=== PATIENT | female | born 2000 | race Caucasian/White ===

== ENCOUNTER 2018-08-10 11:23 | Emergency (ER) | payer BC, OTHER ==
--- OUTSIDE RECORDS SUMMARY | 2018-08-10 11:26 | XMS REPORT | Continuity of Care Document ---
:2000 Author Organization Interface Problems Problem Status Onset Classification Date Comments Source Date Reported ABDOMINAL Active [facility] CRAMPING 6 [facility] Discharge 04/03/2016 [facility] Diagnosis: 6 [facility] Abdominal pain in Discharge 03/21/2016 [facility] Diagnosis: 6 [facility] Normal IUP on ultrasound Discharge 03/21/2016 [facility] Diagnosis: 6 [facility] Dehydration VOMITING, 9 Active [facility] WEEKS 6 [place] Medications Medication Details Route Status Patient Ordering Order Source Instructions Provider Date Promethazine 25 mg, Route: Inactive [facility] IM, ONCE, 016 [place] Dosing Weight 60.318, kg, Priority: STAT, Start date: 03/31/16 20:52:00 CDT, Stop date: 03/31/16 20:52:00 CDT Ondansetron 4 mg, Route: Inactive [facility] IVP, ONCE, 016 [place] Dosing Weight 60.318, kg, Priority: STAT, Start date: 03/31/16 20:52:00 CDT, Stop date: 03/31/16 20:52:00 CDT Saline Flush 10 mL, Route: Inactive [facility] 0.9% IVP, Drug 016 [place] Form: INJ, Dosing Weight 60.318, kg, PRN, PRN Line Flush, Start date: 03/31/16 19:13:00 CDT, Duration: 30 day, Stop date: 04/30/16 19:12:00 CDTNotes: (Same as: BD Posiflush) Sodium Chloride 1,000 mL, Inactive [facility] 0.154 MEQ/ML 1,000 ml/hr, 016 [place] Injectable Infuse Over: Solution 1 hr, Route: IV, 1,000, Drug form: INJ, ONCE, Priority: STAT, Dosing Weight 60.318 kg, Start date: 03/31/16 19:13:00 CDT, Duration: 1 doses or times, Stop date: 03/31/16 19:13:00 CDT Phenergan 25 mg 25 mg=1 tab, Active [facility] oral tablet PO, Q6H, PRN 016 [place] Nausea, X 4 day, # 15 tab, 0 Refill(s) Promethazine 25 mg=1 supp, Active [facility] Hydrochloride 25 DC, Q6H, PRN 016 [place] MG Rectal Nausea & Suppository Vomiting, X 3 [Phenergan] day, # 12 supp, 0 Refill(s) Sodium Chloride 1,000 mL, Inactive [facility] 0.154 MEQ/ML Rate: 250 016 [place] Injectable ml/hr, Infuse Solution over: 4 hr, Route: IV, Dosing Weight 59.091 kg, Total Volume: 1,000, Start date: 03/18/16 16:48:00 CDT, Duration: 30 day, Stop date: 04/17/16 16:47:00 CDT Promethazine 12.5 mg, Inactive [facility] Route: IM, 016 [place] ONCE, Dosing Weight 59.091, kg, Priority: STAT, Start date: 03/18/16 15:34:00 CDT, Stop date: 03/18/16 15:34:00 CDT Sodium Chloride 2,000 mL, Inactive [facility] 0.154 MEQ/ML 4000 ml/hr, 016 [place] Injectable Infuse Over: Solution 30 minutes, Route: IV, 2,000, Drug form: INJ, ONCE, Priority: STAT, Dosing Weight 59.091 kg, Start date: 03/18/16 15:00:00 CDT, Duration: 1 doses or times, Stop date: 03/18/16 15:00:00 CDT Ondansetron 4 mg, 2 mL, Inactive [facility] Route: IVP, 016 [place] Drug form: INJ, ONCE, Dosing Weight 59.091, kg, Priority: STAT, Start date: 03/18/16 15:00:00 CDT, Stop date: 03/18/16 15:00:00 CDTNotes: (Same as: Zofran) MEDICATION WASTE Product Size: 4 mg Product Wasted: ___ mg Saline Flush 10 mL, Route: Inactive [facility] 0.9% IVP, Drug 016 [place] Form: INJ, Dosing Weight 59.091, kg, PRN, PRN Line Flush, Start date: 03/18/16 15:00:00 CDT, Duration: 30 day, Stop date: 04/17/16 14:59:00 CDTNotes: (Same as: BD Posiflush) Allergies, Adverse Reactions, Alerts Substance Category Reaction Severity Reaction Status Date Comments Source type Reported Immunizations Immunization Date Given Site Status Last Updated Comments Source Results Order Name Results Value Reference Date Interpretation Comments Source Range BLOOD BANK ABO/Rh O POS 04/01 [facility] [place] [id number] 04/01 [facility] mIU/mL [facility]AT[facility] Eosinophils # 0.1 K/CMM 0.0 - 0.5 04/01 [facility]EMAT[facility] Basophils # 0.0 K/CMM 0.0 - 0.2 04/01 [facility]EMAT[facility] Monocytes # 0.8 K/CMM 0.0 - 0.8 04/01 [facility] HEMAT[facility] Segs-Bands # 6.3 K/CMM 1.5 - 8.1 04/01 [facility]EMAT[facility] Lymphocytes # 2.8 K/CMM 1.0 - 5.5 04/01 [facility]EMAT[facility] Eosinophils 1.4 % 0.0 - 4.0 04/01 [facility] HEMAT[facility] Basophils 0.3 % 0.0 - 1.0 04/01 [facility]EMAT[facility] Lymphocytes 27.4 % 20.0 - 04/01 MH 40.0 [facility] HEMAT[facility] Monocytes 8.0 % 2.0 - 12.0 04/01 [facility] HEMAT[facility] Segs 62.9 % 45.0 - 08 [facility] 75.0 [facility] Hgb 11.7 g/dL 12.0 - 04/01 16.0 [facility] Hct 35.9 % 36.0 - 04/01 48.0 [facility] HEMAT[facility] WBC 10.1 K/CMM 3.7 - 10.4 04/01 [facility] HEMAT[facility] RBC 3.99 M/CMM 4.20 - 04/01 5.40 [facility] HEMAT[facility] MCV 90.0 fL 80.0 - 04/01 98.0 /2015 [facility] HEMAT[facility] MCH 29.3 pg 27.0 - 04/01 31.0 /2015 [facility] H[facility]AT[facility] MCHC 32.6 g/dL 32.0 - 04/01 36.0 /2015 [facility] HEMAT[facility] RDW 13.6 % 11.5 - 04/01 14.5 [facility]EMAT[facility] MPV 7.1 fL 7.4 - 10.4 04/01 [facility] HEMAT[facility] Platelet 322 K/CMM 133 - 450 04/01 [facility] URINE AND UA Bili Negative Negative 04/01 STOOL [facility] *NA* [facility] (03/31/16 7:46 PM) URINE AND UA 0.2 EU/dL 0.1 - 1.0 04/01 [facility] Urobilinogen [facility] URINE AND UA Nitrite Negative Negative 04/01 STOOL [facility] (03/31/16 7:46 PM) [facility] URINE AND UA Leuk Est Negative Negative 04/01 STOOL [facility] (03/31/16 7:46 PM) [facility] URINE AND UA Blood Trace Negative 04/01 STOOL [facility] *ABN* [facility] (03/31/16 7:46 PM) URINE AND UA Glucose Negative Negative 04/01 STOOL [facility] (03/31/16 7:46 PM) [place] URINE AND UA pH 6.0 5.0 - 8.0 04/01 STOOL [facility] URINE AND UA Protein Negative Negative 04/01 STOOL [facility] (03/31/16 7:46 PM) [place] URINE AND UA Ketones Negative Negative 04/01 STOOL [facility] *NA* [facility] (03/31/16 7:46 PM) URINE AND UA Spec Grav 1.025 <=1.030 04/01 STOOL [facility] URINE AND UA Turbidity Slight Cloudy Clear 04/01 STOOL [facility] (03/31/16 7:46 PM) [facility] URINE AND UA Color Yellow Yellow 04/01 STOOL [facility] *NA* [facility] (03/31/16 7:46 PM) URINE AND UA Mucus Few /LPF None Seen 04/01 STO[facility] /LPF [facility] URINE AND UA Bacteria Moderate None Seen 04/01 STO[facility] /HPF /HPF [facility] URINE AND UA RBC 0-2 /HPF 0 - 2 04/01 STOOL [facility] URINE AND UA WBC 0-2 /HPF None Seen 04/01 STOOL /HPF /2015 [facility] URINE AND Micro? Performed 04/01 [facility] (03/31/16 7:46 PM) [facility] URINE AND UA Sq Epi Few /LPF Few /LPF 04/01 STOOL [facility] Preg < Preg < 14wks EXAM: 03/31 - 14wks Single gest w /2015 - [facility] Single gest Transvag US Pelvic ultrasound. [facility] w Transvag US Read by: Lv Berrios MD Dictated Date/time: 03/31/16 20:34 INDICATION: Electronically Signed by: Lv Berrios MD 03/31/16 20:37 FINAL REPORT Pelvic pain. TECHNIQUE: Grayscale and Doppler sonogram of the pelvis. Transabdominal technique was used. Transvaginal technique was used for better evaluation of the pelvic viscera. Note: MSD=mean sac diameter. CRL=crown-rump length. LMP=last menstrual period. MA=mean gestational age. ZAIN=estimated date of delivery. COMPARISON: 03/18/16. FINDINGS: Uterus: Anteverted. Measures 11.8 x 6.1 x 7.6 cm. Endometrium: Intrauterine gestational sac. Gestational sac: MSD measures 3.97 cm. Shape is oval. Fetus: CRL measures 4.21 cm. Heart rate: 169 bpm. Other: Subchorionic hematoma: None. Amniotic fluid: Subjectively within normal limits. Maternal ovaries: Right: Measures 2.99 x 2.05 x 3.38 cm. Normal doppler flow. Left: Measures 3.22 x 1.54 x 2.84 cm. Normal doppler flow. Clinical: LMP: 01/15/16. MA: 10 weeks 6 days. ZAIN: 10/21/16. Ultrasound: MA: 10 weeks 3 days. ZAIN: 10/24/16. IMPRESSION: 1. Single live intrauterine . HEMATOLOGY D-Dimer 0.30 ug/mL 03/18 FEU /2015 [facility] [place] [id number] 03/18 GY mIU/mL /2015 [facility] CHEM PANEL eGFR 139 03/18 Result mL/min/1.73 /2016 Comment: The [facility] eGFR is [place] calculated using the modified Maya equation 0.413 x Height (cm) /Serum Creatinine (mg/dL). CHEM PANEL AST 12 unit/L 0 - 37 03/18 [facility] CHEM PANEL Total Protein 7.0 g/dL 6.4 - 8.4 03/18 [facility] CHEM PANEL Albumin Lvl 3.6 g/dL 3.5 - 5.0 03/18 [facility] CHEM PANEL Calcium Lvl 8.1 mg/dL 8.5 - 10.5 03/18 [facility] CHEM PANEL ALT 16 unit/L 0 - 65 03/18 [facility] CHEM PANEL Bili Total 0.2 mg/dL 0.2 - 1.3 03/18 [facility] CHEM PANEL Alk Phos 61 unit/L 39 - 136 03/18 [facility] CHEM PANEL CO2 27 meq/L 24 - 32 03/18 [facility] CHEM PANEL Chloride Lvl 105 meq/L 95 - 109 03/18 [facility] CHEM PANEL Glucose Lvl 75 mg/dL 70 - 99 03/18 [facility] CHEM PANEL BUN 7 mg/dL 7 - 22 03/18 [facility] CHEM PANEL Creatinine 0.48 mg/dL 0.50 - 03/18 MH Lvl 1.40 /2015 [facility] CHEM PANEL Potassium Lvl 3.8 meq/L 3.5 - 5.1 03/18 [facility] CHEM PANEL Sodium Lvl 140 meq/L 135 - 145 03/18 [facility] CHEM PANEL A/G Ratio 1.1 0.7 - 1.6 03/18 [facility] CHEM PANEL Globulin 3.4 g/dL 2.0 - 4.0 03/18 [facility] CHEM PANEL B/C Ratio 15 6 - 25 03/18 [facility] CHEM PANEL AGAP 11.8 meq/L 10.0 - 03/18 MH 20.0 [facility] CHEM PANEL Magnesium Lvl 2.0 mg/dL 1.8 - 2.4 03/18 [facility] CHEM PANEL Phosphorus 4.5 mg/dL 2.5 - 4.5 03/18 [facility] HEMATOLOGY Lymphocytes # 2.4 K/CMM 1.0 - 5.5 03/18 [facility] HEMATOLOGY Monocytes 7.7 % 2.0 - 12.0 03/18 [facility] HEMATOLOGY Segs 67.9 % 45.0 - 07/18 MH 75.0 /2015 [facility] HEMATOLOGY Lymphocytes 23.3 % 20.0 - 03/18 MH 40.0 /2015 [facility] HEMATOLOGY Eosinophils 0.9 % 0.0 - 4.0 03/18 MH [facility] HEMATOLOGY Basophils 0.2 % 0.0 - 1.0 03/18 MH [facility] HEMATOLOGY Segs-Bands # 6.9 K/CMM 1.5 - 8.1 03/18 [facility] HEMATOLOGY Monocytes # 0.8 K/CMM 0.0 - 0.8 03/18 MH [facility] HEMATOLOGY Eosinophils # 0.1 K/CMM 0.0 - 0.5 03/18 [facility] HEMATOLOGY Basophils # 0.0 K/CMM 0.0 - 0.2 03/18 [facility] HEMATOLOGY RDW 13.6 % 11.5 - 03/18 MH 14.5 [facility] HEMATOLOGY Platelet 316 K/CMM 133 - 450 03/18 [facility] HEMATOLOGY MPV 7.5 fL 7.4 - 10.4 03/18 [facility] HEMATOLOGY MCV 88.2 fL 80.0 - 03/18 MH 98.0 /2015 [facility] HEMATOLOGY MCH 29.8 pg 27.0 - 03/18 MH 31.0 [facility] HEMATOLOGY MCHC 33.8 g/dL 32.0 - 03/18 MH 36.0 /2015 [facility] HEMATOLOGY Hct 34.7 % 36.0 - 03/18 MH 48.0 /2015 [facility] HEMATOLOGY RBC 3.94 M/CMM 4.20 - 03/18 MH 5.40 /2015 [facility] HEMATOLOGY Hgb 11.7 g/dL 12.0 - 03/18 MH 16.0 [facility] HEMATOLOGY WBC 10.2 K/CMM 3.7 - 10.4 03/18 [facility] URINE AND UA Bacteria Few /HPF None Seen 03/18 MH STOOL /HPF /2015 [facility] URINE AND UA RBC 0-2 /HPF 0 - 2 03/18 MH STOOL /2016 [facility] URINE AND UA Amorph Few /HPF None Seen 03/18 STOOL [facility] /HPF /2015 [facility] URINE AND UA Spec Grav 1.020 <=1.030 03/18 STOOL /2015 [facility] URINE AND UA 0.2 EU/dL 0.1 - 1.0 03/18 STOOL Urobilinogen /2015 [facility] URINE AND UA Blood Trace Negative 03/18 STOOL [facility] *ABN* [facility] (03/18/16 1:37 PM) URINE AND UA Bili Negative Negative 03/18 [facility] *NA* [facility] (03/18/16 1:37 PM) URINE AND UA Glucose Negative Negative 03/18 STOOL [facility] (03/18/16 1:37 PM) [place] URINE AND UA Protein Negative Negative 03/18 STOOL [facility] (03/18/16 1:37 PM) [place] URINE AND UA pH 7.0 5.0 - 8.0 03/18 STOOL [facility] URINE AND UA Ketones Negative Negative 03/18 [facility] *NA* [facility] (03/18/16 1:37 PM) URINE AND UA Turbidity Slight Cloudy Clear 03/18 [facility] (03/18/16 1:37 PM) [place] URINE AND UA Color Yellow Yellow 03/18 [facility] *NA* [facility] (03/18/16 1:37 PM) URINE AND UA Leuk Est Negative Negative 03/18 [facility] (03/18/16 1:37 PM) [place] URINE AND UA Nitrite Negative Negative 03/18 STOOL [facility] (03/18/16 1:37 PM) [place] URINE AND UA WBC 0-2 /HPF None Seen 03/18 /HPF [facility] URINE AND UA Sq Epi Rare /LPF Few /LPF 03/18 [facility] URINE CHEM U Preg Positive Negative 03/18 [facility] *ABN* [facility] (03/18/16 1:37 PM) Preg < Preg < 14wks EXAM: 03/18 - 14wks sing sing gest w /2015 - [facility] gest w transvag/Dop Pelvic ultrasound. [facility] transvag/Do US p US Read by: Jose Alberto Rock MD Dictated Date/time: 03/18/16 16:32 INDICATION: Electronically Signed by: Jose Alberto Rock MD 03/18/16 16:35 FINAL REPORT Pelvic pain. Age: 15 years. Gender: Female. TECHNIQUE: Grayscale and Doppler sonogram of the pelvis. Transabdominal technique was used. Transvaginal technique was used for better evaluation of the pelvic viscera. Note: MSD=mean sac diameter. CRL=crown-rump length. LMP=last menstrual period. MA=mean gestational age. ZAIN=estimated date of delivery. COMPARISON: None. FINDINGS: Uterus: Visualization: Well seen. Anteverted. Measures 9.1 x 5.6 x 7 cm. Endometrium: Intrauterine gestational sac. Gestational sac: MSD measures 3.7 cm. Shape is oval. Fetus: CRL measures 2.5 cm. Heart rate: 170 bpm. Other: Subchorionic hematoma: None. Amniotic fluid: Subjectively within normal limits. Maternal ovaries: Right: Measures 2.8 x 1.7 x 2.2 cm. Doppler flow present. Left: Measures 2.6 x 1.9 x 2.1 cm. Doppler flow present. Clinical: LMP: 01/15/2016. MA: 9 weeks 0 days. ZAIN: 10/21/2016. Ultrasound: MA: 9 weeks 2 days. ZAIN: 10/19/2016. IMPRESSION: 1. Single live intrauterine . Vital Signs Vital Sign Value Date Comments Source Respitory Rate 17 04/01/2016 [facility] Heart Rate 88 04/01/2016 [facility] Height 162.56 cm 03/31/2016 [facility] BMI Calculated 22.83 03/31/2016 [facility] Weight 60.318 03/31/2016 [facility] Systolic (mm Hg) 131 03/31/2016 [facility] Diastolic (mm Hg) 69 03/31/2016 [facility] Heart Rate 87 03/31/2016 [facility] Respitory Rate 18 03/31/2016 [facility] Temperature Oral (F) 97.4 F 03/31/2016 [facility] Systolic (mm Hg) 112 03/18/2016 [facility] Diastolic (mm Hg) 62 03/18/2016 [facility] Heart Rate 88 03/18/2016 [facility] Respitory Rate 20 03/18/2016 [facility] Temperature Oral (F) 98.2 F 03/18/2016 [facility] Weight 59.091 03/18/2016 [facility] BMI Calculated 22.36 03/18/2016 [facility] Height 162.56 cm 03/18/2016 [facility] Temperature Oral (F) 98.2 F 03/18/2016 [facility] Respitory Rate 20 03/18/2016 [facility] Heart Rate 92 03/18/2016 [facility] Systolic (mm Hg) 105 03/18/2016 [facility] Diastolic (mm Hg) 66 03/18/2016 [facility] Encounters Location Location Encounter Encounter Reason Attending ADM DC Status Source Details Type Number For Provider Date Date Visit [facility] [id number] Radha 03/18 03/18 [facility] [place] [facility] /2015 [facility] [place] [id number] Crcharis Reynaga 03/31 04/01 [facility] [place] [facility] /2015 [facility] [id number] CAROLA-LILI 04/25 [facility] /2015 [facility] [id number] CAROLA-LILI 05/23 Active [facility] /2016 [facility] Procedures Procedure Code Date Perfomer Comments Source
--- OUTSIDE RECORDS SUMMARY | 2018-08-10 11:27 | XMS REPORT | Summary of Care ---
:2000 Author Organization [facility] Address [address], [place] [address]- Encounter [facility] Tylor(REBECCA) [id number] Date(s): 03/31/16 - 03/31/16 [facility] [address] [place] [address]- Discharge Diagnosis: Abdominal pain in Discharge Disposition: Home or Self Care Attending Physician: Cr Reynaga MD Vital Signs Most recent to oldest [Reference Range]: 1 2 Height 162.56 cm (03/31/16 6:44 PM) Temperature Oral [96.8-99.7 DegF] 97.4 DegF (03/31/16 6:44 PM) Blood Pressure [90-138/45-84 mmHg] 131/69 mmHg (03/31/16 6:44 PM) Respiratory Rate [14-20 BRMIN] 17 BRMIN 18 BRMIN (03/31/16 9:58 PM) (03/31/16 6:44 PM) Peripheral Pulse Rate [55-90 bpm] 88 bpm 87 bpm (03/31/16 9:58 PM) (03/31/16 6:44 PM) Weight 60.318 kg (03/31/16 6:44 PM) Body Mass Index 22.83 m2 (03/31/16 6:44 PM) Problem List No data available for this section Allergies, Adverse Reactions, Alerts Substance Reaction Severity Status NKDA Active Medications ondansetron 4 mg, Route: IVP, ONCE, Dosing Weight 60.318, kg, Priority: STAT, Start date: 20:52:00 CDT,Stop date: 03/31/16 20:52:00 CDT Start Date: 03/31/16 Stop Date: 03/31/16 Status: Discontinuedpromethazine 25 mg, Route: IM, ONCE, Dosing Weight 60.318, kg, Priority: STAT, Start date: 20:52:00 CDT,Stop date: 03/31/16 20:52:00 CDT Start Date: 03/31/16 Stop Date: 03/31/16 Status: CompletedSaline Flush 0.9% 10 mL, Route: IVP, Drug Form: INJ, Dosing Weight 60.318, kg, PRN, PRN Line Flush , Start date: 03/31/16 19:13:00 CDT, Duration: 30 day, Stop date: 04/30/16 19:12 :00 CDT Notes: (Same as: BD Posiflush) Start Date: 03/31/16 Stop Date: 03/31/16 Status: DiscontinuedSodium Chloride 0.9% (Bolus) IV 1,000 mL, 1,000 ml/hr, Infuse Over: 1 hr, Route: IV, 1,000, Drug form: INJ, ONCE , Priority: STAT, Dosing Weight 60.318 kg, Start date: 03/31/16 19:13:00 CDT, Duration: 1 doses or times, Stop date: 03/31/16 19:13:00 CDT Start Date: 03/31/16 Stop Date: 03/31/16 Status: Completed Results BLOOD BANK RESULTS Most recent to oldest [Reference Range]: 1 ABO/Rh O POS *Unknown* (03/31/16 7:46 PM) ENDOCRINOLOGY Most recent to oldest [Reference Range]: 1 h[place] Tot 44190 mIU/mL *NA* (03/31/16 7:46 PM) URINE AND STOOL Most recent to oldest [Reference Range]: 1 UA Turbidity [Clear] Slight Cloudy (03/31/16 7:46 PM) UA Color [Yellow] Yellow *NA* (03/31/16 7:46 PM) UA pH [5.0-8.0] 6.0 (03/31/16 7:46 PM) UA Spec Grav [<=1.030] 1.025 (03/31/16 7:46 PM) UA Glucose [Negative] Negative (03/31/16 7:46 PM) UA Blood [Negative] Trace *ABN* (03/31/16 7:46 PM) UA Ketones [Negative] Negative *NA* (03/31/16 7:46 PM) UA Protein [Negative] Negative (03/31/16 7:46 PM) UA Urobilinogen [0.1-1.0 EU/dL] 0.2 EU/dL (03/31/16 7:46 PM) UA Bili [Negative] Negative *NA* (03/31/16 7:46 PM) UA Leuk Est [Negative] Negative (03/31/16 7:46 PM) UA Nitrite [Negative] Negative (03/31/16 7:46 PM) UA WBC [None Seen /HPF] 0-2 /HPF (03/31/16 7:46 PM) UA RBC [0-2 /HPF] 0-2 /HPF (03/31/16 7:46 PM) UA Bacteria [None Seen /HPF] Moderate /HPF (03/31/16 7:46 PM) UA Sq Epi [Few /LPF] Few /LPF (03/31/16 7:46 PM) UA Mucus [None Seen /LPF] Few /LPF (03/31/16 7:46 PM) Micro? Performed (03/31/16 7:46 PM) HEMATOLOGY Most recent to oldest [Reference Range]: 1 WBC [3.7-10.4 K/CMM] 10.1 K/CMM (03/31/16 7:46 PM) RBC [4.20-5.40 M/CMM] 3.99 M/CMM *LOW* (03/31/16 7:46 PM) Hgb [12.0-16.0 g/dL] 11.7 g/dL *LOW* (03/31/16 7:46 PM) Hct [36.0-48.0 %] 35.9 % *LOW* (03/31/16 7:46 PM) MCV [80.0-98.0 fL] 90.0 fL (03/31/16 7:46 PM) MCH [27.0-31.0 pg] 29.3 pg (03/31/16 7:46 PM) MCHC [32.0-36.0 g/dL] 32.6 g/dL (03/31/16 7:46 PM) RDW [11.5-14.5 %] 13.6 % (03/31/16 7:46 PM) Platelet [133-450 K/CMM] 322 K/CMM (03/31/16 7:46 PM) MPV [7.4-10.4 fL] 7.1 fL *LOW* (03/31/16 7:46 PM) Segs [45.0-75.0 %] 62.9 % (03/31/16 7:46 PM) Lymphocytes [20.0-40.0 %] 27.4 % (03/31/16 7:46 PM) Monocytes [2.0-12.0 %] 8.0 % (03/31/16 7:46 PM) Eosinophils [0.0-4.0 %] 1.4 % (03/31/16 7:46 PM) Basophils [0.0-1.0 %] 0.3 % (03/31/16 7:46 PM) Segs-Bands # [1.5-8.1 K/CMM] 6.3 K/CMM (03/31/16 7:46 PM) Lymphocytes # [1.0-5.5 K/CMM] 2.8 K/CMM (03/31/16 7:46 PM) Monocytes # [0.0-0.8 K/CMM] 0.8 K/CMM (03/31/16 7:46 PM) Eosinophils # [0.0-0.5 K/CMM] 0.1 K/CMM (03/31/16 7:46 PM) Basophils # [0.0-0.2 K/CMM] 0.0 K/CMM (03/31/16 7:46 PM) Immunizations No data available for this section Procedures No data available for this section Social History Social History Type Response Smoking Status Never smoker; Previous treatment: None; Concerns about tobacco use in household: No; Exposure to Tobacco Smoke None; Cigarette Smoking Last 365 Days Yes; Reg Smoking Cessation Counseling No Assessment and Plan No data available for this section
--- OUTSIDE RECORDS SUMMARY | 2018-08-10 11:27 | XMS REPORT | Summary of Care ---
:2000 Author Organization [facility] Address [address], [place] [address]- Encounter [facility](FIN) [phone] Date(s): 03/18/16 - 03/18/16 [facility] [address] [place] [address]- Discharge Diagnosis: Normal IUP (intrauterine ) on ultrasound Discharge Diagnosis: Dehydration Discharge Disposition: Home or Self Care Attending Physician: Radha Penny MD Vital Signs Most recent to oldest [Reference Range]: 1 2 Height 162.56 cm (03/18/16 1:22 PM) Temperature Oral [96.8-99.7 DegF] 98.2 DegF 98.2 DegF (03/18/16 5:47 PM) (03/18/16 1:22 PM) Blood Pressure [90-138/45-84 mmHg] 112/62 mmHg 105/66 mmHg (03/18/16 5:47 PM) (03/18/16 1:22 PM) Respiratory Rate [14-20 BRMIN] 20 BRMIN 20 BRMIN (03/18/16 5:47 PM) (03/18/16 1:22 PM) Peripheral Pulse Rate [55-90 bpm] 88 bpm 92 bpm (03/18/16 5:47 PM) *HI* (03/18/16 1:22 PM) Weight 59.091 kg (03/18/16 1:22 PM) Body Mass Index 22.36 m2 (03/18/16 1:22 PM) Problem List No data available for this section Allergies, Adverse Reactions, Alerts Substance Reaction Severity Status NKDA Active Medications ondansetron 4 mg, 2 mL, Route: IVP, Drug form: INJ, ONCE, Dosing Weight 59.091, kg, Priority : STAT, Start date: 03/18/16 15:00:00 CDT, Stop date: 03/18/16 15:00:00 CDT Notes: (Same as: Zofran) MEDICATION WASTE Product Size: 4 mgProduct Wasted: ___ mg Start Date: 03/18/16 Stop Date: 03/18/16 Status: DiscontinuedPhenergan 25 mg oral tablet 25 mg=1 tab, PO, Q6H, PRN Nausea, X 4 day, # 15 tab, 0 Refill(s) Start Date: 03/18/16 Stop Date: 03/22/16 Status: OrderedPhenergan 25 mg rectal suppository 25 mg=1 supp, [place], Q6H, PRN Nausea & Vomiting, X 3 day, # 12 supp, 0 Refill(s ) Start Date: 03/18/16 Stop Date: 03/21/16 Status: Orderedpromethazine 12.5 mg, Route: IM, ONCE, Dosing Weight 59.091, kg, Priority: STAT, Start date: 03/18/16 15:34:00 CDT, Stop date: 03/18/16 15:34:00 CDT Start Date: 03/18/16 Stop Date: 03/18/16 Status: CompletedSaline Flush 0.9% 10 mL, Route: IVP, Drug Form: INJ, Dosing Weight 59.091, kg, PRN, PRN Line Flush , Start date: 03/18/16 15:00:00 CDT, Duration: 30 day, Stop date: 04/17/16 14:59 :00 CDT Notes: (Same as: BD Posiflush) Start Date: 03/18/16 Stop Date: 03/18/16 Status: Discontinuedsodium chloride 0.9% 1000 ml INJ 1,000 mL 1,000 mL, Rate: 250 ml/hr, Infuse over: 4 hr, Route: IV, Dosing Weight 59.091 kg , Total Volume: 1,000, Start date: 03/18/16 16:48:00 CDT, Duration: 30 day, Stop date: 04/17/16 16:47:00 CDT Start Date: 03/18/16 Stop Date: 03/18/16 Status: DiscontinuedSodium Chloride 0.9% IV (Sodium Chloride 0.9% (Bolus) IV) 2,000 mL, 4000 ml/hr, Infuse Over: 30 minutes, Route: IV, 2,000, Drug form: INJ , ONCE, Priority: STAT, Dosing Weight 59.091 kg, Start date: 03/18/16 15:00:00 CDT, Duration: 1 doses or times, Stop date:03/18/16 15:00:00 CDT Start Date: 03/18/16 Stop Date: 03/18/16 Status: Completed Results ELECTROLYTES Most recent to oldest [Reference Range]: 1 Sodium Lvl [135-145 mEq/L] 140 mEq/L (03/18/16 3:30 PM) Potassium Lvl [3.5-5.1 mEq/L] 3.8 mEq/L (03/18/16 3:30 PM) Chloride Lvl [95-109 mEq/L] 105 mEq/L (03/18/16 3:30 PM) CO2 [24-32 mEq/L] 27 mEq/L (03/18/16 3:30 PM) AGAP [10.0-20.0 mEq/L] 11.8 mEq/L (03/18/16 3:30 PM) CHEM PANEL Most recent to oldest [Reference Range]: 1 Creatinine Lvl [0.50-1.40 mg/dL] 0.48 mg/dL *LOW* (03/18/16 3:30 PM) eGFR 139 mL/min/1.73m2 1 *NA* (03/18/16 3:30 PM) BUN [7-22 mg/dL] 7 mg/dL (03/18/16 3:30 PM) B/C Ratio [6-25] 15 (03/18/16 3:30 PM) Glucose Lvl [70-99 mg/dL] 75 mg/dL (03/18/16 3:30 PM) Total Protein [6.4-8.4 g/dL] 7.0 g/dL (03/18/16 3:30 PM) Albumin Lvl [3.5-5.0 g/dL] 3.6 g/dL (03/18/16 3:30 PM) Globulin [2.0-4.0 g/dL] 3.4 g/dL (03/18/16 3:30 PM) A/G Ratio [0.7-1.6] 1.1 (03/18/16 3:30 PM) Calcium Lvl [8.5-10.5 mg/dL] 8.1 mg/dL *LOW* (03/18/16 3:30 PM) Phosphorus [2.5-4.5 mg/dL] 4.5 mg/dL (03/18/16 3:30 PM) Magnesium Lvl [1.8-2.4 mg/dL] 2.0 mg/dL (03/18/16 3:30 PM) ALT [0-65 unit/L] 16 unit/L (03/18/16 3:30 PM) AST [0-37 unit/L] 12 unit/L (03/18/16 3:30 PM) Alk Phos [39-136 unit/L] 61 unit/L (03/18/16 3:30 PM) Bili Total [0.2-1.3 mg/dL] 0.2 mg/dL (03/18/16 3:30 PM) 1Result Comment: The eGFR is calculated using the modified Maya equation 0.413 x Height (cm) /Serum Creatinine (mg/dL).ENDOCRINOLOGY Most recent to oldest [Reference Range]: 1 [place] Tot 36948 mIU/mL *NA* (03/18/16 3:40 PM) URINE CHEM Most recent to oldest [Reference Range]: 1 U Preg [Negative] Positive *ABN* (03/18/16 1:37 PM) URINE AND STOOL Most recent to oldest [Reference Range]: 1 UA Turbidity [Clear] Slight Cloudy (03/18/16 1:37 PM) UA Color [Yellow] Yellow *NA* (03/18/16 1:37 PM) UA pH [5.0-8.0] 7.0 (03/18/16 1:37 PM) UA Spec Grav [<=1.030] 1.020 (03/18/16 1:37 PM) UA Glucose [Negative] Negative (03/18/16 1:37 PM) UA Blood [Negative] Trace *ABN* (03/18/16 1:37 PM) UA Ketones [Negative] Negative *NA* (03/18/16 1:37 PM) UA Protein [Negative] Negative (03/18/16 1:37 PM) UA Urobilinogen [0.1-1.0 EU/dL] 0.2 EU/dL (03/18/16 1:37 PM) UA Bili [Negative] Negative *NA* (03/18/16 1:37 PM) UA Leuk Est [Negative] Negative (03/18/16 1:37 PM) UA Nitrite [Negative] Negative (03/18/16 1:37 PM) UA WBC [None Seen /HPF] 0-2 /HPF (03/18/16 1:37 PM) UA RBC [0-2 /HPF] 0-2 /HPF (03/18/16 1:37 PM) UA Bacteria [None Seen /HPF] Few /HPF (03/18/16 1:37 PM) UA Sq Epi [Few /LPF] Rare /LPF (03/18/16 1:37 PM) UA Amorph Leslie [None Seen /HPF] Few /HPF *ABN* (03/18/16 1:37 PM) HEMATOLOGY Most recent to oldest [Reference Range]: 1 WBC [3.7-10.4 K/CMM] 10.2 K/CMM (03/18/16 3:30 PM) RBC [4.20-5.40 M/CMM] 3.94 M/CMM *LOW* (03/18/16 3:30 PM) Hgb [12.0-16.0 g/dL] 11.7 g/dL *LOW* (03/18/16 3:30 PM) Hct [36.0-48.0 %] 34.7 % *LOW* (03/18/16 3:30 PM) MCV [80.0-98.0 fL] 88.2 fL (03/18/16 3:30 PM) MCH [27.0-31.0 pg] 29.8 pg (03/18/16 3:30 PM) MCHC [32.0-36.0 g/dL] 33.8 g/dL (03/18/16 3:30 PM) RDW [11.5-14.5 %] 13.6 % (03/18/16 3:30 PM) Platelet [133-450 K/CMM] 316 K/CMM (03/18/16 3:30 PM) MPV [7.4-10.4 fL] 7.5 fL (03/18/16 3:30 PM) Segs [45.0-75.0 %] 67.9 % (03/18/16 3:30 PM) Lymphocytes [20.0-40.0 %] 23.3 % (03/18/16 3:30 PM) Monocytes [2.0-12.0 %] 7.7 % (03/18/16 3:30 PM) Eosinophils [0.0-4.0 %] 0.9 % (03/18/16 3:30 PM) Basophils [0.0-1.0 %] 0.2 % (03/18/16 3:30 PM) Segs-Bands # [1.5-8.1 K/CMM] 6.9 K/CMM (03/18/16 3:30 PM) Lymphocytes # [1.0-5.5 K/CMM] 2.4 K/CMM (03/18/16 3:30 PM) Monocytes # [0.0-0.8 K/CMM] 0.8 K/CMM (03/18/16 3:30 PM) Eosinophils # [0.0-0.5 K/CMM] 0.1 K/CMM (03/18/16 3:30 PM) Basophils # [0.0-0.2 K/CMM] 0.0 K/CMM (03/18/16 3:30 PM) D-Dimer 0.30 ug/mL FEU *NA* (03/18/16 4:55 PM) Immunizations No data available for this [...]
[2018-08-10] MEDS ORDERED: NA CHLORIDE 0.9% 1,000 ML ONE (12:41)
[2018-08-10 12:48] LABS: Urine Bacteria LOADED /HPF (<20); Urine Culture Reflex Order NOT NEEDED; Urine White Blood Cell Casts 0-5 /LPF (NONE SEEN)
[2018-08-10 12:51] LABS: Absolute Lymphocytes (CBC) 2.5 K/uL (0.7-4.9); Absolute Monocytes 0.4 K/uL (0.1-1.3); Absolute Neutrophil 3.4 K/uL (1.8-8.0); Basophils % 0.3 % (0-1.3); Eosinophils % 1.9 % (0-4.4); Hematocrit 37.8 % (36.0-45.0); MCH 28.1 pg (27.0-35.0); MCV 83.4 fL (80-100); MPV 7.7 fL (7.6-11.3); RBC Red Blood Cell Count 4.54 M/uL (3.86-4.86)
[2018-08-10 13:02] LABS: BUN Blood Urea Nitrogen 7 mg/dL (7-18); Bicarbonate 27 mmol/L (21-32); Glucose Level 77 mg/dL (74-106); Potassium 3.5 mmol/L (3.5-5.1); Sodium Level 140 mmol/L (136-145)
--- NOTE | 2018-08-10 14:38 | RAD REPORT ---
EXAM DESCRIPTION: CT - Abdomen Pelvis W Contrast - 08/10/2018 2:20 pm CLINICAL HISTORY: UTI symptoms, dysuria, hematuria, fever and chills COMPARISON: None. TECHNIQUE: Biphasic, helical CT imaging of the abdomen and pelvis was performed following 100 ml non -ionic IV contrast. Oral contrast was given. All CT scans are performed using dose optimization technique as appropriate and may include automated exposure control or mA/KV adjustment according to patient size. FINDINGS: No suspicious findings in the lung bases. The liver, spleen, and pancreas show no suspicious findings. Gallbladder and biliary tree are also wi thout suspicious finding. Symmetric renal function is seen with no hydronephrosis or suspicious renal mass. No pyelonephritis f indings. There is minimal wall thickening of the ureters which could be a mild infectious/ inflammato ry process. This has not reached either renal pelvis. Urinary bladder morris are mildly prominent and may reflect a mild cystitis. No bladder calculus. No focal bladder wall thickening or mass. No gastric dilatation or wall thickening. No acute large or small bowel finding. No appendicitis find ings. Uterus and ovaries show no suspicious findings. No free air or pneumatosis. Physiologic quantity of free fluid is seen in the cul de sac. No hernia, mass or bulky lymphadenopathy. No adrenal abnormali ty. No suspicious bony findings. IMPRESSION: No pyelonephritis or acute renal parenchymal process seen. Mild prominence of the urinary bladder morris and ureter morris that may indicate cystitis/ ureteritis. 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
--- NOTE | 2018-08-10 14:56 | ER ---
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 Transition of care: patient was not received from another setting of care. Onset of symptoms was August 10, 2018. Risk Assessment: Do you want to hurt yourself or someone else? Patient reports no desire to harm self or others. Initial Sepsis Screen: Does the patient meet any 2 criteria? No. Patient's initial sepsis screen is negative. Does the patient have a suspected source of infection? No. Patient's initial sepsis screen is negative. Care prior to arrival: None. 11:48 Method Of Arrival: Ambulatory 11:48 Acuity: HALLEY 3 hj Triage Assessment: 11:51 General: Appears in no apparent distress. uncomfortable, Behavior is calm, cooperative, hj appropriate for age. Pain: Complains of pain in back Pain currently is 7 out of 10 on a pain scale. LINE PILOT: 11:52 LMP N/A - control method Historical: - Allergies: 11:51 No Known Allergies; hj - Home Meds: 11:51 control pill [Active]; hj - PMHx: 11:51 allergy; Anxiety; Depression; hj - PSHx: 11:51 None; hj - Immunization history:: Adult Immunizations up to date. - Social history:: Smoking status: Patient/guardian denies using tobacco, Patient/guardian denies using alcohol. - Ebola Screening: : Patient negative for fever greater than or equal to 101.5 degrees Fahrenheit, and additional compatible Ebola Virus Disease symptoms Patient denies exposure to infectious person Patient denies travel to an Ebola-affected area in the 21 days before illness onset. Screenin:52 Abuse screen: Denies threats or abuse. Denies injuries from another. Nutritional hj screening: No deficits noted. Tuberculosis screening: No symptoms or risk factors identified. Fall Risk None identified. Assessment: 12:14 General: Appears in no apparent distress. Behavior is calm, cooperative. Pain: iw Complains of pain in back. Neuro: Level of Consciousness is awake, alert, Oriented to person, place, time, situation, Moves all extremities. Full function. Cardiovascular: Capillary refill < 3 seconds Patient's skin is warm and dry. Respiratory: Respiratory effort is even, unlabored. 12:14 : Reports burning with urination, pain in suprapubic area. Derm: Skin is intact, is iw healthy with good turgor. 13:48 Reassessment: Patient appears in no apparent distress at this time. Patient and/or iw family updated on plan of care and expected duration. Pain level reassessed. Patient is alert, oriented x 3, equal unlabored respirations, skin warm/dry/pink. pt requesting pain and nausea medication, MADHURI Cruz notified. Vital Signs: 11:52 BP 127 / 92; Pulse 83; Resp 18; Temp 98.0(O); Pulse Ox 100% on R/A; Weight 65.77 kg; hj Height 5 ft. 4 in. (162.56 cm); Pain 7/10; 14:04 BP 120 / 82; Pulse 61; Resp 16; Temp 98.8(O); Pulse Ox 100% on R/A; Pain 7/10; iw 11:52 Body Mass Index 24.89 (65.77 kg, 162.56 cm) ED Course: 11:28 Patient arrived in ED. sb2 11:49 Triage completed. hj 11:52 [facility]ache[facility]C [facility]. kb 11:52 Bucky Packer MD is Attending Physician. kb 11:52 Arm band placed on right wrist. hj 11:53 Patient has correct armband on for positive identification. Bed in low position. Call light in reach. Side rails up X 1. 12:00 Urine collected: clean catch specimen, clear, aftab colored, Amount Voided: 120mL jp3 organish yellow in color with fish like smell. 12:06 Jada Merrill RN is Primary Nurse. ph 12:07 Primary Nurse role handed off by Jada Merrill RN iw 12:07 Remy, Rosette, RN is Primary Nurse. iw 12:20 Initial lab(s) drawn, by me, sent to lab. Inserted saline lock: 20 gauge in right jp3 antecubital area, using aseptic technique. Blood collected. 12:29 Urine Culture Sent. jp3 12:29 Urine Microscopic Only Sent. jp3 12:29 CBC with Diff Sent. jp3 12:29 Basic Metabolic Panel Sent. jp3 12:29 Urine --Ancillary (enter results) Sent. jp3 12:29 Urine Dipstick--Ancillary (enter results) Sent. jp3 14:20 CT Abd/Pelvis - W/Contrast In Process Unspecified. EDMS 15:17 No provider procedures requiring assistance completed. IV discontinued, bleeding rv controlled, No redness/swelling at site. Pressure dressing applied. Administered Medications: 12:39 Drug: NS 0.9% 1000 ml Route: IV; Rate: 1000 ml; Site: right antecubital; iw 15:17 Follow up: IV Status: Completed infusion rv 14:05 Drug: Phenergan 12.5 mg Route: IVP; Site: right antecubital; iw 15:17 Follow up: Response: No adverse reaction rv 15:16 Drug: TORadol 30 mg Route: IVP; Site: right antecubital; rv 15:16 Follow up: Response: Medication administered at discharge. rv Outcome: 14:56 Discharge ordered by . kb 15:18 Discharged to home ambulatory. rv 15:18 Condition: good 15:18 Discharge instructions given to patient, Instructed on discharge instructions, follow up and referral plans. medication usage, Demonstrated understanding of instructions, follow-up care, medications, Prescriptions given X 1. 15:19 Patient left the ED. rv Signatures: Dispatcher [employer] EDMS Nancy Pacheco, HAT CLEANER-C HAT CLEANER-Ckb Rosette Alberto, RN RN Jada Merrill RN RN Reed Camarillo RN RN Cathleen Porter sb2 Ramesh Kiran RN RN Se Wilkerson jp3 Corrections: (The following items were deleted from the chart) 11:54 11:52 Pulse 83bpm; Resp 18bpm; Pulse Ox 100% RA; Temp 98.0F Oral; 65.77 kg; Height 5 hj ft. 4 in.; BMI: 24.8; Pain 7/10; hj 14:59 12:14 Pain: Complains of pain in suprapubic area iw iw
--- NOTE | 2018-08-10 14:56 | EDPHYS ---
Physician Documentation [facility] Name: Jen Alberto Age: 18 yrs Sex: Female : 2000 Arrival Date: 08/10/2018 Time: 11:28 Bed 9 Private MD: ED Physician Bucky Packer HPI: 08/10 14:47 This 18 yrs old Female presents to ER via Ambulatory with complaints of kb Urinary Problem. 14:47 The patient presents with flank pain, bilaterally, urinary symptoms, dysuria, kb frequency, hematuria. Onset: The symptoms/episode began/occurred 1.5 week(s) ago. Modifying factors: The symptoms are alleviated by nothing, the symptoms are aggravated by urinating. Associated signs and symptoms: Pertinent positives: dysuria, hematuria, urinary frequency. Severity of symptoms: At their worst the symptoms were moderate, in the emergency department the symptoms are unchanged. The patient has experienced similar episodes in the past, and the symptoms today are exactly the same. The patient has been recently seen by a physician: the patient's primary care provider. Pt reports bilateral flank pain, dysuria, hematuria, and frequency for a week and a half. Reports recurrent UTIs since childhood. Was hospitalized a couple of months ago for pyelonephritis. Was seen by urologist while admitted and told to take 3 days of Macrobid if UTI symptoms returned. Took 3 days worth at the onset of these symptoms and called Urologist when symptoms did not improve, was told to give it a few more days. Called PCP today and was told to come to ER for evaluation. . 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 - Social history:: Smoking status: Patient/guardian denies using tobacco, Patient/guardian denies using alcohol. - Ebola Screening: : Patient negative for fever greater than or equal to 101.5 degrees Fahrenheit, and additional compatible Ebola Virus Disease symptoms Patient denies exposure to infectious person Patient denies travel to an Ebola-affected area in the 21 days before illness onset. ROS: 14:47 Constitutional: Negative for fever, chills, and weight loss, ENT: Negative for injury, kb pain, and discharge, Neck: Negative for injury, pain, and swelling, Cardiovascular: Negative for chest pain, palpitations, and edema, Respiratory: Negative for shortness of breath, cough, wheezing, and pleuritic chest pain, Abdomen/GI: Negative for abdominal pain, nausea, vomiting, diarrhea, and constipation, MS/Extremity: Negative for injury and deformity, Skin: Negative for injury, rash, and discoloration, Neuro: Negative for headache, weakness, numbness, tingling, and seizure. 14:47 : Positive for urinary symptoms, flank pain, urinary frequency, hematuria, burning with urination, foul smelling urine. Exam: 14:47 Constitutional: This is a well developed, well nourished patient who is awake, alert, kb and in no acute distress. Head/Face: Normocephalic, atraumatic. Chest/axilla: Normal chest wall appearance and motion. Nontender with no deformity. No lesions are appreciated. Cardiovascular: Regular rate and rhythm with a normal S1 and S2. No gallops, murmurs, or rubs. Normal PMI, no JVD. No pulse deficits. Respiratory: Lungs have equal breath sounds bilaterally, clear to auscultation and percussion. No rales, rhonchi or wheezes noted. No increased work of breathing, no retractions or nasal flaring. Abdomen/GI: Soft, non-tender, with normal bowel sounds. No distension or tympany. No guarding or rebound. No evidence of tenderness throughout. Skin: Warm, dry with normal turgor. Normal color with no rashes, no lesions, and no evidence of cellulitis. MS/ Extremity: Pulses equal, no cyanosis. Neurovascular intact. Full, normal range of motion. Neuro: Awake and alert, GCS 15, oriented to person, place, time, and situation. Cranial nerves II-XII grossly intact. Motor strength 5/5 in all extremities. Sensory grossly intact. Cerebellar exam normal. Normal gait. Vital Signs: 11:52 BP 127 / 92; Pulse 83; Resp 18; Temp 98.0(O); Pulse Ox 100% on R/A; Weight 65.77 kg; hj Height 5 ft. 4 in. (162.56 cm); Pain 7/10; 14:04 BP 120 / 82; Pulse 61; Resp 16; Temp 98.8(O); Pulse Ox 100% on R/A; Pain 03/10; iw 11:52 Body Mass Index 24.89 (65.77 kg, 162.56 cm) MDM: 12:05 Patient medically screened. kb 14:46 Data reviewed: vital signs, nurses notes. Data interpreted: Pulse oximetry: on room air kb is 100 %. Interpretation: normal. Counseling: I had a detailed discussion with the patient and/or guardian regarding: the historical points, exam findings, and any diagnostic results supporting the discharge/admit diagnosis, lab results, radiology results, the need for outpatient follow up, a family practitioner, a urologist, to return to the emergency department if symptoms worsen or persist or if there are any questions or concerns that arise at home. 08/10 11:54 Order name: Urine Microscopic Only; Complete Time: 13:56 hj 08/10 12:12 Order name: CBC with Diff; Complete Time: 13:56 kb 08/10 12:12 Order name: Basic Metabolic Panel; Complete Time: 13:56 kb 08/10 12:12 Order name: Urine Culture kb 08/10 12:14 Order name: Urine Dipstick--Ancillary (enter results) eb 08/10 12:14 Order name: Urine --Ancillary (enter results) eb 08/10 11:54 Order name: Urine Dipstick-Ancillary (obtain specimen); Complete Time: 12:11 hj 08/10 11:54 Order name: Urine Test (obtain specimen); Complete Time: 12:11 hj 08/10 12:12 Order name: IV Start; Complete Time: 12:29 kb 08/10 13:56 Order name: CT Abd/Pelvis - W/Contrast; Complete Time: 14:38 kb Administered Medications: 12:39 Drug: NS 0.9% 1000 ml Route: IV; Rate: 1000 ml; Site: right antecubital; iw 15:17 Follow up: IV Status: Completed infusion rv 14:05 Drug: Phenergan 12.5 mg Route: IVP; Site: right antecubital; iw 15:17 Follow up: Response: No adverse reaction rv 15:16 Drug: TORadol 30 mg Route: IVP; Site: right antecubital; rv 15:16 Follow up: Response: Medication administered at discharge. rv Disposition: 17:01 Co-signature as Attending Physician, Bucky Packer MD. rn Disposition: 08/10/18 14:56 Discharged to Home. Impression: Cystitis. - Condition is Stable. - Discharge Instructions: Urinary Tract Infection, Adult, [id number]. - Prescriptions for cefpodoxime 100 mg Oral Tablet - take 1 tablet by ORAL route every 12 hours for 7 days take with food; 14 tablet. - Medication Reconciliation Form, Thank You Letter, Antibiotic Education, Prescription Opioid Use form. - Follow up: Emergency Department; When: As needed; Reason: Worsening of condition. Follow up: Private Physician; When: 2 - 3 days; Reason: Recheck today's complaints, Continuance of care, Re-evaluation by your physician. Signatures: Dispatcher [employer] EDNancy Wayne, EDITOR & CO FOUNDER-C EDITOR & CO FOUNDER-Ckb Rosette Alberto, Bucky Jarquin RN, MD MD rn Joaquin, Henry, RN RN hj Vicente, Ronaldo, RN RN rv Corrections: (The following items were deleted from the chart) 15:19 14:56 08/10/2018 14:56 Discharged to Home. Impression: Cystitis. Condition is Stable. rv Forms are Medication Reconciliation Form, Thank You Letter, Antibiotic Education, Prescription Opioid Use. Follow up: Emergency Department; When: As needed; Reason: Worsening of condition. Follow up: Private Physician; When: 2 - 3 days; Reason: Recheck today's complaints, Continuance of care, Re-evaluation by your physician. kb
[2018-08-10] MEDS ORDERED: KETOROLAC 30 MG/ML INJ ONE (15:18)
[2018-08-10 17:14] LABS: Urine Blood 1+ (NEG); Urine Glucose TRACE (NEG); Urine Protein 1+ (NEG)
== END 2018-08-10 15:19 | disposition home or self-care (01) ==
LOC: ER 11:23
DX: N30.91 Cystitis, unspecified with hematuria (principal)
CPT/HCPCS: 36415; 74177; 80048; 81003; 81015; 81025; 85025; 87086; 87088; 96361; 96374; 96375; 99284; J7030; Q9967

== ENCOUNTER 2018-11-25 16:06 | Inpatient (IN) | payer OTHER ==
--- OUTSIDE RECORDS SUMMARY | 2018-11-25 16:21 | XMS REPORT | Continuity of Care Document ---
[...] 25 mg=1 supp, Active [facility] Hydrochloride 25 LA, Q6H, PRN 016 [place] MG Rectal Nausea [...] Range BLOOD BANK ABO/Rh O POS 04/01 [place] [id number] 04/01 GY mIU/mL [facility] HEMATOLOGY Eosinophils # 0.1 K/CMM 0.0 - 0.5 04/01 [facility] HEMATOLOGY Basophils # 0.0 K/CMM 0.0 - 0.2 04/01 [facility] HEMATOLOGY Monocytes # 0.8 K/CMM 0.0 - 0.8 04/01 [facility] HEMATOLOGY Segs-Bands # 6.3 K/CMM 1.5 - 8.1 04/01 [facility] HEMATOLOGY Lymphocytes # 2.8 K/CMM 1.0 - 5.5 04/01 [facility] HEMATOLOGY Eosinophils 1.4 % 0.0 - 4.0 04/01 [facility] HEMATOLOGY Basophils 0.3 % 0.0 - 1.0 04/01 [facility] HEMATOLOGY Lymphocytes 27.4 % 20.0 - 04/01 MH 40.0 [facility] HEMATOLOGY Monocytes 8.0 % 2.0 - 12.0 04/01 [facility] HEMATOLOGY Segs 62.9 % 45.0 - 08 MH 75.0 [facility] HEMATOLOGY Hgb 11.7 g/dL 12.0 - 04/01 16.0 [facility] HEMATOLOGY Hct 35.9 % 36.0 - 04/01 48.0 [facility] HEMATOLOGY WBC 10.1 K/CMM 3.7 - 10.4 04/01 [facility] HEMATOLOGY RBC 3.99 M/CMM 4.20 - 04/01 5.40 [facility] HEMATOLOGY MCV 90.0 fL 80.0 - 04/01 98.0 /2015 [facility] HEMATOLOGY MCH 29.3 pg 27.0 - 04/01 31.0 /2015 [facility] HEMATOLOGY MCHC 32.6 g/dL 32.0 - 04/01 36.0 /2015 [facility] HEMATOLOGY RDW 13.6 % 11.5 - 04/01 14.5 [facility] HEMATOLOGY MPV 7.1 fL 7.4 - 10.4 04/01 [facility] HEMATOLOGY Platelet 322 K/CMM 133 - 450 04/01 [facility] URINE AND UA Bili Negative Negative 04/01 STOOL [facility] *NA* [place] (03/31/16 7:46 PM) URINE AND UA 0.2 EU/dL 0.1 - 1.0 04/01 STOOL Urobilinogen Leon URINE AND UA Nitrite Negative Negative 04/01 [...] pH 6.0 5.0 - 8.0 04/01 STOOL [facility] URINE AND UA Protein Negative Negative 04/01 STOOL [facility] (03/31/16 7:46 PM) [place] URINE AND UA Ketones Negative Negative 04/01 STOOL [facility] *NA* [facility] (03/31/16 7:46 PM) URINE AND UA Spec Grav 1.025 <=1.030 04/01 STOOL [facility] URINE AND UA Turbidity Slight Cloudy Clear 04/01 STOOL [facility] (03/31/16 7:46 PM) [place] URINE AND UA Color Yellow Yellow 04/01 STOOL [facility] *NA* [place] (03/31/16 7:46 PM) URINE AND UA Mucus Few /LPF None Seen 04/01 STOOL /LPF [facility] URINE AND UA Bacteria Moderate None Seen 04/01 STOOL /HPF /HPF Leon URINE AND UA RBC 0-2 /HPF 0 - 2 04/01 STOOL [facility] URINE AND UA WBC 0-2 /HPF None Seen 04/01 STOOL /HPF /2015 [facility] URINE AND Micro? Performed 04/01 [facility] (03/31/16 7:46 PM) [place] URINE AND UA Sq Epi Few /LPF Few /LPF 04/01 STOOL Leon Preg < Preg < 14wks EXAM: 03/31 [...] HEMATOLOGY D-Dimer 0.30 ug/mL 03/18 FEU /2015 [place] [id number] 03/18 GY mIU/mL /2015 [facility] CHEM PANEL eGFR 139 03/18 Result mL/min/1.73 /2016 Comment: The Sugar eGFR is Land calculated using the modified Maya equation 0.413 x Height (cm) /Serum Creatinine (mg/dL). CHEM PANEL AST 12 unit/L 0 - 37 03/18 [facility] CHEM PANEL Total Protein 7.0 g/dL 6.4 - 8.4 03/18 [facility] CHEM PANEL Albumin Lvl 3.6 g/dL 3.5 - 5.0 03/18 [facility] CHEM PANEL Calcium Lvl 8.1 mg/dL 8.5 - 10.5 03/18 [facility] CHEM PANEL ALT 16 unit/L 0 - 65 03/18 [facility] CHEM PANEL Bili Total 0.2 mg/dL 0.2 - 1.3 03/18 [facility] CHEM PANEL Alk Phos 61 unit/L 39 - 136 03/18 [facility] CHEM PANEL CO2 27 meq/L 24 - 32 03/18 [facility] CHEM PANEL Chloride Lvl 105 meq/L 95 - 109 03/18 [facility] CHEM PANEL Glucose Lvl 75 mg/dL 70 - 99 03/18 [facility] CHEM PANEL BUN 7 mg/dL 7 - 22 03/18 [facility] CHEM PANEL Creatinine 0.48 mg/dL 0.50 - 03/18 MH Lvl 1.40 /2015 [facility] CHEM PANEL Potassium Lvl 3.8 meq/L 3.5 - 5.1 03/18 [facility] CHEM PANEL Sodium Lvl 140 meq/L 135 - 145 03/18 [facility] CHEM PANEL A/G Ratio 1.1 0.7 - 1.6 03/18 [facility] CHEM PANEL Globulin 3.4 g/dL 2.0 - 4.0 03/18 [facility] CHEM PANEL B/C Ratio 15 6 - 25 03/18 [facility] CHEM PANEL AGAP 11.8 meq/L 10.0 - 03/18 MH 20.0 [facility] CHEM PANEL Magnesium Lvl 2.0 mg/dL 1.8 - 2.4 03/18 [facility] CHEM PANEL Phosphorus 4.5 mg/dL 2.5 - 4.5 03/18 [facility] HEMATOLOGY Lymphocytes # 2.4 K/CMM 1.0 - 5.5 03/18 [facility] HEMATOLOGY Monocytes 7.7 % 2.0 - 12.0 03/18 [facility] HEMATOLOGY Segs 67.9 % 45.0 - 07/18 MH 75.0 /2015 [facility] HEMATOLOGY Lymphocytes 23.3 % 20.0 - 03/18 MH 40.0 /2015 [facility] HEMATOLOGY Eosinophils 0.9 % 0.0 - 4.0 03/18 MH [facility] HEMATOLOGY Basophils 0.2 % 0.0 - 1.0 03/18 MH [facility] HEMATOLOGY Segs-Bands # 6.9 K/CMM 1.5 - 8.1 03/18 [facility] HEMATOLOGY Monocytes # 0.8 K/CMM 0.0 - 0.8 03/18 MH [facility] HEMATOLOGY Eosinophils # 0.1 K/CMM 0.0 - 0.5 03/18 [facility] HEMATOLOGY Basophils # 0.0 K/CMM 0.0 - 0.2 03/18 [facility] HEMATOLOGY RDW 13.6 % 11.5 - 03/18 MH 14.5 [facility] HEMATOLOGY Platelet 316 K/CMM 133 - 450 03/18 [facility] HEMATOLOGY MPV 7.5 fL 7.4 - 10.4 03/18 [facility] HEMATOLOGY MCV 88.2 fL 80.0 - 03/18 MH 98.0 /2015 [facility] HEMATOLOGY MCH 29.8 pg 27.0 - 03/18 MH 31.0 [facility] HEMATOLOGY MCHC 33.8 g/dL 32.0 - 03/18 MH 36.0 /2015 [facility] HEMATOLOGY Hct 34.7 % 36.0 - 03/18 MH 48.0 /2015 [facility] HEMATOLOGY RBC 3.94 M/CMM 4.20 - 03/18 MH 5.40 /2015 [facility] HEMATOLOGY Hgb 11.7 g/dL 12.0 - 03/18 MH 16.0 [facility] HEMATOLOGY WBC 10.2 K/CMM 3.7 - 10.4 03/18 Leon URINE AND UA Bacteria Few /HPF None Seen 03/18 MH STOOL /HPF /2015 Leon URINE AND UA RBC 0-2 /HPF 0 - 2 03/18 MH STOOL /2016 Leon URINE AND UA Amorph Few /HPF None Seen 03/18 STOOL Leslie /HPF /2015 Leon URINE AND UA Spec Grav 1.020 <=1.030 03/18 STOOL /2015 Leon URINE AND UA 0.2 EU/dL 0.1 - 1.0 03/18 STOOL Urobilinogen /2015 Leon URINE AND UA Blood Trace Negative 03/18 STOOL [facility] *ABN* [place] (03/18/16 1:37 PM) URINE AND UA Bili Negative Negative 03/18 [facility] *NA* [place] (03/18/16 1:37 PM) URINE AND UA Glucose Negative Negative 03/18 STOOL [facility] (03/18/16 1:37 PM) [place] URINE AND UA Protein Negative Negative 03/18 STOOL [facility] (03/18/16 1:37 PM) [place] URINE AND UA pH 7.0 5.0 - 8.0 03/18 STOOL Leon URINE AND UA Ketones Negative Negative 03/18 [facility] *NA* [facility] (03/18/16 1:37 PM) URINE AND UA Turbidity Slight Cloudy Clear 03/18 [facility] (03/18/16 1:37 PM) [place] URINE AND UA Color Yellow Yellow 03/18 [facility] *NA* [facility] (03/18/16 1:37 PM) URINE AND UA Leuk Est Negative Negative 03/18 [facility] (03/18/16 1:37 PM) [place] URINE AND UA Nitrite Negative Negative 03/18 STOOL [facility] (03/18/16 1:37 PM) [place] URINE AND UA WBC 0-2 /HPF None Seen 03/18 /HPF Leon URINE AND UA Sq Epi Rare /LPF Few /LPF 03/18 Leon URINE CHEM U Preg Positive Negative 03/18 [facility] *ABN* [place] (03/18/16 1:37 PM) Preg < Preg < 14wks EXAM: 03/18 - 14wks sing sing gest w /2015 - [facility] gest w transvag/Dop Pelvic ultrasound. [facility] transvag/Do US p US Read by: Jose [...] Comments Source Respitory Rate 17 04/01/2016 MH [facility] Heart Rate 88 04/01/2016 MH [facility] Height 162.56 cm 03/31/2016 Leon BMI Calculated 22.83 03/31/2016 MH [facility] Weight 60.318 03/31/2016 MH [facility] Systolic (mm Hg) 131 03/31/2016 MH [facility] Diastolic (mm Hg) 69 03/31/2016 MH [facility] Heart Rate 87 03/31/2016 MH [facility] Respitory Rate 18 03/31/2016 Leon Temperature Oral (F) 97.4 F 03/31/2016 MH [facility] Systolic (mm Hg) 112 03/18/2016 MH [facility] Diastolic (mm Hg) 62 03/18/2016 MH [facility] Heart Rate 88 03/18/2016 MH [facility] Respitory Rate 20 03/18/2016 MH [facility] Temperature Oral (F) 98.2 F 03/18/2016 MH [facility] Weight 59.091 03/18/2016 Leon BMI Calculated 22.36 03/18/2016 MH [facility] Height 162.56 cm 03/18/2016 MH [facility] Temperature Oral (F) 98.2 F 03/18/2016 MH Leon Respitory Rate 20 03/18/2016 MH [facility] Heart Rate 92 03/18/2016 MH [facility] Systolic (mm Hg) 105 03/18/2016 Leon Diastolic (mm Hg) 66 03/18/2016 Leon Encounters Location Location Encounter Encounter Reason Attending ADM DC Status Source Details Type Number For Provider Date Date Visit [facility] [id number] Radha 03/18 03/18 [facility] /2015 [facility] [place] [id number] Crcharis Reynaga 03/31 04/01 [facility] /2015 [facility] Outpatient [id number] CAROLA-LILI 04/25 Active [facility] /2015 [facility] Outpatient [id number] CAROLA-LILI 05/23 Active [facility] /2016 [facility] Procedures Procedure Code Date Perfomer Comments Source
--- NOTE | 2018-11-25 17:11 | RAD REPORT ---
EXAM DESCRIPTION: CT - Head C Spine Mpr Wo Con - 11/25/2018 4:54 pm CLINICAL HISTORY: Head and neck injury status post fall. Head and neck pain . Seizure COMPARISON: None. TECHNIQUE: Computed axial tomography of the head and cervical spine was obtained. Sagittal and coronal reconstruction was performed. All CT scans are performed using dose optimization technique as appropriate and may include automated exposure control or mA/KV adjustment according to patient size. FINDINGS: An intracranial bleed is not seen. The ventricles are normal in caliber. An extra-axial fl uid collection is not noted.Fluid within the visualized sinuses and mastoids is not seen A cervical fracture is not visualized. No dislocation is noted. IMPRESSION: No acute intracranial abnormality is seen. A cervical fracture is not visualized. If the patient continues to have symptoms to suggest intracra nial /spinal cord pathology then MRI would be recommended
[2018-11-25 17:25] LABS: Barbiturates NEGATIVE (NEGATIVE); Benzodiazepines NEGATIVE (NEGATIVE); Cocaine NEGATIVE (NEGATIVE); METHAMPHETAM NEGATIVE (NEGATIVE); Methadone NEGATIVE (NEGATIVE); Opiates NEGATIVE (NEGATIVE); Phencyclidine NEGATIVE (NEGATIVE); THC Cannibis NEGATIVE (NEGATIVE)
[2018-11-25 17:29] LABS: Absolute Lymphocytes (CBC) 2.6 K/uL (0.7-4.9); Absolute Monocytes 0.5 K/uL (0.1-1.3); Absolute Neutrophil 3.7 K/uL (1.8-8.0); Basophils % 0.4 % (0-1.3); Eosinophils % 1.1 % (0-4.4); Hematocrit 36.8 % (36.0-45.0); Lymphocytes % 37.6 % (15.3-44.8); MPV 7.5 fL (7.6-11.3); Monocytes % 6.7 % (3.3-12.3); RBC Red Blood Cell Count 4.31 M/uL (3.86-4.86)
[2018-11-25 17:33] LABS: Protime INR 1.03
[2018-11-25 17:48] LABS: ALT/SGPT 16 U/L (12-78); AST/SGOT 10 U/L (15-37); Albumin 3.5 g/dL (3.4-5.0); Alkaline Phosphatase 67 U/L (45-117); BUN Blood Urea Nitrogen 7 mg/dL (7-18); Bicarbonate 28 mmol/L (21-32); Bilirubin Direct < 0.1 mg/dL (0-0.2); Bilirubin Total 0.4 mg/dL (0.2-1.0); Glucose Level 83 mg/dL (74-106); Potassium 3.8 mmol/L (3.5-5.1); Protein, Total 7.3 g/dL (6.4-8.2); Sodium Level 141 mmol/L (136-145)
[2018-11-25] MEDS ORDERED: LORazepam 2 MG/ML VIAL ONE ×3 (18:31→18:41)
[2018-11-25] MEDS ORDERED: NA CHLORIDE 0.9% 100 ML IV ONE (18:44)
[2018-11-25] MEDS ORDERED: NA CHLORIDE 0.9% 1,000 ML ONE (18:44)
[2018-11-25] MEDS ORDERED: LEVETIRACETAM 500 MG/5 ML VIAL IV ONE (18:44)
--- NOTE | 2018-11-25 20:04 | ER ---
Nurse's Notes [facility] Name: Jen Alberto Age: 18 yrs Sex: Female : 2000 Arrival Date: 11/25/2018 Time: 16:10 Bed 2 Private MD: Diagnosis: Epilepsy and recurrent seizures Presentation: 11/25 16:09 Presenting complaint: EMS states: Witnessed seizure at work, another seizure during hb transit to ED that lasted approx 1 minute. Distant hx of seizures. 16:10 Transition of care: patient was not received from another setting of care. Onset of pc1 symptoms was November 25, 2018. Risk Assessment: Do you want to hurt yourself or someone else? Patient reports no desire to harm self or others. Initial Sepsis Screen: Does the patient meet any 2 criteria? No. Patient's initial sepsis screen is negative. Does the patient have a suspected source of infection? No. Patient's initial sepsis screen is negative. Care prior to arrival: Medication(s) given: Ativan IV initiated. 18 GA, in the left antecubital area. Activity prior to arrival: seizure. 16:10 Method Of Arrival: EMS: [facility] pc1 16:11 Acuity: HALLEY 3 hb Triage Assessment: 16:13 General: Appears in no apparent distress. Behavior is calm, cooperative. Pain: Denies pc1 pain. EENT: No signs and/or symptoms were reported regarding the EENT system. Neuro: Level of Consciousness is awake, alert, obeys commands, Oriented to person, place, time, situation, Thrill Performer are equal bilaterally Moves all extremities. Full function Speech is normal, Seizure activity reported prior to arrival. Type of seizure: tonic-clonic seizure. Seizure lasted approximately 10 minutes. Cardiovascular: Capillary refill < 3 seconds Patient's skin is warm and dry. Pulses are 2+ in right radial artery and left radial artery. Respiratory: Airway is patent Respiratory effort is even, unlabored, Respiratory pattern is regular, symmetrical, Breath sounds are clear bilaterally. GI: No signs and/or symptoms were reported involving the gastrointestinal system. : No signs and/or symptoms were reported regarding the genitourinary system. Derm: Skin is intact, is healthy with good turgor, Skin is pink, warm \T\ dry. normal, Skin temperature is warm. Musculoskeletal: Circulation, motion, and sensation intact. Capillary refill < 3 seconds, Range of motion: intact in all extremities. 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 - Social history:: Smoking status: Patient/guardian denies using tobacco. - Ebola Screening: : Patient negative for fever greater than or equal to 101.5 degrees Fahrenheit, and additional compatible Ebola Virus Disease symptoms Patient denies exposure to infectious person Patient denies travel to an Ebola-affected area in the 21 days before illness onset No symptoms or risks identified at this time. Screenin:17 Abuse screen: Denies threats or abuse. Denies injuries from another. Nutritional hb screening: No deficits noted. Tuberculosis screening: No symptoms or risk factors identified. Fall Risk None identified. Assessment: 16:15 General: Appears in no apparent distress. Behavior is calm, cooperative. Pain: Denies hb pain. Neuro: Level of Consciousness is awake, alert, obeys commands, Oriented to person, place, time, situation. Cardiovascular: Capillary refill < 3 seconds Patient's skin is warm and dry. Respiratory: Airway is patent Respiratory effort is even, unlabored, Respiratory pattern is regular, symmetrical, Breath sounds are clear bilaterally. GI: No signs and/or symptoms were reported involving the gastrointestinal system. : No signs and/or symptoms were reported regarding the genitourinary system. EENT: No signs and/or symptoms were reported regarding the EENT system. Derm: Skin is intact, is healthy with good turgor, Skin is pink, warm \T\ dry. Musculoskeletal: No signs and/or symptoms reported regarding the musculoskeletal system. 17:00 Reassessment: Patient appears in no apparent distress at this time. No changes from hb previously documented assessment. Patient and/or family updated on plan of care and expected duration. Pain level reassessed. Patient is alert, oriented x 3, equal unlabored respirations, skin warm/dry/pink. 17:51 Reassessment: Patient appears in no apparent distress at this time. No changes from hb previously documented assessment. Patient and/or family updated on plan of care and expected duration. Pain level reassessed. Patient is alert, oriented x 3, equal unlabored respirations, skin warm/dry/pink. 18:22 Reassessment: Seizure activity noted, Dr. Daly at bedside Ativan administered as hb ordered. 19:34 Reassessment: Patient appears in no apparent distress at this time. Patient and/or jd3 family updated on plan of care and expected duration. Pain level reassessed. pt resting in bed, currently drowsy. awaiting further orders from provider. 20:01 Reassessment: provider at bedside. jd3 20:11 Reassessment: Patient appears in no apparent distress at this time. Patient and/or jd3 family updated on plan of care and expected duration. Pain level reassessed. pt resting in bed with eyes closed, even and unlabored respirations, no distress noted at this laura, awaiting admission orders. Vital Signs: 16:13 BP 113 / 73; Pulse 92; Resp 16; Temp 99.1(O); Pulse Ox 100% on R/A; Pain 0/10; hb 17:00 BP 117 / 77; Pulse 105; Resp 17; Pulse Ox 100% on R/A; hb 18:20 BP 147 / 95; Pulse 113; Resp 26; Pulse Ox 97% on Non-rebreather mask; hb 18:35 BP 105 / 78; Pulse 97; Resp 16; Pulse Ox 100% on Non-rebreather mask; hb 19:34 BP 92 / 53; Pulse 78; Resp 15 S; Pulse Ox 99% on R/A; jd3 20:10 BP 94 / 68; Pulse 83; Resp 16 S; Pulse Ox 100% on R/A; jd3 ED Course: 16:10 Patient arrived in ED. pc1 16:13 Ria Marrero, MARCELO is Primary Nurse. hb 16:13 Triage completed. hb 16:14 Justin Roche PA is PHCP. cp 16:14 James Daly MD is Attending Physician. cp 16:14 Arm band placed on. hb 16:18 Patient has correct armband on for positive identification. Bed in low position. Call hb light in reach. Side rails up X2. Seizure precautions initiated. 16:[address] via stretcher. vm2 16:50 Urine collected: bedpan, clear. dh3 16:52 CT completed. Patient tolerated procedure well. Patient moved back from CT. vm2 16:54 CT Head C Spine In Process Unspecified. EDMS 17:15 Initial lab(s) drawn, by me, sent to lab. 3 20:03 Jeremias Bennett MD is Hospitalizing Provider. cp Administered Medications: 18:22 Drug: Ativan 2 mg Route: IVP; Site: left antecubital; hb 18:32 Drug: Ativan 2 mg Route: IVP; Site: right antecubital; hb 18:37 Drug: Keppra 1000 mg Route: IV; Rate: calculated rate; Site: left antecubital; ph 19:42 Drug: NS 0.9% 1000 ml Route: IV; Rate: 1 bolus; Site: left antecubital; jd3 Outcome: 20:04 Decision to Hospitalize by Provider. cp 20:51 Patient left the ED. aa1 Signatures: Dispatcher [employer] EDMS Ksenia Garza RN RN aa1 Jada Merrill RN RN ph Justin Roche PA PA cp Ria Marrero RN RN [facility] Ines Simon [facility] Kamar Price RN RN jd3 Cantu, Patrick pc1 Corrections: (The following items were deleted from the chart) 16:17 16:10 Presenting complaint: Patient states: of seizures pc1 hb 20:01 19:34 Reassessment: Patient appears in no apparent distress at this time. Patient jd3 and/or family updated on plan of care and expected duration. Pain level reassessed. Patient is alert, oriented x 3, equal unlabored respirations, skin warm/dry/pink. pt resting in bed, currently drowsy. awaiting further orders from provider. jd3
--- NOTE | 2018-11-25 20:04 | EDPHYS ---
Physician Documentation [facility] Name: Jen Alberto Age: 18 yrs Sex: Female : 2000 Arrival Date: 11/25/2018 Time: 16:10 Bed 2 Private MD: ED Physician James Daly HPI: 11/25 16:40 This 18 yrs old Female presents to ER via EMS with complaints of Seizure. cp 16:40 The patient presents with a history of multiple seizures, a total of 2, that last 1 cp minute(s), the episode(s) was witnessed, by co-worker(s), by EMS personnel. Character of seizure(s): Loss of consciousness: the patient experienced loss of consciousness, brief, Motor activity: generalized, shaking all over, Incontinence: none. Seizure onset: today. Seizure Hx: Original onset: as adolescent, Last seizure: The patient's last seizure "not sure", years ago, Seizure medications: none. Associated injury: Neck: tenderness. EMS care: Ativan, 2 mg(s), with resolution of the seizure. Current symptoms: headache, general weakness. 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 - Social history:: Smoking status: Patient/guardian denies using tobacco. - Ebola Screening: : Patient negative for fever greater than or equal to 101.5 degrees Fahrenheit, and additional compatible Ebola Virus Disease symptoms Patient denies exposure to infectious person Patient denies travel to an Ebola-affected area in the 21 days before illness onset No symptoms or risks identified at this time. ROS: 16:45 Constitutional: Negative for body aches, chills, fever, poor PO intake. cp 16:45 Eyes: Negative for injury, pain, redness, and discharge. cp 16:45 ENT: Negative for drainage from ear(s), ear pain, sore throat, difficulty swallowing, difficulty handling secretions. 16:45 Cardiovascular: Negative for chest pain, edema, palpitations. 16:45 Respiratory: Negative for cough, shortness of breath, wheezing. 16:45 Abdomen/GI: Negative for abdominal pain, vomiting, diarrhea, constipation. 16:45 Skin: Negative for cellulitis, rash. 16:45 Neuro: Positive for headache, seizure activity, weakness, Negative for altered mental status. 16:45 All other systems are negative. Exam: 16:45 ECG was reviewed by the Attending Physician. cp 16:48 Constitutional: The patient appears in no acute distress, alert, awake, cp non-diaphoretic, non-toxic, well developed, well nourished. 16:48 Head/Face: Normocephalic, atraumatic. Eyes: Pupils equal round and reactive to light, cp extra-ocular motions intact. Lids and lashes normal. Conjunctiva and sclera are non-icteric and not injected. Cornea within normal limits. Periorbital areas with no swelling, redness, or edema. ENT: Nares patent. No nasal discharge, no septal abnormalities noted. Tympanic membranes are normal and external auditory canals are clear. Oropharynx with no redness, swelling, or masses, exudates, or evidence of obstruction, uvula midline. Mucous membranes moist. 16:48 Neck: External neck: tenderness, that is mild, of the occiput, left mid cervical area and right mid cervical area, C-spine: vertebral tenderness, is not appreciated, crepitus, that is mild. 16:48 Chest/axilla: Inspection: normal, Palpation: is normal, no crepitus, no tenderness. 16:48 Cardiovascular: Rate: normal, Rhythm: regular, Pulses: Pulses are 2+ in right radial artery and left radial artery. Heart sounds: murmur, not appreciated, Edema: is not appreciated, JVD: is not appreciated. 16:48 Respiratory: the patient does not display signs of respiratory distress, Respirations: normal, no use of accessory muscles, no retractions, no splinting, no tachypnea, labored breathing, is not present, Breath sounds: are clear throughout, no decreased breath sounds, no stridor, no wheezing. 16:48 Abdomen/GI: Inspection: abdomen appears normal, Bowel sounds: active, all quadrants, Palpation: abdomen is soft and non-tender, in all quadrants. 16:48 Musculoskeletal/extremity: Exam is negative for decreased range of motion, deformity, injury. 16:48 Skin: cellulitis, is not appreciated, no rash present. 16:48 Neuro: Orientation: to person, place \\T\\ time. Mentation: is normal, Cerebellar function: is grossly normal, Motor: moves all fours, general weakness w/o focal deficits, Sensation: is normal. Vital Signs: 16:13 BP 113 / 73; Pulse 92; Resp 16; Temp 99.1(O); Pulse Ox 100% on R/A; Pain 0/10; hb 17:00 BP 117 / 77; Pulse 105; Resp 17; Pulse Ox 100% on R/A; hb 18:20 BP 147 / 95; Pulse 113; Resp 26; Pulse Ox 97% on Non-rebreather mask; hb 18:35 BP 105 / 78; Pulse 97; Resp 16; Pulse Ox 100% on Non-rebreather mask; hb 19:34 BP 92 / 53; Pulse 78; Resp 15 S; Pulse Ox 99% on R/A; jd3 20:10 BP 94 / 68; Pulse 83; Resp 16 S; Pulse Ox 100% on R/A; jd3 MDM: 16:15 Patient medically screened. cp 19:40 Data reviewed: vital signs, nurses notes, lab test result(s), EKG, radiologic studies, cp CT scan, I have discussed the patient's presentation/case with the attending Emergency Department Physician; and as a result, I will admit patient. 19:40 Test interpretation: by ED physician or midlevel provider: ECG. Response to treatment: cp the patient's symptoms have markedly improved after treatment. 19:41 Physician consultation: Jacobo Kaba MD was called at 19:41, was contacted at 19:41, regarding consult, patient's condition, would like further tests performed, MRI of brain with epilepsy protocol and EEG, would like medications started, Keppra 500 mg bid. 20:05 Physician consultation: Jeremias Bennett MD was contacted at 20:05, regarding admission, cp to the telemetry unit. patient's condition. 11/25 16:36 Order name: Acetaminophen; Complete Time: 19:38 cp 11/25 16:36 Order name: Basic Metabolic Panel; Complete Time: 19:38 cp 11/25 19:38 Interpretation: Normal except: CL 108; CA 8.4. cp 11/25 16:36 Order name: CBC with Diff; Complete Time: 17:48 cp 11/25 17:48 Interpretation: Normal except: MPV 7.5. cp 11/25 16:36 Order name: ETOH Level; Complete Time: 17:48 11/25 17:48 Interpretation: Reviewed. 11/25 16:36 Order name: Hepatic Function; Complete Time: 19:38 11/25 16:36 Order name: PT-INR; Complete Time: 17:48 cp 11/25 17:48 Interpretation: Within normal limits. 11/25 16:36 Order name: Ptt, Activated; Complete Time: 17:48 11/25 17:48 Interpretation: Within normal limits: PTT 33.0. 11/25 16:36 Order name: Salicylate; Complete Time: 19:38 11/25 16:36 Order name: Urine Drug Screen; Complete Time: 17:29 11/25 17:29 Interpretation: Reviewed. 11/25 16:55 Order name: Urine Dipstick--Ancillary (enter results) kj1 11/25 16:58 Order name: Test, Serum; Complete Time: 19:38 dh3 11/25 20:27 Order name: CBC with Automated Diff [facility] 11/25 20:27 Order name: CBC with Automated Diff [facility] 11/25 20:27 Order name: Comprehensive Metabolic Panel [facility] 11/25 16:36 Order name: Urine Test (obtain specimen); Complete Time: 16:52 11/25 16:36 Order name: EKG; Complete Time: 16:37 11/25 16:36 Order name: EKG - Nurse/Tech; Complete Time: 17:20 11/25 16:36 Order name: CT Head C Spine; Complete Time: 17:29 11/25 17:30 Interpretation: Reviewed report. 11/25 20:27 Order name: CONS Pharmacy Consult [facility] 11/25 20:27 Order name: CONS Physician Consult [facility] 11/25 20:27 Order name: Regular [facility] 11/25 20:27 Order name: EEG Request [facility] 11/25 20:27 Order name: EEG Request [facility] 11/25 20:27 Order name: Comprehensive Metabolic Panel [facility] 11/25 20:27 Order name: Brain Wo Cont [facility] 11/25 20:27 Order name: Brain Wo Cont [facility] 11/25 16:36 Order name: IV Saline Lock; Complete Time: 17:20 11/25 16:36 Order name: Labs collected and sent; Complete Time: 17:20 11/25 16:36 Order name: Urine Dipstick-Ancillary (obtain specimen); Complete Time: 16:52 cp 11/25 16:36 Order name: C-Collar; Complete Time: 18:55 cp EC:45 Rate is 96 beats/min. Rhythm is regular. MO interval is normal. QRS interval is normal. cp QT interval is normal. Interpreted by me. Reviewed by me. Administered Medications: 18:22 Drug: Ativan 2 mg Route: IVP; Site: left antecubital; hb 18:32 Drug: Ativan 2 mg Route: IVP; Site: right antecubital; hb 18:37 Drug: Keppra 1000 mg Route: IV; Rate: calculated rate; Site: left antecubital; ph 19:42 Drug: NS 0.9% 1000 ml Route: IV; Rate: 1 bolus; Site: left antecubital; jd3 Disposition: 11/26 07:29 Co-signature as Attending Physician, James Daly MD I agree with the assessment and wa plan of care. Disposition: 11/25/18 20:04 Hospitalization ordered by Jeremias Bennett for Observation. Preliminary diagnosis is Epilepsy and recurrent seizures. - Bed requested for Telemetry/MedSurg (observation). - Status is Observation. aa1 - Condition is Stable. - Problem is new. - Symptoms have improved. UTI on Admission? No Signatures: Dispatcher [employer] EDKsenia Ley RN RN aa1 Farhana Donahue RN RN ss Hall, Patricia, RN RN ph Page, Corey, PA PA cp Ria Marrero RN RN James Daly MD MD wa Davies, Jonathon, RN RN jd3 Rosales Baker RN RN ja1 Gamaliel Heredia Corrections: (The following items were deleted from the chart) 11/25 19:38 19:38 Normal except: CL 108. cp cp 20:31 20:04 Hospitalization Ordered by Jeremias Bennett MD for Observation. Preliminary ja1 diagnosis is Epilepsy and recurrent seizures. Bed requested for Telemetry/MedSurg (observation). Status is Observation. Condition is Stable. Problem is new. Symptoms have improved. UTI on Admission? No. cp 20:51 20:31 11/25/2018 20:04 Hospitalization Ordered by Jeremias Bennett MD for Observation. aa1 Preliminary diagnosis is Epilepsy and recurrent seizures. Bed requested for Telemetry/MedSurg (observation). Status is Observation. Condition is Stable. Problem is new. Symptoms have improved. UTI on Admission? No. ja1
[2018-11-25] MEDS ORDERED: ACETAMINOPHEN 500 MG TAB PO PRN (20:18)
--- NOTE | 2018-11-25 20:18 | EKG ---
Test Date: 2018-11-25 Test Time: 16:37:41 911 Emergency Dispatcher: RAMOS MEASUREMENT RESULTS: Intervals: Rate: 96 MS: 132 QRSD: 86 QT: 350 QTc: 442 [place]: P: 50 MS: 132 QRS: 78 T: 49 INTERPRETIVE STATEMENTS: Normal sinus rhythm Normal ECG No previous ECG available for comparison Electronically Signed On 11-25-18 20:17:46 CDT by Fernando Gregory
[2018-11-25 20:22] LABS: Urine Blood TRACE (NEG); Urine Glucose NEGATIVE (NEG); Urine Protein NEGATIVE (NEG); Urine Specific Gravity <1.005 (1.005-1.030); Urine pH 5.5 (5.0-7.0)
[2018-11-25] MEDS: NA CHLORIDE 0.9% 1,000 ML IV SCH (21:44)
[2018-11-25 22:14] VITALS: BMI 23.1
[2018-11-26] MEDS: ONDANSETRON 4 MG/2 ML VIAL IV PRN ×2 (01:33→09:29)
[2018-11-26 04:22] LABS: Absolute Lymphocytes (CBC) 2.4 K/uL (0.7-4.9); Absolute Monocytes 0.6 K/uL (0.1-1.3); Absolute Neutrophil 4.6 K/uL (1.8-8.0); Basophils % 0.3 % (0-1.3); Eosinophils % 1.2 % (0-4.4); Lymphocytes % 30.8 % (15.3-44.8); MPV 7.6 fL (7.6-11.3); Monocytes % 7.9 % (3.3-12.3); RBC Red Blood Cell Count 3.87 M/uL (3.86-4.86)
[2018-11-26 04:33] LABS: ALT/SGPT 11 U/L (12-78); AST/SGOT 10 U/L (15-37); Albumin 2.9 g/dL (3.4-5.0); Alkaline Phosphatase 59 U/L (45-117); BUN Blood Urea Nitrogen 6 mg/dL (7-18); Bicarbonate 25 mmol/L (21-32); Bilirubin Total 0.4 mg/dL (0.2-1.0); Glucose Level 86 mg/dL (74-106); Potassium 3.9 mmol/L (3.5-5.1); Protein, Total 6.2 g/dL (6.4-8.2); Sodium Level 141 mmol/L (136-145)
[2018-11-26] MEDS: levETIRAcetam 500 MG in NA CHLORIDE 0.9% 100 ML IV SCH ×2 (06:00→17:28)
[2018-11-26] MEDS ORDERED: LEVETIRACETAM 500 MG/5 ML VIAL IV ONE (06:00)
[2018-11-26] MEDS ORDERED: NA CHLORIDE 0.9% 100 ML IV ONE (06:16)
[2018-11-26] MEDS: NA CHLORIDE 0.9% 1,000 ML IV SCH ×3 (09:30→20:15)
--- NOTE | 2018-11-26 09:34 | P.HP ---
Certification for Inpatient Patient admitted to: Observation With expected LOS: <2 Midnights Patient will require the following post-hospital care: None Practitioner: I am a practitioner with admitting privileges, knowledge of patient current condition, hospital course, and medical plan of care. Services: Services provided to patient in accordance with Admission requirements found in Title 42 Section 412.3 of the Code of Federal Regulations Patient History Date of Service: 11/25/18 Reason for admission: Seizures History of Present Illness: Patient is a 18-year-old female came to the hospital with seizures while at work. Patient passed out and was found on the ground by her colleagues. She said the next thing she remembers was being in the ambulance. She was brought here for further evaluation. She did have a couple of additional seizures while in the emergency room. She will be admitted for further evaluation. Allergies No Known Allergies Allergy (Unverified 11/24/11 20:46) Home Medications: Etonogestrel/Ethinyl Estradiol [Nuvaring Vaginal Ring] 1 donna VAG SEECOM - Past Medical/Surgical History Has patient received pneumonia vaccine in the past: No Diabetic: No -: h pylori -: PCOS -: Seizure disorder Past Surgical History: Patient denies surgical history - Family History Mother Medical History: Seizures, Kidney disease Notes: spina bifida, muscle atrophy Father History Unknown: Yes - Social History Smoking Status: Never smoker Alcohol use: No CD- Drugs: No Caffeine use: Yes Place of Residence: Home Review of Systems 10-point ROS is otherwise unremarkable Physical Examination - Vital Signs Temperature: 97.9 F Blood Pressure: 99/64 Pulse: 90 Respirations: 18 Pulse Ox (%): 99 - Physical Exam General: Alert, In no apparent distress, Oriented x3 HEENT: Atraumatic, PERRLA, Mucous membr. moist/pink, EOMI, Sclerae nonicteric Neck: Supple, 2+ carotid pulse no bruit, No LAD, Without JVD or thyroid abnormality Respiratory: Clear to auscultation bilaterally, Normal air movement Cardiovascular: Regular rate/rhythm, Normal S1 S2 Gastrointestinal: Normal bowel sounds, Soft and benign, Non-distended, No tenderness Musculoskeletal: No clubbing, No swelling, No tenderness Integumentary: No rashes Neurological: Normal gait, Normal speech, Normal strength at 5/5 x4 extr, Normal tone, Sensation intact, Cranial nerves 3-12 intact, Normal affect Lymphatics: No axilla or inguinal lymphadenopathy - Studies Laboratory Data (last 24 hrs) 11/25/18 17:15: PT 12.1, INR 1.03, APTT 33.0 11/25/18 17:15: WBC 6.8, Hgb 12.1, Hct 36.8, Plt Count 313 11/25/18 17:15: Sodium 141, Potassium 3.8, BUN 7, Creatinine 0.65, Glucose 83, Total Bilirubin 0.4, AST 10 L, ALT 16, Alkaline Phosphatase 67 Assessment & Plan - Problems (Diagnosis) (1) Seizure disorder Current Visit: Yes Status: Acute - Plan Plan: 1. Anti epileptics 2. IV hydration 3. EEG 4. MRI of the brain 5. Neurology consultation 6. GI and DVT prophylaxis - Advance Directives Does patient have a Living Will: No Does patient have a Durable POA for Healthcare: No - Code Status/Comfort Care Code Status Assessed: Yes Code Status: Full Code Critical Care: No Time Spent Managing PTS Care (In Minutes): 45
[2018-11-26 09:53] LABS: RPR Titer ND
--- NOTE | 2018-11-26 11:49 | P.PN ---
Subjective Date of Service: 11/26/18 Chief Complaint: Seizures Patient seen and examined at bedside with RN. Chart reviewed. Case discussed with neurology. Patient this morning had an episode of seizure-like activity. Patient stated that she felt like she used was feeling different called the nurse when the nurse arrived in the room patient was having that seemed to make tonic-clonic seizure. Patient did not have any postictal phase. Did not have any adverse reaction. Seizure did stopped itself without any intervention Review of Systems 10-point ROS is otherwise unremarkable Physical Examination - Vital Signs Temperature: 97.9 F Blood Pressure: 99/64 Pulse: 90 Respirations: 18 Pulse Ox (%): 99 - Physical Exam General: Alert, In no apparent distress HEENT: Atraumatic, PERRLA, EOMI Neck: Supple, JVD not distended Respiratory: Clear to auscultation bilaterally, Normal air movement Cardiovascular: Regular rate/rhythm, Normal S1 S2 Gastrointestinal: Normal bowel sounds, No tenderness Musculoskeletal: No tenderness Integumentary: No rashes Neurological: Normal speech, Normal tone, Normal affect Lymphatics: No axilla or inguinal lymphadenopathy - Studies Laboratory Data (last 24 hrs) 11/25/18 17:15: PT 12.1, INR 1.03, APTT 33.0 11/25/18 17:15: WBC 6.8, Hgb 12.1, Hct 36.8, Plt Count 313 11/25/18 17:15: Sodium 141, Potassium 3.8, BUN 7, Creatinine 0.65, Glucose 83, Total Bilirubin 0.4, AST 10 L, ALT 16, Alkaline Phosphatase 67 Medications List Reviewed: Yes Assessment And Plan - Current Problems (Diagnosis) (1) Seizure disorder Current Visit: Yes Status: Acute Plan: Patient with past history of seizure as a child. Patient has been seizure-free ever since she was 1 years old. Patient states that she had been diagnosed with pseudoseizures and they were not able to find any cause for the seizure when she was young -currently started on Keppra IV -lab work, EEG, MRI pending at this time -neurology consulted. Awaiting recommendations. -will follow up with results (2) UTI (urinary tract infection) Current Visit: Yes Status: Acute Plan: Acute cystitis with low-grade fever and chills -urine culture pending at this time -started on IV Rocephin Qualifiers: Urinary tract infection type: acute cystitis Discharge Plan: Home Plan to discharge in: 48 Hours - Code Status/Comfort Care Code Status Assessed: Yes Critical Care: No
--- NOTE | 2018-11-26 13:05 | RAD REPORT ---
EXAM DESCRIPTION: MRI - Brain Wo Cont - 11/26/2018 12:48 pm CLINICAL HISTORY: Seizure COMPARISON: November 25, [address] TECHNIQUE: Axial, sagittal, and coronal magnetic images of the brain were obtained. Contrast was not requested FINDINGS: No abnormal signal is present within the brain. Hippocampal gyri normal caliber and signal Diffusion-weighted/ADC mapping does not reveal evidence of acute infarction. The ventricles are normal caliber. An extra-axial fluid collection is not present Fluid within the sinuses/mastoids is not noted IMPRESSION: Unremarkable unenhanced brain MRI
[2018-11-26] MEDS: CEFTRIAXONE/SWI 1gm 1 GM/10 ML SYR IV SCH (13:51)
[2018-11-26] MEDS ORDERED: PROMETHAZINE 25 MG/ML VIAL IV ONE (14:05)
--- NOTE | 2018-11-26 14:27 | EEG ---
CHART: [id number] TEST ID#: [id number] DATE OF STUDY: 11/26/2018 THE EEG WAS RECORDED PORTABLE IN THE PATIENTS ROOM ON A 17 CHANNEL MACHINE. ELECTRODES WERE APPLIED IN THE USUAL MANNER USING THE INTERNATIONAL 10-20 SYSTEM. THE WAKING BACKGROUND RHYTHM IN THIS RECORD CONSISTS OF VERY WELL DEVELOPED AND WELL ORGANIZED WAVES OF 11 HZ., MAXIMAL IN THE POSTERIOR HEAD REGIONS WHICH ATTENUATE NORMALLY WITH EYE OPENING. LOW-VOLTAGE 18-22 HZ ACTIVITY IS EXPRESED IN THE FRONTAL REGIONS. THE PATIENT HAD MODERATE TO HIGH VOLTAGE 3-4 HZ SHARP WAVE ACTIVITY IN THE CENTRAL REGIONS, LASTING ONE HUNDRED SECONDS. SHE HAD EYE FLUTTERING AND GENERALIZED CONVULSIONS DURING THE ELECTROGRAPHIC EVENT. THERE ARE NO FOCAL OR LATERALIZING FEATURES. NO EPILEPTIFORM ACTIVITY APPEARS. SLEEP OCCURRED NATURALLY. IN ADDITION NORMAL SLEEP PATTERNS ARE PRESENT. HYPERVENTILATION WAS NOT PERFORMED. PHOTIC STIMULATION PRODUCED POOR DRIVING BILATERALLY. IMPRESSION: NORMAL ROUTINE ELECTROENCEPHALOGRAM. NO FOCAL OR LATERALIZINGOR ELILEPTIFORM ACTIVITY IS RECORDED.
[2018-11-26] MEDS ORDERED: levETIRAcetam 500 MG in NA CHLORIDE 0.9% 100 ML IV ONE (19:46)
[2018-11-26] MEDS ORDERED: LORazepam 2 MG/ML VIAL IV ONE (19:46)
[2018-11-26 21:02] LABS: RPR (Rapid Plasma Reagin) NON-REACT (NON-REACT)
--- NOTE | 2018-11-27 01:19 | CON ---
Reason For Consultation: Consultation called because of seizures. History Of Present Illness: Ms. Alberto is a 18-year-old, right-handed patient, who reportedly has a history of seizures when she was around 9 to age 12. Seizures did begin at the time of her menstrual cycle. She remained free of events until 2 days ago, when at work she was reported as generalized seizure. She said the whole day leading up to be above, she felt dizzy and lightheaded, was not herself and then the event was observed by coworkers. The emergency medical services were called and she did receive some Ativan as she had 2 other events and then in the emergency room reportedly another seizure. She was given Ativan a total of 5 mg and loaded with Keppra 1000 mg and put on 500 mg twice daily. No further events since the Keppra load. Head and cervical spine CT scans were unremarkable. Brain MRI without contrast was also unremarkable. She did have an EEG during an event. The EEG did show a normal background, 11 hertz occipital dominant rhythm and normal sinus activity, but during the clinical event, the patient did have rhythmic sharp wave activity noted bilaterally in the central parietal regions that appear to evolve into high-amplitude activity which did include some muscle artifact. However, there appeared to be some sharp wave discharges throughout the activity. It was lasted about 100 seconds. There was reported generalized shaking during this time. There was no tongue biting or loss of urine control. The patient came out of the event without much confusion. Past Medical History: Includes history of seizures as indicated. Otherwise, history of H. pylori and PCOS syndrome. Past Surgical History: None. Allergies: NONE. Medications: Estradiol and the NuvaRing vaginal ring. Family History: Positive for CVA and kidney disease in mother. She also reportedly had spina bifida and muscular atrophy and Chiari 1 malformation. Social History: She reportedly drinks 2-3 beers per week and denies cigarette or IV drug use. Review of Systems: No recent fevers, chills, nausea, vomiting, myalgias, arthralgias, rash, headache, psychiatric complaints, or other issues. Physical Examination: Vital Signs: Blood pressure 99/64, pulse 70, respiratory rate 16, temperature 99.3, oxygen saturation 98%. Weight 135 pounds. Height is 5 feet and 4 inches. General: Ms. Alberto is resting comfortably in bed. She is normocephalic, atraumatic. Her sclerae are anicteric. Oropharynx is moist and pink. Neck: Supple. Chest: Clear. Heart: Regular. Extremities: Show no clubbing, cyanosis, or edema. Neurologic: Alert, oriented to person, place, time, and situation. She follows all commands appropriately. She has no expressive or receptive aphasias. Cranial nerves 2 through 12 are intact. Motor examination, full strength in upper and lower extremities. Sensory exam intact to light touch and temperature in the arms and legs. Coordination intact. Gait, normal stance , right arm swing. Laboratory Studies: Complete blood count with differential is unremarkable. Sedimentation rate is 23. INR 1.03. Chemistries essentially unremarkable. Liver function studies show slightly low AST and ALT. Vitamin D level is pending. Urine showed a trace of blood, trace of esterase. Drug screen is negative. RPR is pending. Assessment: Ms. Alberto is a 18-year-old patient with reported history of seizures in the past and also apparent more recent seizures, urinalysis suggests possible urinary tract infection. Her EEG during a clinical event did not show spike and wave discharges. Therefore, this event was nonepileptic. Plan: She will receive 1 g of Rocephin from hospitalist and will be continued on Keppra 500 mg twice daily. She may require event characterization depending on how she does once discharged. After discharge, follow up with Dr. Kaba in clinic 1 month later. CANDELARIA Voice ID: [id number] Report ID: [id number] INOCENCIA
[2018-11-27] MEDS: NA CHLORIDE 0.9% 1,000 ML IV SCH (03:00)
[2018-11-27] MEDS: levETIRAcetam 500 MG in NA CHLORIDE 0.9% 100 ML IV SCH (06:00)
[2018-11-27] MEDS ORDERED: LEVETIRACETAM 500 MG/5 ML VIAL IV ONE (06:12)
[2018-11-27] MEDS ORDERED: NA CHLORIDE 0.9% 100 ML IV ONE (06:23)
[2018-11-27] MEDS ORDERED: clonazePAM 0.5 MG TAB PO PRN (07:41)
[2018-11-27] MEDS: CEFTRIAXONE/SWI 1gm 1 GM/10 ML SYR IV SCH (09:23)
[2018-11-27 10:30] VITALS: O2SAT 100
[2018-11-27 13:02] VITALS: BP 98/50; TEMP 98.4
--- NOTE | 2018-11-27 13:53 | P.DS ---
Admission Date: 11/26/18 Discharge Date: 11/27/18 Disposition: ROUTINE DISCHARGE Discharge Condition: GOOD Reason for Admission: Seizures Consultations: Neurology - Problems (1) Seizure disorder Status: Acute (2) UTI (urinary tract infection) Status: Acute Qualifiers: Urinary tract infection type: acute cystitis Brief History of Present Illness: Patient is a 18-year-old female came to the hospital with seizures while at work. Patient passed out and was found on the ground by her colleagues. She said the next thing she remembers was being in the ambulance. She was brought here for further evaluation. She did have a couple of additional seizures while in the emergency room. She will be admitted for further evaluation. Hospital Course: Overall during the hospital stay pt remained stable. Pt was admitted to the hospital for seizure like activity that she was found to have at home. 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 Recently had another episode. Was admitted and was started on Keppra. Neurology was consulted. reccs EEG, MRI, lab work. MRI negative for acute abnormality and EEG was false positive due to artifacts. neurology reccs pt can be discharged home on keppra and believes pt is having pseudoseizures. Pt remaines seizure free while here in the hospital on the day of the DC and thus was discharged home under stable condition. Was given ppx of Keppra and was asked f.u with neurology outpt. Vital Signs/Physical Exam: Temp Pulse Resp BP Pulse Ox 98.4 F 77 16 98/50 L 98 11/27/18 12:00 11/27/18 12:00 11/27/18 12:00 11/27/18 12:00 11/27/18 12:00 General: Alert, In no apparent distress HEENT: Atraumatic, PERRLA, EOMI Neck: Supple, JVD not distended Respiratory: Clear to auscultation bilaterally, Normal air movement Cardiovascular: Regular rate/rhythm, Normal S1 S2 Gastrointestinal: Normal bowel sounds, No tenderness Musculoskeletal: No tenderness Integumentary: No rashes Neurological: Normal speech, Normal tone, Normal affect Lymphatics: No axilla or inguinal lymphadenopathy Laboratory Data at Discharge: WBC 7.7 K/uL (4.3-10.9) 11/26/18 03:50 Hgb 11.2 g/dL (12.0-15.0) L 11/26/18 03:50 Hct 33.0 % (36.0-45.0) L 11/26/18 03:50 Plt Count 273 K/uL (152-406) 11/26/18 03:50 PT 12.1 SECONDS (9.5-12.5) 11/25/18 17:15 INR 1.03 11/25/18 17:15 APTT 33.0 SECONDS (24.3-36.9) 11/25/18 17:15 Sodium 141 mmol/L (136-145) 11/26/18 03:50 Potassium 3.9 mmol/L (3.5-5.1) 11/26/18 03:50 BUN 6 mg/dL (7-18) L 11/26/18 03:50 Creatinine 0.62 mg/dL (0.55-1.3) 11/26/18 03:50 Glucose 86 mg/dL (74-106) 11/26/18 03:50 Total Bilirubin 0.4 mg/dL (0.2-1.0) 11/26/18 03:50 AST 10 U/L (15-37) L 11/26/18 03:50 ALT 11 U/L (12-78) L 11/26/18 03:50 Alkaline Phosphatase 59 U/L (45-117) 11/26/18 03:50 Home Medications: Etonogestrel/Ethinyl Estradiol [Nuvaring Vaginal Ring] 1 donna VAG SEECOM Levocetirizine Dihydrochloride [24Hr Allergy Relief] 5 mg PO DAILY 11/26/18 Levetiracetam [Keppra] 500 mg PO BID #60 tablet 11/27/18 New Medications: Levetiracetam [Keppra] 500 mg PO BID #60 tablet Patient Discharge Instructions: Please f.u with PCP and Dr Kaba in 1 to 2 week post discharge. New medication. Keprra 500mg BID Diet: Regular Activity: Ad lucía Followup: Jacobo Kaba MD [ASSOCIATE-ACTIVE - CAN ADMIT] - 1 Week (call to schedule appointment)
[2018-11-30 08:41] LABS: Vitamin D 1,25-Dihydroxy Total 71 pg/mL (18-72); Vitamin D,1,25-OH2, D2 <8 pg/mL
== END 2018-11-27 13:13 | disposition home or self-care (01) | DRG 101 ==
LOC: ER 16:06 → 4TH 20:24 → OBSVTOIN 11-26 13:42
PROVIDERS: ADMIT Hospitalist; ATTEND Family Medicine
DX: G40.909 Epilepsy, unspecified, not intractable, without status epilepticus (principal); N30.00 Acute cystitis without hematuria
CPT/HCPCS: 36415; 70450; 70551; 72125; 80048; 80053; 80076; 80307; 80320; 80329; 81003; 82607; 82652; 84146; 84703; 85025; 85610; 85652; 85730; 86592; 87086; 87088; 93005; 95816; 99284; G0378; J0696; J1953; J2405; J2550; J7030

== ENCOUNTER 2019-07-06 09:53 | Emergency (ER) | payer BC, OTHER ==
--- NOTE | 2019-07-06 11:31 | RAD REPORT ---
EXAM DESCRIPTION: CT - Head Brain Wo Cont - 07/06/2019 11:10 am CLINICAL HISTORY: seizure COMPARISON: October 2018 TECHNIQUE: Computed axial tomography of the head was obtained. IV contrast was not requested. All CT scans are performed using dose optimization technique as appropriate and may include automated exposure control or mA/KV adjustment according to patient size. FINDINGS: An intracranial bleed is not seen . The ventricles are normal in caliber. No extra-axial fluid collection is noted. Fluid within the sinuses/ mastoids is not seen. IMPRESSION: No acute intracranial abnormality is seen. If patient's symptoms persist MRI of the bra in would be recommended.
[2019-07-06 11:45] LABS: Barbiturates NEGATIVE (NEGATIVE); Benzodiazepines NEGATIVE (NEGATIVE); Cocaine NEGATIVE (NEGATIVE); METHAMPHETAM NEGATIVE (NEGATIVE); Methadone NEGATIVE (NEGATIVE); Opiates NEGATIVE (NEGATIVE); Phencyclidine NEGATIVE (NEGATIVE); THC Cannibis NEGATIVE (NEGATIVE)
[2019-07-06 11:46] LABS: Urine Blood NEGATIVE (NEG); Urine Glucose NEGATIVE (NEG); Urine Protein NEGATIVE (NEG); Urine Specific Gravity 1.015 (1.005-1.030)
[2019-07-06] MEDS ORDERED: LORazepam 2 MG/ML VIAL ONE ×3 (12:08→16:08)
[2019-07-06 12:09] LABS: Urine Bacteria 20-50 /HPF (<20); Urine Culture Reflex Order REFLEXED; Urine Mucus 1+ /HPF (NONE SEEN); Urine RBC <5 /HPF (NONE SEEN)
[2019-07-06 12:13] LABS: Absolute Lymphocytes (CBC) 2.5 K/uL (0.7-4.9); Basophils % 0.4 % (0-1.3); Hematocrit 36.1 % (36.0-45.0); Lymphocytes % 38.8 % (15.3-44.8); MPV 7.5 fL (7.6-11.3); RBC Red Blood Cell Count 4.49 M/uL (3.86-4.86)
[2019-07-06 12:18] LABS: ALT/SGPT 18 U/L (12-78); AST/SGOT 15 U/L (15-37); Albumin 4.2 g/dL (3.4-5.0); Alkaline Phosphatase 83 U/L (45-117); BUN Blood Urea Nitrogen 7 mg/dL (7-18); Bicarbonate 28 mmol/L (21-32); Bilirubin Direct 0.2 mg/dL (0-0.2); Bilirubin Total 0.5 mg/dL (0.2-1.0); Glucose Level 78 mg/dL (74-106); Potassium 3.6 mmol/L (3.5-5.1); Sodium Level 141 mmol/L (136-145)
--- NOTE | 2019-07-06 12:19 | EKG ---
Test Date: 2019-07-06 Test Time: 10:30:38 Barrel Lathe Operator: PRO MEASUREMENT RESULTS: Intervals: Rate: 78 NE: 150 QRSD: 94 QT: 372 QTc: 424 Scott: P: 59 NE: 150 QRS: 82 T: 53 INTERPRETIVE STATEMENTS: Normal sinus rhythm Normal ECG Compared to ECG 09/12/2011 11:15:13 ST (T wave) deviation no longer present Electronically Signed On 07-06-19 12:19:10 [employer]IDES TEACHER by Wesley Nguyen
--- NOTE | 2019-07-06 17:58 | EEG ---
CHART: [id number] TEST ID#: [id number] DATE OF STUDY: 07/06/19 THE EEG WAS RECORDED PORTABLE IN THE EMERGENCY DEPARTMENT ON A 17 CHANNEL MACHINE. ELECTRODES WERE APPLIED IN THE USUAL MANNER USING THE INTERNATIONAL 10-20 SYSTEM. THE WAKING BACKGROUND RHYTHM IN THIS RECORD CONSISTS OF WELL DEVELOPED AND WELL ORGANIZED WAVES OF 10-11 HZ., MAXIMAL IN THE POSTERIOR HEAD REGIONS WHICH ATTENUATE NORMALLY WITH EYE OPENING. LOW-VOLTAGE 18-22 HZ ACTIVITY IS EXPRESSED IN THE FRONTAL REGION. THE PATIENT WAS ASLEEP DURING MAJORITY OF THE TEST. THERE ARE NO FOCAL OR LATERALIZING FEATURES. NO EPILEPTIFORM ACTIVITY APPEARS. SLEEP OCCURRED NATURALLY. IN ADDITION TO NORMAL SLEEP PATTERNS ARE PRESENT. HYPERVENTILATION WAS NOT PREFORMED. PHOTIC STIMULATION PRODUCED NO DRIVING BILATERALLY. IMPRESSION: NORMAL EEG FOR THE AGE OF THE PATIENT IN [place], DROWSINESS AND SLEEP.
--- NOTE | 2019-07-06 18:12 | ER ---
Nurse's Notes [facility] Name: Jen Tavarez Age: 18 yrs Sex: Female : 2000 Arrival Date: 07/06/2019 Time: 09:57 Bed 17 Private MD: Diagnosis: pseudoseizures Presentation: 07/06 09:58 Presenting complaint: EMS states: Pt was shaking 2x before we got to her, and 1 we ca1 witnessed. During the episode, when I touched her eyes, she blinked and her hand withdraw from pain. Also, during the episode, BP and HR did not increase and there was no post-ectal state. Episode lasts 20 seconds. Pt claims to have a history of seizures but is not taking meds for it. Transition of care: patient was not received from another setting of care. Onset of symptoms was July 06, 2019. Risk Assessment: Do you want to hurt yourself or someone else? Patient reports no desire to harm self or others. Initial Sepsis Screen: Does the patient meet any 2 criteria? No. Patient's initial sepsis screen is negative. Does the patient have a suspected source of infection? No. Patient's initial sepsis screen is negative. Care prior to arrival: IV initiated. 20 GA, in the right antecubital area, Glucose check: 85 Oxygen administered. via nasal cannula. 09:58 Method Of Arrival: EMS: [facility] ca1 09:58 Acuity: HALLEY 3 ca1 Triage Assessment: 10:03 General: Appears in no apparent distress. comfortable, Behavior is calm, cooperative, ca1 appropriate for age. Pain: Denies pain. EENT: No deficits noted. No signs and/or symptoms were reported regarding the EENT system. Neuro: Level of Consciousness is awake, alert, obeys commands, Oriented to person, place, time, situation, Appropriate for age Carpenter'S Helper are equal bilaterally Moves all extremities. Speech is normal, Facial symmetry appears normal, Pupils are PERRLA, Intact. Cardiovascular: Heart tones S1 S2 present Capillary refill < 3 seconds Patient's skin is warm and dry. Respiratory: Airway is patent Respiratory effort is even, unlabored, Respiratory pattern is regular, symmetrical, Breath sounds are clear bilaterally. GI: Abdomen is flat, non-distended, Bowel sounds present X 4 quads. Abd is soft and non tender X 4 quads. Reports nausea. : No deficits noted. No signs and/or symptoms were reported regarding the genitourinary system. Derm: Skin is intact, is healthy with good turgor, Skin is pink, warm \\T\\ dry. Musculoskeletal: Circulation, motion, and sensation intact. Capillary refill < 3 seconds, Range of motion: intact in all extremities. 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 - Social history:: Smoking status: Patient/guardian denies using tobacco. - Ebola Screening: : Patient negative for fever greater than or equal to 101.5 degrees Fahrenheit, and additional compatible Ebola Virus Disease symptoms Patient denies exposure to infectious person Patient denies travel to an Ebola-affected area in the 21 days before illness onset No symptoms or risks identified at this time. - Family history:: not pertinent. - Hospitalizations: : No recent hospitalization is reported. Screenin:06 Abuse screen: Denies threats or abuse. Denies injuries from another. Nutritional ca1 screening: No deficits noted. Tuberculosis screening: No symptoms or risk factors identified. Fall Risk Secondary diagnosis (15 points) seizures. Assessment: 10:06 Reassessment: SEE TRIAGE ASSESSMENT. ca1 10:24 Reassessment: Pt c/o chest pain 6/10 at the substernal area. Notified provider. EKG ca1 ordered. 11:20 Reassessment: Patient appears in no apparent distress at this time. Patient and/or ca1 family updated on plan of care and expected duration. Pain level reassessed. Patient is alert, oriented x 3, equal unlabored respirations, skin warm/dry/pink. 12:08 Neuro: Seizure activity noted at this time. Seizure lasted approximately 0.1 minutes. ca1 12:30 Reassessment: Patient appears in no apparent distress at this time. Patient is alert, ca1 oriented x 3, equal unlabored respirations, skin warm/dry/pink. 13:14 Reassessment: Patient appears in no apparent distress at this time. Patient and/or ca1 family updated on plan of care and expected duration. Pain level reassessed. Patient is alert, oriented x 3, equal unlabored respirations, skin warm/dry/pink. 13:30 Reassessment: EEG at bedside. ca1 14:02 Reassessment: patient seizing lasting approximately 10 seconds, 1 mg Ativan ordered and ss administered. 14:14 Reassessment: Patient appears in no apparent distress at this time. Patient is alert, ca1 oriented x 3, equal unlabored respirations, skin warm/dry/pink. EEG and family still at bedside. 15:08 Reassessment: Patient appears in no apparent distress at this time. Patient is alert, ca1 oriented x 3, equal unlabored respirations, skin warm/dry/pink. 15:30 Reassessment: Patient appears in no apparent distress at this time. pt mother at the nurses station at this time states " that small EEG they just did is not going to show anything. [facility] had ones like that done and they do not tell the information as in depth as the other EEG. Is there going to be an actual neurologist look at the EEG and come talk with us." pt mother informed that will come speak with you and attempt to answer questions, notified. 16:10 Reassessment:. Neuro: Seizure activity noted at this time. lasted 8 seconds. Ativan 1mg ca1 ordered and given. 16:44 Reassessment: Patient appears in no apparent distress at this time. Patient is alert, ca1 oriented x 3, equal unlabored respirations, skin warm/dry/pink. Dr. Kaba at bedside discussing EEG results to pt and family. 17:10 Reassessment: Patient appears in no apparent distress at this time. Patient is alert, ca1 oriented x 3, equal unlabored respirations, skin warm/dry/pink. Dr. Kaba says to provide list of Psychiatrist in the area. Printed and attached to chart, to give once discharged. 17:51 Reassessment: Patient appears in no apparent distress at this time. Patient is alert, ca1 oriented x 3, equal unlabored respirations, skin warm/dry/pink. 18:34 Reassessment: Patient appears in no apparent distress at this time. Patient is alert, ca1 oriented x 3, equal unlabored respirations, skin warm/dry/pink. Vital Signs: 10:03 BP 110 / 75; Pulse 77; Resp 17 S; Temp 98.5(O); Pulse Ox 100% on R/A; Weight 63.5 kg ca1 (R); Height 5 ft. 4 in. (162.56 cm) (R); Pain 0/10; 11:20 BP 117 / 76; Pulse 76; Resp 16 S; Pulse Ox 100% on R/A; ca1 12:24 BP 111 / 89; Pulse 79; Resp 17 S; Pulse Ox 100% on R/A; ca1 13:37 BP 114 / 75; Pulse 79; Resp 17 S; Pulse Ox 100% on R/A; ca1 14:51 BP 125 / 81; Pulse 81; Resp 16 S; Pulse Ox 100% on R/A; ca1 15:14 BP 103 / 72; Pulse 92; Resp 18; Pulse Ox 100% ; em1 16:16 BP 115 / 63; Pulse 93; Resp 17 S; Pulse Ox 100% on R/A; ca1 17:42 BP 115 / 83; Pulse 94; Resp 16 S; Pulse Ox 100% on R/A; ca1 18:34 BP 110 / 76; Pulse 89; Resp 17; Pulse Ox 100% on R/A; ca1 10:03 Body Mass Index 24.03 (63.50 kg, 162.56 cm) ca1 Aleisha Coma Score: 10:03 Eye Response: spontaneous(4). Verbal Response: oriented(5). Motor Response: obeys ca1 commands(6). Total: 15. ED Course: 09:57 Patient arrived in ED. ca1 10:02 Triage completed. ca1 10:03 Arm band placed on right wrist. ca1 10:06 Patient has correct armband on for positive identification. Bed in low position. Call ca1 light in reach. Side rails up X2. Seizure precautions initiated. Pulse ox on. NIBP on. Warm blanket given. 10:06 No provider procedures requiring assistance completed. Maintain EMS IV. Dressing ca1 intact. Good blood return noted. Site clean \\T\\ dry. Gauge \\T\\ site: G20 RAC. 10:18 James Daly MD is Attending Physician. wa 10:24 Dalia Owens, MARCELO is Primary Nurse. ca1 10:35 EKG done, by motorsports technician. reviewed by James Daly MD. at1 11:12 CT Head Brain wo Cont In Process Unspecified. EDMS 15:01 EEG was done. sm3 18:11 Anant Schmidt MD is Referral Physician. nd 18:11 Reno Jenkins MD is Referral Physician. wa 18:11 Keaton Lacey MD is Referral Physician. wa 18:35 IV discontinued, intact, bleeding controlled, No redness/swelling at site. Pressure ca1 dressing applied. Administered Medications: 12:10 Drug: Ativan 1 mg Route: IVP; Site: right antecubital; ca1 13:00 Follow up: Response: No adverse reaction ca1 14:02 Drug: Ativan 1 mg Route: IVP; Site: right antecubital; ss 14:42 Follow up: Response: No adverse reaction ca1 16:10 Drug: Ativan 1 mg Route: IVP; Site: right antecubital; ca1 16:45 Follow up: Response: No adverse reaction ca1 Outcome: 18:11 Discharge ordered by . wa 18:35 Discharged to home with significant other. ca1 18:35 Condition: stable 18:35 Discharge instructions given to patient, Instructed on discharge instructions, follow up and referral plans. Demonstrated understanding of instructions, follow-up care. 18:36 Patient left the ED. ca1 Signatures: Dispatcher [employer] EDMS Paul Boyd RN RN Rodo Cortez em1 Farhana Donahue RN RN ss Salome Woods, hi lift operator EKG Tat1 James Daly MD MD wa Montes, Shakira 3 Dalia Owens RN RN ca1 Corrections: (The following items were deleted from the chart) 14:03 10:03 Allergies: unknown seizure medication: starts with S; ca1 ss 14:18 14:14 Reassessment: Patient appears in no apparent distress at this time. Patient is ca1 alert, oriented x 3, equal unlabored respirations, skin warm/dry/pink. ca1
--- NOTE | 2019-07-06 18:13 | EDPHYS ---
Physician Documentation [facility] Name: Jen Tavarez Age: 18 yrs Sex: Female : 2000 Arrival Date: 07/06/2019 Time: 09:57 Bed 17 Private MD: ED Physician James Daly HPI: 07/06 11:01 This 18 yrs old Female presents to ER via EMS with complaints of Probable wa Seizure. 11:01 The patient presents after having a single isolated seizure, that lasted 1 minute(s). wa Character of seizure(s): Loss of consciousness: the patient experienced loss of consciousness, brief, Motor activity: generalized, shaking all over. Seizure onset: just prior to arrival. Context: the seizure(s) was witnessed, by co-worker(s), occurred at work, occurred while the patient was sitting, Contributing factors: unknown. Seizure Hx: h/o intermittent SZ since age 8. not on meds. 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 per pts significant other, she's been having brief episodes lately. Associated injury: The patient did not suffer any apparent associated injury. EMS care: none. Current symptoms: feels muscle aches all over. The patient has experienced similar episodes in the past, several times. The patient has not recently seen a physician. 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 - Social history:: Smoking status: Patient/guardian denies using tobacco. - Ebola Screening: : Patient negative for fever greater than or equal to 101.5 degrees Fahrenheit, and additional compatible Ebola Virus Disease symptoms Patient denies exposure to infectious person Patient denies travel to an Ebola-affected area in the 21 days before illness onset No symptoms or risks identified at this time. - Family history:: not pertinent. - Hospitalizations: : No recent hospitalization is reported. ROS: 11:06 Constitutional: Negative for fever, chills, and weight loss, Eyes: Negative for injury, wa pain, redness, and discharge, ENT: Negative for injury, pain, and discharge, Neck: Negative for injury, pain, and swelling, Cardiovascular: Negative for chest pain, palpitations, and edema, Respiratory: Negative for shortness of breath, cough, wheezing, and pleuritic chest pain, Abdomen/GI: Negative for abdominal pain, nausea, vomiting, diarrhea, and constipation, Back: Negative for injury and pain, : Negative for injury, bleeding, discharge, and swelling, Skin: Negative for injury, rash, and discoloration, Psych: Negative for depression, anxiety, suicide ideation, homicidal ideation, and hallucinations. 11:06 MS/extremity: Positive for generalized aches. 11:06 Neuro: Positive for seizure activity. Exam: 11:07 Constitutional: This is a well developed, well nourished patient who is awake, alert, wa and in no acute distress. Head/Face: Normocephalic, atraumatic. Eyes: Pupils equal round and reactive to light, extra-ocular motions intact. Lids and lashes normal. Conjunctiva and sclera are non-icteric and not injected. Cornea within normal limits. Periorbital areas with no swelling, redness, or edema. ENT: Nares patent. No nasal discharge, no septal abnormalities noted. Tympanic membranes are normal and external auditory canals are clear. Oropharynx with no redness, swelling, or masses, exudates, or evidence of obstruction, uvula midline. Mucous membranes moist. Neck: Trachea midline, no thyromegaly or masses palpated, and no cervical lymphadenopathy. Supple, full range of motion without nuchal rigidity, or vertebral point tenderness. No Meningismus. Cardiovascular: Regular rate and rhythm with a normal S1 and S2. No gallops, murmurs, or rubs. Normal PMI, no JVD. No pulse deficits. Respiratory: Lungs have equal breath sounds bilaterally, clear to auscultation and percussion. No rales, rhonchi or wheezes noted. No increased work of breathing, no retractions or nasal flaring. Abdomen/GI: Soft, non-tender, with normal bowel sounds. No distension or tympany. No guarding or rebound. No evidence of tenderness throughout. Back: No spinal tenderness. No costovertebral tenderness. Full range of motion. Skin: Warm, dry with normal turgor. Normal color with no rashes, no lesions, and no evidence of cellulitis. MS/ Extremity: Pulses equal, no cyanosis. Neurovascular intact. Full, normal range of motion. Psych: Awake, alert, with orientation to person, place and time. Behavior, mood, and affect are within normal limits. 11:07 Neuro: Orientation: is normal, Mentation: is normal, Cranial nerves: grossly normal, Cerebellar function: is grossly normal, Motor: is normal. 11:08 Neuro: seizure activity, is not displayed by the patient. wa Vital Signs: 10:03 BP 110 / 75; Pulse 77; Resp 17 S; Temp 98.5(O); Pulse Ox 100% on R/A; Weight 63.5 kg ca1 (R); Height 5 ft. 4 in. (162.56 cm) (R); Pain 0/10; 11:20 BP 117 / 76; Pulse 76; Resp 16 S; Pulse Ox 100% on R/A; ca1 12:24 BP 111 / 89; Pulse 79; Resp 17 S; Pulse Ox 100% on R/A; ca1 13:37 BP 114 / 75; Pulse 79; Resp 17 S; Pulse Ox 100% on R/A; ca1 14:51 BP 125 / 81; Pulse 81; Resp 16 S; Pulse Ox 100% on R/A; ca1 15:14 BP 103 / 72; Pulse 92; Resp 18; Pulse Ox 100% ; em1 16:16 BP 115 / 63; Pulse 93; Resp 17 S; Pulse Ox 100% on R/A; ca1 17:42 BP 115 / 83; Pulse 94; Resp 16 S; Pulse Ox 100% on R/A; ca1 18:34 BP 110 / 76; Pulse 89; Resp 17; Pulse Ox 100% on R/A; ca1 10:03 Body Mass Index 24.03 (63.50 kg, 162.56 cm) ca1 [place] Coma Score: 10:03 Eye Response: spontaneous(4). Verbal Response: oriented(5). Motor Response: obeys ca1 commands(6). Total: 15. MDM: 10:18 Patient medically screened. wa 11:08 Differential diagnosis: seizure, pseudoseizure? absence Sz? per family and co-workers. wa she's had brief episodes described as staring blankly into space. resolves after a few seconds. 12:50 Data reviewed: vital signs, nurses notes. Test interpretation: by ED physician or wy midlevel provider:. 13:20 ED course: labs and CT wnl. pt noted several episodes shaking. however no post-ictal wy state noted afterwards. spoke with neurologist Sendy. Will see pt in ED. has advised to obtain and EEG in the dept. 18:08 Special discussion: several episodes in ED. pt w/o post-ictal state after episodes. wy bedside EEG done. Dr. Kaba (neurology) saw pt in ED. red EEG as non-epileptic. advised d/c and f/u with psychiatry. pt and family understood and plan to f/u as advised. 07/06 10:44 Order name: Basic Metabolic Panel; Complete Time: 12:48 wy 07/06 10:44 Order name: CBC with Diff; Complete Time: 12:48 wy 07/06 10:44 Order name: ETOH Level; Complete Time: 12:48 wy 07/06 10:44 Order name: Hepatic Function; Complete Time: 12:48 wy 07/06 10:44 Order name: Urine Drug Screen; Complete Time: 11:49 wy 07/06 10:45 Order name: Urine Microscopic Only; Complete Time: 12:48 wy 07/06 10:45 Order name: CT Head Brain wo Cont; Complete Time: 11:45 wy 07/06 11:26 Order name: Urine Dipstick--Ancillary (enter results); Complete Time: 11:49 [facility] 07/06 11:26 Order name: Urine --Ancillary (enter results); Complete Time: 11:49 [facility] 07/06 12:13 Order name: Urine Culture [facility] 07/06 13:01 Order name: EEG Request [facility] 07/06 10:25 Order name: EKG; Complete Time: 10:25 ca1 07/06 10:25 Order name: EKG - Nurse/Tech; Complete Time: 10:34 ca1 07/06 10:44 Order name: Urine Test (obtain specimen); Complete Time: 11:20 wy 07/06 10:44 Order name: IV Saline Lock; Complete Time: 11:05 wy 07/06 10:44 Order name: Labs collected and sent; Complete Time: 11:05 wy 07/06 10:44 Order name: Urine Dipstick-Ancillary (obtain specimen); Complete Time: 11:20 wy Administered Medications: 12:10 Drug: Ativan 1 mg Route: IVP; Site: right antecubital; ca1 13:00 Follow up: Response: No adverse reaction ca1 14:02 Drug: Ativan 1 mg Route: IVP; Site: right antecubital; ss 14:42 Follow up: Response: No adverse reaction ca1 16:10 Drug: Ativan 1 mg Route: IVP; Site: right antecubital; ca1 16:45 Follow up: Response: No adverse reaction ca1 Disposition: 07/06/19 18:11 Discharged to Home. Impression: pseudoseizures. - Condition is Stable. - Discharge Instructions: Seizure, Adult, Gyrx-ic-Hmcs. - Medication Reconciliation Form, Thank You Letter, Antibiotic Education, Prescription Opioid Use, Work release form form. - Follow up: Anant Schmidt MD; When: 1 - 2 days. Follow up: Reno Jenkins MD; When: 1 - 2 days. Follow up: Keaton Lacey MD; When: 1 - 2 days. - Problem is an acute exacerbation. - Symptoms have improved. - Notes: please follow up with psychiatry per referrals given you. You need further evaluation of your illness for definitive diagnosis Signatures: Dispatcher [employer] EDFarhana Lebron RN RN James Daly MD MD wa Acob, Cheryl RN RN ca1 Corrections: (The following items were deleted from the chart) 14:03 10:03 Allergies: unknown seizure medication: starts with S; ca1 ss 18:36 18:11 07/06/2019 18:11 Discharged to Home. Impression: pseudoseizures. Condition is ca1 Stable. Forms are Medication Reconciliation Form, Thank You Letter, Antibiotic Education, Prescription Opioid Use. Follow up: Anant Schmidt; When: 1 - 2 days. Follow up: Reno Jenkins; When: 1 - 2 days. Follow up: Keaton Lacey; When: 1 - 2 days. Problem is an acute exacerbation. Symptoms have improved. amira
[2019-07-06 20:39] VITALS: TEMP 98.5; O2SAT 100
[2019-07-06 20:50] VITALS: BP 110/76
== END 2019-07-06 18:36 | disposition home or self-care (01) ==
LOC: ER 09:53
DX: G40.802 Other epilepsy, not intractable, without status epilepticus (principal); Z88.8 Allergy status to other drugs, medicaments and biological substances
CPT/HCPCS: 36415; 70450; 80048; 80076; 80307; 80320; 81003; 81015; 81025; 85025; 87077; 87086; 87088; 87186; 93005; 95819; 96374; 99284

== ENCOUNTER 2020-04-02 13:10 | Emergency (ER) | payer BC ==
--- OUTSIDE RECORDS SUMMARY | 2020-04-02 13:13 | XMS REPORT | Continuity of Care Document ---
:2000 Author Organization [facility] Care Team Providers Name Role Phone [facility] Unavailable Un available Problems Problem Status Onset Classification Date Comments Sourc e Date Reported ABDOMINAL Active [facility] CRAMPING 6 Land Discharge 04/03/2016 [facility] Diagnosis: 6 [place] Abdominal pain in Discharge 03/21/2016 [facility] Diagnosis: 6 [place] Normal IUP (intrauterine ) on ultrasound Discharge 03/21/2016 [facility] Diagnosis: 6 [place] Dehydration VOMITING, 9 Active [facility] WEEKS 6 [place] Medications Medication Details Route Status Patient Ordering Order Source Instructions Provider Date Promethazine 25 mg, Route: Inactive S ugar IM, ONCE, [facility] Dosing Weight 60.318, kg, Priority: STAT, Start date: 03/31/16 20:52:00 CDT, Stop date: 03/31/16 20:52:00 CDT Ondansetron 4 mg, Route: Inactive Sug ar IVP, ONCE, [facility] Dosing Weight 60.318, kg, Priority: STAT, Start date: 03/31/16 20:52:00 CDT, Stop date: 03/31/16 20:52:00 CDT Saline Flush Notes: (Same Inactive Branch gar 0.9% as: BD [facility] Posiflush) Sodium Chloride 1,000 mL, Inactive Branch gar 0.154 MEQ/ML 1,000 ml/hr, [facility] Injectable Infuse Over: Solution 1 hr, Route: IV, 1,000, Drug form: INJ, ONCE, Priority: STAT, Dosing Weight 60.318 kg, Start date: 03/31/16 19:13:00 CDT, Duration: 1 doses or times, Stop date: 03/31/16 19:13:00 CDT Phenergan 25 mg 25 mg = 1 Active Sug ar oral tablet tab, PO, Q6H, 016 [place] PRN Nausea, X 4 day, # 15 tab, 0 Refill(s) Promethazine 25 mg = 1 Active [facility] Hydrochloride 25 supp, CT, 016 [place] MG Rectal Q6H, PRN Suppository Nausea & [Phenergan] Vomiting, X 3 day, # 12 supp, 0 Refill(s) Sodium Chloride 1,000 mL, Inactive Branch gar 0.154 MEQ/ML Rate: 250 016 [place] Injectable [...] 15:34:00 CDT Sodium Chloride 2,000 mL, Inactive Branch gar 0.154 MEQ/ML 4000 ml/hr, 016 [place] Injectable Infuse Over: Solution 30 minutes, Route: IV, 2,000, Drug form: INJ, ONCE, Priority: STAT, Dosing Weight 59.091 kg, Start date: 03/18/16 15:00:00 CDT, Duration: 1 doses or times, Stop date: 03/18/16 15:00:00 CDT Ondansetron Notes: (Same Inactive Sug ar as: Zofran) 016 [place] MEDICATION WASTE Product Size: 4 mg Product Wasted: ___ mg Saline Flush Notes: (Same Inactive Branch gar 0.9% as: BD 016 [place] Posiflush) Allergies, Adverse Reactions, Alerts No Known Medication Allergies Immunizations No Data Provided for This Section Results Order Name Results Value Reference Date Interpretation Comments [facility]ashay rce Range BLOOD BANK ABO/Rh O POS 04/01 [facility] [place] [place] [id number] 04/01 [facility]AT[facility] Eosinophils # 0.1 0.0 - 0.5 04/01 [facility] Basophils # 0.0 0.0 - 0.2 08/ MH /2015 [facility]EMAT[facility] Monocytes # 0.8 0.0 - 0.8 08/ [facility] Segs-Bands # 6.3 1.5 - 8.1 / [facility] Lymphocytes # 2.8 1.0 - 5.5 08 [facility] Eosinophils 1.4 0.0 - 4.0 / [facility] Basophils 0.3 0.0 - 1.0 08/ [facility]AT[facility] Lymphocytes 27.4 20.0 - 08 MH 40.0 /2015 [facility] HEMAT[facility] Monocytes 8.0 2.0 - 12.0 04/01 [facility] HEMAT[facility] Segs 62.9 45.0 - 08 MH 75.0 /2015 [facility] Hgb 11.7 12.0 - 08 MH 16.0 /2015 [facility] Hct 35.9 36.0 - 04/01 MH 48.0 /2015 [facility] WBC 10.1 3.7 - 10.4 08 [facility] RBC 3.99 4.20 - 08 MH 5.40 /2015 [facility] MCV 90.0 80.0 - 04/01 MH 98.0 /2015 [facility]AT[facility] MCH 29.3 27.0 - 08 MH 31.0 /2015 [facility] MCHC 32.6 32.0 - 04/01 MH 36.0 /2015 [facility]EMAT[facility] RDW 13.6 11.5 - 04/01 MH 14.5 /2015 [facility] MPV 7.1 7.4 - 10.4 04/01 [facility] Platelet 322 133 - 450 04/01 [facility] URINE AND UA Bili Negative Negative 04/01 STO[facility] *NA* /2015 [facility] (03/31/16 7:46 PM) [place] URINE AND UA 0.2 0.1 - 1.0 04/01 [facility] Urobilinogen /2015 [place] URINE AND UA Nitrite Negative Negative 04/01 [facility] (03/31/16 7:46 PM) [facility] URINE AND UA Leuk Est Negative Negative 04/01 [facility] (03/31/16 7:46 PM) [facility] URINE AND UA Blood Trace Negative 04/01 [facility] *ABN* /2015 [place] (03/31/16 7:46 PM) [place] URINE AND UA Glucose Negative Negative 04/01 [facility] (03/31/16 7:46 PM) [place] URINE AND UA pH 6.0 5.0 - 8.0 04/01 STOOL [place] URINE AND UA Protein Negative Negative 04/01 [facility] (03/31/16 7:46 PM) [place] URINE AND UA Ketones Negative Negative 04/01 STO[facility] *NA* /2015 [place] (03/31/16 7:46 PM) [place] URINE AND UA Spec Grav 1.025 <=1.030 04/01 STOOL [place] URINE AND UA Turbidity Slight Cloudy Clear 04/01 [facility] (03/31/16 7:46 PM) [facility] URINE AND UA Color Yellow Yellow 04/01 [facility] *NA* /2015 [place] (03/31/16 7:46 PM) [place] URINE AND UA Mucus Few /LPF None Seen 04/01 [facility] /LPF /2015 [place] URINE AND UA Bacteria Moderate None Seen 04/01 [facility] /HPF /HPF [place] URINE AND UA RBC 0-2 /HPF 0 - 2 04/01 STOOL [place] URINE AND UA WBC 0-2 /HPF None Seen 04/01 [facility] /HPF /2015 [place] URINE AND Micro? Performed 04/01 [facility] (03/31/16 7:46 PM) [facility] URINE AND UA Sq Epi Few /LPF Few /LPF 04/01 STOOL [facility]EMAT[facility] D-Dimer 0.30 03/18 [facility] [place]OCRINOLOGY [place] [id number] 03/18 [facility] CHEM PANEL eGFR 139 03/18 Result Comment: [place] The eGFR is [place] calculated using the modified Maya equation 0.413 x Height (cm) /Serum Creatinine (mg/dL). CHEM PANEL AST 12 0 - 37 03/18 [facility] CHEM PANEL Total Protein 7.0 6.4 - 8.4 03/18 [facility] CHEM PANEL Albumin Lvl 3.6 3.5 - 5.0 03/18 [facility] CHEM PANEL Calcium Lvl 8.1 8.5 - 10.5 03/18 [facility] CHEM PANEL ALT 16 0 - 65 07/ [facility] CHEM PANEL Bili Total 0.2 0.2 - 1.3 03/18 [facility] CHEM PANEL Alk Phos 61 39 - 136 03/18 [facility] CHEM PANEL CO2 27 24 - 32 07 [facility] CHEM PANEL Chloride Lvl 105 95 - 109 03/18 [facility] CHEM PANEL Glucose Lvl 75 70 - 99 07 [facility] CHEM PANEL BUN 7 7 - 22 07 [facility] CHEM PANEL Creatinine 0.48 0.50 - 07/18 MH Lvl 1.40 /2015 [facility] CHEM PANEL Potassium Lvl 3.8 3.5 - 5.1 03/18 [facility] CHEM PANEL Sodium Lvl 140 135 - 145 03/18 [facility] CHEM PANEL A/G Ratio 1.1 0.7 - 1.6 03/18 [facility] CHEM PANEL Globulin 3.4 2.0 - 4.0 03/18 [facility] CHEM PANEL B/C Ratio 15 6 - 25 03/18 [facility] CHEM PANEL AGAP 11.8 10.0 - 07 MH 20.0 /2015 [facility] CHEM PANEL Magnesium Lvl 2.0 1.8 - 2.4 03/18 [facility] CHEM PANEL Phosphorus 4.5 2.5 - 4.5 03/18 [facility] HEMATOLOGY Lymphocytes # 2.4 1.0 - 5.5 03/18 [facility] HEMAT[facility] Monocytes 7.7 2.0 - 12.0 03/18 [facility] HEMATOLOGY Segs 67.9 45.0 - 07 MH 75.0 /2015 [facility] HEMATOLOG[facility] Lymphocytes 23.3 20.0 - 0718 MH 40.0 /2016 [facility] HEMAT[facility] Eosinophils 0.9 0.0 - 4.0 03/18 [facility] HEMAT[facility] Basophils 0.2 0.0 - 1.0 03/18 [facility] HEMATOLOG[facility] Segs-Bands # 6.9 1.5 - 8.1 03/18 [facility] HEMATOLOGY Monocytes # 0.8 0.0 - 0.8 03/18 [facility] HEMATOLOG[facility] Eosinophils # 0.1 0.0 - 0.5 03/18 [facility] HEMAT[facility] Basophils # 0.0 0.0 - 0.2 03/18 MH /2015 [facility] HEMAT[facility] RDW 13.6 11.5 - 03/18 MH 14.5 /2015 [facility]EMAT[facility] Platelet 316 133 - 450 03/18 [facility] HEMAT[facility] MPV 7.5 7.4 - 10.4 03/18 [facility] HEMAT[facility] MCV 88.2 80.0 - 03/18 MH 98.0 /2015 [facility] HEMAT[facility] MCH 29.8 27.0 - 03/18 MH 31.0 /2015 [facility]AT[facility] MCHC 33.8 32.0 - 03/18 MH 36.0 /2015 [facility] HEMAT[facility] Hct 34.7 36.0 - 03/18 MH 48.0 /2015 [facility] HEMAT[facility] RBC 3.94 4.20 - 03/18 MH 5.40 /2015 [facility] HEMAT[facility] Hgb 11.7 12.0 - 03/18 MH 16.0 /2015 [facility] HEMAT[facility] WBC 10.2 3.7 - 10.4 03/18 [place] URINE AND UA Bacteria Few /HPF None Seen 03/18 MH STOOL /HPF /2015 [place] URINE AND UA RBC 0-2 /HPF 0 - 2 03/18 STOOL /2015 [place] URINE AND UA Amorph Few /HPF None Seen 03/18 [facility] Leslie /HPF [place] URINE AND UA Spec Grav 1.020 <=1.030 03/18 STOOL [place] URINE AND UA 0.2 0.1 - 1.0 03/18 [facility] Urobilinogen /2015 [place] URINE AND UA Blood Trace Negative 03/18 [facility] *ABN* [place] (03/18/16 1:37 PM) [place] URINE AND UA Bili Negative Negative 03/18 [facility] *NA* /2015 [place] (03/18/16 1:37 PM) [place] URINE AND UA Glucose Negative Negative 03/18 [facility] (03/18/16 1:37 PM) [facility] URINE AND UA Protein Negative Negative 03/18 [facility] (03/18/16 1:37 PM) [place] URINE AND UA pH 7.0 5.0 - 8.0 03/18 STOOL /2015 [place] URINE AND UA Ketones Negative Negative 03/18 [facility] *NA* /2015 [place] (03/18/16 1:37 PM) [place] URINE AND UA Turbidity Slight Cloudy Clear 03/18 [facility] (03/18/16 1:37 PM) /2015 [place] URINE AND UA Color Yellow Yellow 03/18 [facility] *NA* /2015 [place] (03/18/16 1:37 PM) [place] URINE AND UA Leuk Est Negative Negative 03/18 [facility] (03/18/16 1:37 PM) [place] URINE AND UA Nitrite Negative Negative 03/18 [facility] (03/18/16 1:37 PM) [facility] URINE AND UA WBC 0-2 /HPF None Seen 03/18 [facility] /HPF /2015 [place] URINE AND UA Sq Epi Rare /LPF Few /LPF 03/18 STOOL /2015 [place] URINE CHEM U Preg Positive Negative 03/18 *ABN* /2015 [place] (03/18/16 1:37 PM) [facility] Pathology Reports No Data Provided for This Section Diagnostic Reports Report Value Date Source Preg < 14wks Single EXAM: 03/31/2016 [facility] Neri d gest w Transvag US Pelvic ultrasound. INDICATION: Pelvic pain. TECHNIQUE: Grayscale and Doppler sonogram of the pelvis. Transabdominal technique was used. Transvaginal technique was used for better evalu ation of the pelvic viscera. Note: MSD=mean sac diameter. CRL=crown-rump length. LMP=last menstrual period. MA=mean gestational age. ZAIN=estimated date of delivery. COMPARISON: 03/18/16. FINDINGS: Uterus: Anteverted. Measures 11.8 x 6.1 x 7.6 cm. Endometrium: Intrauterine gestational sac. Gestational sac: MSD measures 3.97 cm. Shape is oval. Fetus: CRL measures 4.21 cm. Heart rate: 169 bpm. Other: Subchorionic hematoma: None. Amniotic fluid: Subjectively within normal limi ts. Maternal ovaries: Right: Measures 2.99 x 2.05 x 3.38 cm. Normal do ppler flow. Left: Measures 3.22 x 1.54 x 2.84 cm. Normal dop pler flow. Clinical: LMP: 01/15/16. MA: 10 weeks 6 days. ZAIN: 10/21/16. Ultrasound: MA: 10 weeks 3 days. ZAIN: 10/24/16. IMPRESSION: 1. Single live intrauterine . Preg < 14wks sing gest EXAM: 03/18/2016 [facility] w transvag/Dop US Pelvic ultrasound. INDICATION: Pelvic pain. Age: 15 years. Gender: Female. TECHNIQUE: Grayscale and Doppler sonogram of the pelvis. Transabdominal technique was used. Transvaginal technique was used for better evalu ation of the pelvic viscera. Note: MSD=mean sac diameter. CRL=crown-rump length. LMP=last menstrual period. MA=mean gestational age. ZAIN=estimated date of delivery. COMPARISON: None. FINDINGS: Uterus: Visualization: Well seen. Anteverted. Measures 9.1 x 5.6 x 7 cm. Endometrium: Intrauterine gestational sac. Gestational sac: MSD measures 3.7 cm. Shape is o manda. Fetus: CRL measures 2.5 cm. Heart rate: 170 bpm. Other: Subchorionic hematoma: None. Amniotic fluid: Subjectively within normal limi ts. Maternal ovaries: Right: Measures 2.8 x 1.7 x 2.2 cm. Doppler flow present. Left: Measures 2.6 x 1.9 x 2.1 cm. Doppler flow present. Clinical: LMP: 01/15/2016. MA: 9 weeks 0 days. ZAIN: 10/21/2016. Ultrasound: MA: 9 weeks 2 days. ZAIN: 10/19/2016. IMPRESSION: 1. Single live intrauterine . Consultation Notes No Data Provided for This Section Discharge Summaries No Data Provided for This Section History and Physicals No Data Provided for This Section Vital Signs Vital Sign Value Date Comments Source Respitory Rate 17 04/01/2016 [facility] Heart Rate 88 04/01/2016 [facility] Height 162.56 cm 03/31/2016 [facility] BMI Calculated 22.83 03/31/2016 [facility] Weight 60.318 03/31/2016 [facility] Systolic (mm Hg) 131 03/31/2016 [facility] [place] Diastolic (mm Hg) 69 03/31/2016 MH [place] L and Heart Rate 87 03/31/2016 [facility] Respitory Rate 18 03/31/2016 [facility] Temperature Oral (F) 97.4 F 03/31/2016 [place] Systolic (mm Hg) 112 03/18/2016 MH [place] Diastolic (mm Hg) 62 03/18/2016 MH [place] L and Heart Rate 88 03/18/2016 [facility] Respitory Rate 20 03/18/2016 [facility] Temperature Oral (F) 98.2 F 03/18/2016 [place] Weight 59.091 03/18/2016 [facility] BMI Calculated 22.36 03/18/2016 [facility] Height 162.56 cm 03/18/2016 [facility] Temperature Oral (F) 98.2 F 03/18/2016 [place] Respitory Rate 20 03/18/2016 [facility] Heart Rate 92 03/18/2016 [facility] Systolic (mm Hg) 105 03/18/2016 [place] Diastolic (mm Hg) 66 03/18/2016 [facility] L and Encounters Location Location Encounter Encounter Reason Attending ADM DC Stat us Source Details Type Number For Provider Date Date Visit [facility] [id number] Radha 03/18 03/18 M [facility] /2015 [facility] EC [id number] [place] 03/31 04/01 [facility] /2015 [facility] Out[facility] [id number] CAROLA-LILI 04/25 [id number] [facility] [place] [facility] Procedures No Data Provided for This Section Assessment and Plan No Data Provided for This Section Plan of Care No Data Provided for This Section Social History Social History Date Source Social History TypeResponse 04/01/2016 [facility] Neri d Smoking Status Never smoker; Previous treatment: None; Concerns about tobacco use in household: No; Exposure to Tobacco Smoke None; Cigarette Smoking Last 365 Days Yes; Reg Smoking Cessation Counseling No Family History No Data Provided for This Section Advance Directives No Data Provided for This Section Functional Status No Data Provided for This Section
--- OUTSIDE RECORDS SUMMARY | 2020-04-02 13:13 | XMS REPORT | Summary of Care ---
:2000 [address] Organization [facility] Address [address] [place] [id number] Care Team Providers Name Role Phone Frank Banks MD Primary Care Provider Gloria Anaya MD Unavailable Unavailable Reason for Visit Reason Comments WEIGHT GAIN Allergies Encounter Details Date Type Department Care Team Description 01/25/2020 Telemedicine Visit [facility] Vicki Banks onal allergic rhinitis due to pollen (Primary Dx); Pediatric and Adult MD Frank Weight gain; Primary Care- [address] Overweight (BMI 25.0-29.9); [place], [place] Binge eating [address] [facility] [address] , [address] [place], [place] [phone] [address] (Fax) [phone] Allergies Active Allergy Reactions Severity Noted Date Comments Fosphenytoin Hives 12/04/2018 documented as of this encounter (statuses as of 01/25/2020) Medications Medication Sig Dispensed Refills Start Date End Date Status levonorgestrel by Intrauterine 0 Active (MIRENA INTRAUTERINE) route. ALPRAZolam 0.5 mg TK 1/2 T PO BID QD 0 07/12/2019 Active tablet PRN escitalopram oxalate Take by mouth. 0 Active (LEXAPRO ORAL) proMETHazine 12.5 mg Take 1 tablet by 12 tablet 0 08/22/2019 Active tabletIndications: mouth every 6 (six) Fever in adult hours as needed for Nausea and Vomiting (N/V). metroNIDAZOLE Take 1 tablet by 14 tablet 0 11/26/2019 Active (FLAGYL) 500 mg mouth 2 (two) times tabletIndications: BV daily with meals. (bacterial vaginosis) NUVARING 0.12-0.015 Insert 1 Each into 3 Each 4 12/31/2019 Active mg/24 hr vaginal vagina once every insertIndications: month. Insert Encounter for other vaginally and leave general counseling or in place for 3 advice on consecutive weeks, contraception then remove for 1 week. fluticasone Use 2 Sprays in 3 Bottle 3 01/25/2020 A ctive propionate 50 each nostril daily. mcg/actuation nasal sprayIndications: Seasonal allergic rhinitis due to pollen desloratadine 5 mg Take 1 tablet by 90 tablet 3 01/25/2020 Active disintegrating mouth daily. tabletIndications: Seasonal allergic rhinitis due to pollen documented as of this encounter (statuses as of 01/25/2020) Active Problems Problem Noted Date Seizures 12/04/2018 Overview: 07/08/19: Epilepsy vs pseudoseizures (wo rk-up is ongoing) H. pylori infection 11/25/2018 Weight loss 11/22/2018 Polyarthralgia 11/22/2018 Myalgia 11/22/2018 Uses vaginal contraceptive ring 06/12/2018 UTI (urinary tract infection) 05/05/2018 Chlamydia infection 03/16/2018 Suicidal thoughts 06/29/2017 History of depression 06/29/2017 Erosive esophagitis 06/20/2017 PCOS (polycystic ovarian syndrome) 06/19/2017 Endometriosis 06/19/2017 Chronic diarrhea 02/18/2017 Epigastric abdominal pain 02/18/2017 Iron deficiency anemia 12/12/2016 Vitamin D deficiency 12/12/2016 Major depressive disorder with current active episode 12/11/2016 History of bipolar disorder 12/11/2016 Anxiety disorder, unspecified type 12/11/2016 Chronic fatigue 12/11/2016 Allergic conjunctivitis Allergic rhinitis Vesicoureteral reflux History of pseudoseizure documented as of this encounter (statuses as of 01/25/2020) Resolved Problems Problem Noted Date Resolved Date Epilepsy 11/27/2018 07/18/2019 documented as of this encounter (statuses as of 01/25/2020) Immunizations Name Administration Dates Next Due DTAP 10/30/2010, 10/04/2002, 06/29/2001, 11/04/2000 DTP 10/04/2002, 06/29/2001, 11/04/2000, 04/04/1999 HIB 3 Dose Schedule 10/04/2002, 11/04/2000, 04/04/1999 HPV 06/17/2012, 09/12/2011, 01/21/2011 Hep B, Adol or Pedi Dosage 11/04/2000, 04/04/1999, 8 Hepatitis A Adult 06/17/2012, 01/21/2011 IPV 10/04/2002, 06/29/2001, 11/04/2000, 04/04/1999 Influenza Virus Vaccine Quad IM 3+ YRS 05/30/2015 MMR 10/04/2002, 06/29/2001 Meningococcal Polysaccharide (groups 05/30/2015 A, C, Y and W-135) conjugate vaccine (MCV4P) Td 03/21/2018 Tdap 10/30/2010 Varicella (varivax)(chicken pox) 06/29/2001 documented as of this encounter Social History Tobacco Use Types Packs/Day Years Used Date Never Smoker Smokeless Tobacco: Never Used Alcohol Use Drinks/Week oz/Week Comments Not Currently 2-3 Shots of liquor 2.0 - 3.0 Sex Assigned at Date Recorded Not on file Job Start Date Occupation Industry Not on file Not on file Not on file Travel History Travel Start Travel End No recent travel history available. documented as of this encounter Last Filed Vital Signs Vital Sign Reading Time Taken Comments Blood Pressure - - Pulse - - Temperature - - Respiratory Rate - - Oxygen Saturation - - Inhaled Oxygen Concentration - - Weight 72.6 kg (160 lb) 01/25/2020 4:23 PM CDT Height - - Body Mass Index 27.46 11/23/2019 1:04 PM CDT documented in this encounter Patient Instructions Patient InstructionsChela Bobby R - 01/25/2020 4:15 PM CDT Patient Education Coronavirus Disease 2019 (COVID-19): Prevention The best prevention is to not have contact with the SARS-CoV-2 virus. There is no vaccine yet. Canceling travel and other outings Stay informed about COVID-19 in your area. Follow local instructions about being in public. Be awareof events in your community that may be postponed or canceled, such as school and sporting events. You may be advised not to attend public gatherings. You will be advised to stay at least 6 feet from others as much as possible. This is called "social distancing." You may be advised to stay at home and isolate yourself as much as possible if COVID-19 is in your area. You may hear terms such as "self isolate, "quarantine," stay at home, skilled nursing in place, and lockdown. The CDC advises that people should not travel to areas where there are COVID-19 outbreaks right now for any reason that is not urgent. For the most current CDC travel advisories, visit the CDC website at www.cdc.gov/coronavirus/2019- ncov/travelers.Dont go on cruises or do non-essential travel right now. When you are at home Wash your hands often. Use soap and clean, running water for at least 20 seconds. If you don't have access to soap and water, use an alcohol-based hand lap layer often. Make sure it has at least 60% alcohol. Don't touch your eyes, nose, or mouth unless you have clean hands. Dont kiss someone who is sick. If you need to cough or sneeze, do it into a tissue. Then throw the tissue into the trash. If youdon't have tissues, cough or sneeze into the bend of your elbow. When possible, don't touch "high-touch" shared surfaces such as doorknobs and handles, cabinet handles, and light switches. Clean frequently-touched home surfaces often with disinfectant. This includes desk surfaces, printers, phones, kitchen counters, tables, fridge door handle, bathroom surfaces, and any soiled surface. Closely follow disinfectant label instructions. Go to the CDCs detailed cleaning website at www.c dc.gov/coronavirus/2019-ncov/prepare/cleaning-disinfection.html. Check your home supplies. Consider keeping a 2-week supply of medicines, food, and other needed household items. Make a plan for childcare, work, and ways to stay in touch with others. Know who will help you ifyou get sick. Don't be around people who are sick. There is no evidence right now that animals spread SARS-CoV-2. But it's always a good idea to wash your hands after touching any animals. Don't touch animals that may be sick. Dont share eating or drinking utensils with sick people. If you leave home Stay at least 6 feet away from all people. When possible, don't touch "high-touch" public surfaces such as doorknobs and handles, cabinet handles, and light switches. If you touch these surfaces, try to clean them first with a disinfecting wipe. Or touch them using a tissue or paper towel. Use an alcohol-based hand lap layer often. Make sure it has at least 60% alcohol. Don't touch your eyes, nose, or mouth unless you have clean hands. If you need to cough or sneeze, do it into a tissue. Then throw the tissue into the trash. If youdon't have tissues, cough or sneeze into the bend of your elbow. Avoid public gatherings. The CDC advises wearing a cloth face mask in public. During a public health emergency, medical face masks may be reserved for healthcare workers. You may need to make a cloth face mask of your own. You can do this using a bandana, T- shirt, or other cloth. The CDC has instructions on how to make a mask. If you are at a work site Stay at least 6 feet away from all people. Don't shake hands with anyone. Dont have in-person meetings. Meet over phone or video. Wash your hands often. Use soap and clean, running water for at least 20 seconds. If you don't have access to soap and water, use an alcohol-based hand lap layer often. Make sure it has at least 60% alcohol. Don't touch your eyes, nose, or mouth unless you have clean hands. The CDC advises wearing a cloth face mask in public. During a public health emergency, medical face masks may be reserved for healthcare workers. You may need to make a cloth face mask of your own. You can do this using a bandana, T- shirt, or other cloth. The CDC has instructions on how to make a mask. When possible, don't touch "high-touch" public surfaces such as doorknobs and handles, cabinet handles, and light switches. If you touch these surfaces, clean them first with a disinfecting wipe. Ortouch them using a tissue or paper towel. Use office doug one person at a time. Consider not having office coffee or tea, or group foods. Dont have meals in groups. Clean work surfaces often with disinfectant. This includes desk surfaces, photocopier, printer, phones, kitchen counters, fridge door handle, bathroom surfaces, and others. Dont touch other peoples personal work tools, such as phones, keyboards, pens, and other items. Dont touch other peoples eating or drinking utensils. If you need to cough or sneeze, do it into a tissue. Then throw the tissue into the trash. If youdon't have tissues, cough or sneeze into the bend of your elbow. If you feel sick in any way, go home and stay home. If you have been exposed to a person with COVID-19 If you've been exposed within that last 14 days to someone who is suspected of having COVID-19 or has tested positive for it: Call your healthcare provider and follow all instructions. Your activities and where you go likely will be restricted for up to 2 weeks. Check your community's instructions about activity restrictions. You may be directed to stay home, or "self-isolate." Take your temperature every morning and evening for at least 14 days. This is to check for fever.Keep a record of the readings. Watch for symptoms of the virus. Call your provider if you have symptoms. Call your provider first before going to any clinic or hospital. See the CDC's symptom tip length checker. Stay home if you are sick for any reason. When to call your healthcare provider Call your healthcare provider if think you have COVID-19 symptoms. These can include fever, cough, and trouble breathing. They may also include body aches, sore throat, or diarrhea. Dont go to a healthcare facility before speaking to a healthcare provider. Last modified date: 12/06/2019 [email or web address] last reviewed this educational content on 12/01/201919996225-4494 [employer]. [address] [place] [address], [place] [address]. All rights reserved. This information is not intended as a substitute for professional medical care. Always follow your healthcare professional's instructions. documented in this encounter Progress Notes Vicki Banks MD - 01/25/2020 4:15 PM CDT TELEHEALTH NOTE Verbal consent obtained from Patient: Jen Tavarez due to the COVID-19 pandemic for telehealth services provided below. Communication with patient was conducted via Video Call. Location of Patient: Driving in her car Location of Provider: Office Date of Service: 01/25/2020 CC: Chief Complaint Patient presents with WEIGHT GAIN Allergies HPI Jen Tavarez is a 19 year old female who participated in a Telehealth visit today for weight gain and allergies. She says she has gained 30 lbs over the past 6 months and that her current weight is 160 lbs. She is seeing a Psychiatrist regularly and says during their consultation this morning, he recommended that she try phentermine to help her control her appetite because he suspects she has an eating disorder. He says if she fails phentermine, he will prescribe Vyvanse. Per the patient he told her to get the phentermine Rx from her PCP. She admits to uncontrolled overeating and feels she needs help. She also c/o nasal allergy symptoms for the past couple of months that worsened about 2 weeks ago but have improved over the past 3 days. She c/o clear rhinorrhea, congestion, sneezing, sinus pressure(mild), and postnasal drainage. OTC medications have helped her symptoms somewhat but she requests something for her allergies by prescription for cost savings. She denies f/c/s, cough, SOB, loss of taste or smell, abdominal pain or diarrhea, conjunctivitis symptoms, sore throat, headaches, or myalgias. She was offered COVID-19 testing last week but refused. Allergies Allergen Reactions Cerebyx [Fosphenytoin] Hives Current Outpatient Medications on File Prior to Visit Medication Sig Dispense Refill NUVARING 0.12-0.015 mg/24 hr vaginal insert Insert 1 Each into vagina once every month. Insert vaginally and leave in place for 3 consecutive weeks, then remove for 1 week. 3 Each 4 metroNIDAZOLE (FLAGYL) 500 mg tablet Take 1 tablet by mouth 2 (two) times daily with meals. 14 tablet 0 proMETHazine 12.5 mg tablet Take 1 tablet by mouth every 6 (six) hours as needed for Nausea and Vomiting (N/V). 12 tablet 0 ALPRAZolam 0.5 mg tablet TK 1/2 T PO BID QD PRN 0 escitalopram oxalate (LEXAPRO ORAL) Take by mouth. levonorgestrel (MIRENA INTRAUTERINE) by Intrauterine route. No current facility-administered medications on file prior to visit. Past Medical History: Diagnosis Date Abnormal uterine bleeding Allergic conjunctivitis Allergic rhinitis Anemia Anxiety Chlamydia infection 03/16/2018 Depression Endometriosis Epilepsy 11/27/2018 Erosive esophagitis Esophageal reflux H. pylori infection 11/25/2018 History of iron deficiency History of non anemic vitamin B12 deficiency History of pseudoseizure IBS (irritable bowel syndrome) Kidney disease Menstrual disorder PCOS (polycystic ovarian syndrome) PID (pelvic inflammatory disease) Polycystic ovarian syndrome 2011 PTSD (post-traumatic stress disorder) Vesicoureteral reflux No past surgical history on file. Family History Problem Relation Age of Onset Other - see comments Mother spina bifida, multiple system atrophy, pituitary tumor Osteoporosis Mother Neurological Mother CVA, Seizures Heart Father No Significant Medical Problems Sister Other - see comments Brother pectus excavatum Other - see comments Brother spina bifida Heart Paternal Uncle Breast Cancer Maternal Grandmother Heart Maternal Grandfather Hypertension Maternal Grandfather High cholesterol Maternal Grandfather Ovarian Cancer Paternal Grandmother Colon Cancer NoFHx Other - see comments Mother osteoporosis, msa, mental, spina biphida Social History Socioeconomic History Marital status: Spouse name: Not on file Number of children: Not on file Years of education: Not on file Highest education level: Not on file Occupational History Not on file Social Needs Financial resource strain: Not on file Food insecurity: Worry: Not on file Inability: Not on file Transportation needs: Medical: Not on file Non-medical: Not on file Tobacco Use Smoking status: Never Smoker Smokeless tobacco: Never Used Substance and Sexual Activity Alcohol use: Not Currently Alcohol/week: 2.0 - 3.0 standard drinks Types: 2 - 3 Shots of liquor per week Drug use: No Sexual activity: Yes Partners: Male control/protection: IUD Comment: mirena Lifestyle Physical activity: Days per week: Not on file Minutes per session: Not on file Stress: Not on file Relationships Social connections: Talks on phone: Not on file Gets together: Not on file Attends christianity service: Not on file Active member of club or organization: Not on file Attends meetings of clubs or organizations: Not on file Relationship status: Not on file Intimate partner violence: Fear of current or ex partner: Not on file Emotionally abused: Not on file Physically abused: Not on file Forced sexual activity: Not on file Other Topics Concern Not on file Social History Narrative Merged History Encounter She recently left her due to alleged infidelity. She has her young son with her. She is not working currently. She denies domestic violence. Review of Systems Constitutional: Positive for unexpected weight change and weight gain. HENT: Positive for congestion, rhinorrhea, sinus pressure and sneezing. Eyes: Negative. Respiratory: Negative. Cardiovascular: Negative. Gastrointestinal: Negative. Genitourinary: Negative. Musculoskeletal: Negative. Skin: Negative. Neurological: Negative. Psychiatric/Behavioral: + binge-eating Endocrine: Endocrine negativePositive for weight gain. Vital signs Level of pain 0. Physical Exam Constitutional: She is oriented to person, place, and time. She appears well- developed and well-nourished. No distress. Pulmonary/Chest: Effort normal. No stridor. No respiratory distress. No audible adventitious breath sounds Neurological: She is alert and oriented to person, place, and time. Skin: No rash noted. No pallor. Psychiatric: She has a normal mood and affect. Her speech is normal and behavior is normal. Judgmentand thought content normal. Her mood appears not anxious. Thought content is not paranoid and not delusional. Cognition and memory are normal. She does not exhibit a depressed mood. She expresses no homicidal and no suicidal ideation. LABS: CBC CMP WBC-LC (x10E3/uL) Date Value 12/10/2016 7.1 WBC (10*3/L) Date Value 04/01/2019 6.24 NA (mmol/L) Date Value 04/01/2019 143 Sodium, Serum-LC (mmol/L) Date Value 12/10/2016 139 RBC-LC (x10E6/uL) Date Value 12/10/2016 4.19 RBC (10*6/L) Date Value 04/01/2019 4.32 K (mmol/L) Date Value 04/01/2019 3.8 Potassium, Serum-LC (mmol/L) Date Value 12/10/2016 4.9 Platelets-LC (x10E3/uL) Date Value 12/10/2016 438 (H) PLT (10*3/L) Date Value 04/01/2019 355 CALCIUM (mg/dL) Date Value 04/01/2019 8.9 Calcium, Serum-LC (mg/dL) Date Value 12/10/2016 8.8 HGB (g/dL) Date Value 04/01/2019 12.1 Hemoglobin-LC (g/dL) Date Value 12/10/2016 9.8 (L) CL (mmol/L) Date Value 04/01/2019 106 Chloride, Serum-LC (mmol/L) Date Value 12/10/2016 102 HCT (%) Date Value 04/01/2019 37.7 Hematocrit-LC (%) Date Value 12/10/2016 30.9 (L) BUN (mg/dL) Date Value 04/01/2019 9 BUN-LC (mg/dL) Date Value 12/10/2016 10 LIPID PANEL CREATININE (mg/dL) Date Value 04/01/2019 0.63 Creatinine, Serum-LC (mg/dL) Date Value 12/10/2016 0.54 (L) No results found for: CHOL GLUCOSE (mg/dL) Date Value 04/01/2019 78 Glucose, Serum-LC (mg/dL) Date Value 12/10/2016 84 No results found for: LDL CO2 TOTAL (mmol/L) Date Value 04/01/2019 27 Carbon Dioxide, Total-LC (mmol/L) Date Value 12/10/2016 23 No results found for: HDL ALBUMIN Date Value Ref Range Status 04/01/2019 4.4 3.5 - 5.0 g/dL Final Albumin, Serum-LC Date Value Ref Range Status 12/10/2016 4.2 3.5 - 5.5 g/dL Final No results found for: TRIG T PROTEIN Date Value Ref Range Status 04/01/2019 8.0 6.3 - 8.2 g/dL Final Protein, Total, Serum-LC Date Value Ref Range Status 12/10/2016 6.8 6.0 - 8.5 g/dL Final TSH TOTAL BILI Date Value Ref Range Status 04/01/2019 0.4 0.1 - 1.1 mg/dL Final TSH (mIU/L) Date Value 05/11/2019 1.14 TSH-LC (uIU/mL) Date Value 06/19/2017 1.370 No components found for: BILIUNCOM BILI CONJ Date Value Ref Range Status 04/01/2019 0.0 0.0 - 0.3 mg/dL Final ALT(SGPT) Date Value Ref Range Status 04/01/2019 9 9 - 51 U/L Final ALT (SGPT)-LC Date Value Ref Range Status 12/10/2016 10 0 - 32 IU/L Final AST(SGOT) Date Value Ref Range Status 04/01/2019 21 13 - 40 U/L Final AST (SGOT)-LC Date Value Ref Range Status 12/10/2016 13 0 - 40 IU/L Final ALK PHOS Date Value Ref Range Status 04/01/2019 68 34 - 122 U/L Final Alkaline Phosphatase, S-LC Date Value Ref Range Status 12/10/2016 76 43 - 101 IU/L Final ASSESSMENT/PLAN Diagnoses and all orders for this visit: Weight gain, Binge eating, Overweight (BMI 25.0-29.9) Management should be per Psychiatry and I don't feel an Rx for phentermine is appropriate in her case. I warned the patient about the potential side effects of this medication including its habit-forming potential. She should follow-up with Psychiatry for pharmacotherapy to address her binge-eating if appropriate. The patient voiced understanding. A healthy diet and regular exercise were encouraged. Seasonal allergic rhinitis due to pollen Start nasal steroid and oral antihistamine therapy as noted. Mucinex max strength 1200mg tabs [id number] congestion for mucolytic and expectorant action. The patient was advised to stay hydrated to aid in clearance of secretions. Recommended avoidance of allergic triggers whenever possible. We reviewed tips for controlling allergens in the patient's environment. She really doesn't qualify for COVID-19 testing through a Tier 1 site based on her current symptoms and furthermore she declines testing. - fluticasone propionate 50 mcg/actuation nasal spray; Use 2 Sprays in each nostril daily. - desloratadine 5 mg disintegrating tablet; Take 1 tablet by mouth daily. Plan of care, desired health behaviors, goals, Ddx, and any prescribed medications were discussed with the patient. Education resources and self- management tools were provided in the After Visit Summary (AVS) which is accessible through [employer]. A total of 15 minutes was spent on the Video Call, chart review, and coordination of care with specialists. Patient/guardian/family verbalized understanding and agrees to the plan of care. Barriers to care: None. Ability to manage care: Good. Advanced care planning (living will) information was not given/offered to the patient to review for discussion at a future visit. If applicable, the [facility] database was accessed to review any controlled substance prescription claims data. If the patient is taking prescribed medications, the [employer] prescription claims data in [facility] was reviewed to assess patient compliance with the medication treatment plan. COVID-19 precautions given including frequent handwashing, social distancing, cleaning and disinfecting, indications for testing, etc. Follow-up: Return if symptoms worsen or fail to improve. Return for routine care as scheduled or previously advised. Scribe Attestation Chela Peralta , am scribing for, and in the presence of, Vicki Banks MD who performed the services described here-in. Chela Bobby, January 25, 2020, 2:53 PM Physician Attestation Fabian, Vicki Banks MD, personally performed the services described in this documentation , as scribed by, Chela Bobby in my presence and it is both accurate and complete. Vicki Banks MD January 25, 2020, 2:53 PM documented in this encounter Plan of Treatment Date Type Specialty Care Team Description 03/03/2020 Telemedicine Visit Lisa Ruff MD Gynecology [address] [place] [id number] 08/18/2020 Office Visit Carlota Ruff MD Gynecology [address] [place] [phone] Health Maintenance Due Date Last Done Comments VARICELLA VACCINES (2 of 2 - 2002 06/29/2001 2-dose childhood series) MENINGOCOCCAL B VACCINES (1 2008 of 2 - Risk Bexsero 2-dose series) INFLUENZA VACCINE (Season 05/02/2020 05/30/2015 Ended) WELL CARE VISIT: 12-21 YEARS 08/18/2020 08/18/2019, 019, (yearly) 05/30/2015 CHLAMYDIA SCREENING 10/31/2020 11/01/2019, 10/15/2019, 08/18/2019, Additional history exists PAP SMEAR 08/18/2022 08/18/2019 DTaP,Tdap,and Td Vaccines (7 03/21/2028 03/21/2018, 011, - Tdap) 10/30/2010, Additional history exists HPV VACCINES Completed 06/17/2012, 09/12/2011, 01/21/2011 MENINGOCOCCAL VACCINE Completed 05/30/2015 PNEUMOCOCCAL 0-64 YEARS Aged Out No longe r eligible COMBINED SERIES based on patient 's age to complete this topic documented as of this encounter Results Not on filedocumented in this encounter Visit Diagnoses Diagnosis Seasonal allergic rhinitis due to pollen - Primary Weight gain Abnormal weight gain Overweight (BMI 25.0-29.9) Overweight Binge eating Anorexia nervosa documented in this encounter Insurance Payer Benefit Plan Subscriber ID Effective Dates Phone Address Type / Group [id number]-Magda [phone] [address] PPO/POS [place] t 7 [id number] [place] [address] documented as of this encounter
--- OUTSIDE RECORDS SUMMARY | 2020-04-02 13:13 | XMS REPORT | Summary of Care ---
:1998 Author Organization [facility] Address [address] [place] [address] Care Team Providers Name Role Phone Frank Banks MD Primary Care Provider Gloria Anaya MD Unavailable Unavailable Reason for Visit Reason Comments Notification Encounter Details Date Type Department Care Team Description 02/08/2020 Telephone [facility] Family Medicine Vicki Jung MD Notification - [address] [place] [address] [place] [address] [place] [address] [phone] Allergies Active Allergy Reactions Severity Noted Date Comments Fosphenytoin Hives 12/04/2018 documented as of this encounter (statuses as of 02/10/2020) Medications Medication Sig Dispensed Refills Start Date [...] as of this encounter (statuses as of 02/10/2020) Active Problems Problem Noted Date Seizures 12/04/2018 [...] as of this encounter (statuses as of 02/10/2020) Resolved Problems Problem Noted Date Resolved Date Epilepsy 11/27/2018 07/18/2019 documented as of this encounter (statuses as of 02/10/2020) Immunizations Name Administration Dates Next Due DTAP [...] Travel End No recent travel history available. COVID-19 Exposure Response Date Recorded In the last month, have you been in contact with No / Unsure 02/08/2020 6:59 PM CDT someone who was confirmed or suspected to have Coronavirus / COVID-19? documented as of this encounter Last Filed Vital Signs Not on filedocumented in this encounter Plan of Treatment Date Type Specialty Care Team Description 03/03/2020 Telemedicine Visit Obstetrics Lisa Roper MD Gynecology [address] [place] [phone] 08/18/2020 Office Visit Obstetrics Carlota Roper MD Gynecology [address] [place] [phone] [phone] Health Maintenance Due Date Last Done Comments VARICELLA VACCINES (2 of 2 - 2002 06/29/2001 2-dose childhood series) MENINGOCOCCAL B VACCINES (1 2008 of 2 - Risk Bexsero 2-dose series) INFLUENZA VACCINE (Season 05/02/2020 05/30/2015 Ended) WELL CARE VISIT: 12-21 YEARS 08/18/2020 08/18/2019, 019, (yearly) 05/30/2015 CHLAMYDIA SCREENING 10/31/2020 11/01/2019, 10/15/2019, 08/18/2019, Additional history exists Depression Screening 11/22/2020 11/23/2019 PAP SMEAR 08/18/2022 08/18/2019 DTaP,Tdap,and Td Vaccines (7 03/21/2028 03/21/2018, 011, - Tdap) 10/30/2010, Additional history exists HPV VACCINES Completed 06/17/2012, 09/12/2011, 01/21/2011 MENINGOCOCCAL VACCINE Completed 05/30/2015 PNEUMOCOCCAL 0-64 YEARS Aged Out No longe r eligible COMBINED SERIES based on patient 's age to complete this topic documented as of this encounter Results Not on filedocumented in this encounter Insurance Payer Benefit Plan Subscriber ID Effective Dates Phone Address Type / Group BCBS OF [employer] [facility] [place] [id number] 2018-Magda [phone] [address] PPO/POS [place] t 7 [id number] [place] [address] documented as of this encounter
--- OUTSIDE RECORDS SUMMARY | 2020-04-02 13:13 | XMS REPORT | Summary of Care ---
:1998 Author Organization [facility] Address [address] [place] [address] Care Team Providers Name Role Phone Frank Banks MD Primary Care Provider Gloria Anaya MD Unavailable Unavailable Encounter Details Date Type Department Care Team Description 01/20/2020 Patient Secure [facility] Family Cullen Banks [address] [address] [place], [place] [phone] Allergies Active Allergy Reactions Severity Noted Date [...] weeks, contraception then remove for 1 week. documented as of this encounter (statuses as [...] Treatment Date Type Specialty Care Team Description 01/25/2020 Office Visit Family Medicine Vicki Banks MD [address] [place] [phone] 03/03/2020 Telemedicine Visit Obstetrics & Lisa Powell MD Gynecology [address] [place] [phone] 08/18/2020 Office Visit Obstetrics & Carlota Powell MD Gynecology [address] [place] [phone] Health Maintenance Due Date Last Done Comments [...] Phone Address Type / Group [facility] [id number] 2018-Magda [phone] [address] PPO/POS [place] t 7 [id number] [place] [address] documented as of this encounter
--- OUTSIDE RECORDS SUMMARY | 2020-04-02 13:14 | XMS REPORT | Summary of Care ---
:[address] [facility] Address [address] [place] [address] Care Team Providers Name Role Phone Frank Banks MD Primary Care Provider Gloria Anaya MD Unavailable Unavailable Encounter Details Date Type Department Care Team Description 03/09/[address] [facility] Doctor Unassigned, No [address] [facility] [place] [address] [address] [place] [phone] Allergies Active Allergy Reactions Severity Noted Date Comments Fosphenytoin Hives 12/04/2018 documented as of this encounter (statuses as of 03/09/2020) Medications Medication Sig Dispensed Refills Start Date [...] as of this encounter (statuses as of 03/09/2020) Active Problems Problem Noted Date Seizures 12/04/2018 [...] as of this encounter (statuses as of 03/09/2020) Resolved Problems Problem Noted Date Resolved Date Epilepsy 11/27/2018 07/18/2019 documented as of this encounter (statuses as of 03/09/2020) Immunizations Name Administration Dates Next Due DTAP [...] C, Y and W-135) conjugate vaccine (MCV4P) TDAP 10/30/2010 Td 03/21/2018 Varicella (varivax)(chicken pox) 06/29/2001 documented as of [...] been in contact with No / Unsure 03/03/2020 4:01 PM CDT someone who was confirmed or suspected to have Coronavirus / COVID-19? documented as of this encounter Last Filed Vital Signs Not on filedocumented in this encounter Plan of Treatment Date Type Specialty Care Team Description 08/18/2020 Office Visit Obstetrics & Gynecology Adum, Mikala Gonzalez MD [address] [place] [address] Dr. Gambino [address] [place] [phone] Health Maintenance Due Date Last Done Comments VARICELLA VACCINES (2 of 2 - 2002 06/29/2001 2-dose childhood series) MENINGOCOCCAL B VACCINES (1 2008 of 2 - Risk Bexsero 2-dose series) INFLUENZA VACCINE (#1) 2020 05/30/2015 WELL CARE VISIT: 12-21 YEARS 08/18/2020 08/18/2019, [...] this topic documented as of this encounter Procedures Procedure Name Priority Date/Time Associated Diagnosis Comme nts CONSENT/REFUSAL FOR Routine 03/09/2020 11:26 AM CDT DIAGNOSIS AND TREATMENT documented in this encounter Results Not on filedocumented in this encounter Insurance Payer Benefit Plan Subscriber ID Effective Dates Phone Address Type / Group [place] [employer] [facility] [place] [id number] 2018-Magda [phone] [address] PPO/POS [place] t 7 [id number] [place] [address] documented as of this encounter
--- OUTSIDE RECORDS SUMMARY | 2020-04-02 13:14 | XMS REPORT | Summary of Care ---
:1998 Author Organization [facility] Address [address] [place] [address] Care Team Providers Name Role Phone Frank Banks MD Primary Care Provider Gloria Anaya MD Unavailable Unavailable Reason for Visit Reason Comments IRREGULAR CYCLE Encounter Details Date Type Department Care Team Description 03/03/2020 Office Visit [facility] Women's AdumReena MD Irregular periods/menstrual cycles (Prim bandar Dx); Healthcare- [address] Encounter for IUD removal [address] [place] [address], [address] [place] [phone] Allergies Active Allergy Reactions Severity Noted Date Comments Fosphenytoin Hives 12/04/2018 documented as of this encounter (statuses as of 03/04/2020) Medications Medication Sig Dispensed Refills Start Date [...] as of this encounter (statuses as of 03/04/2020) Active Problems Problem Noted Date Seizures 12/04/2018 [...] as of this encounter (statuses as of 03/04/2020) Resolved Problems Problem Noted Date Resolved Date Epilepsy 11/27/2018 07/18/2019 documented as of this encounter (statuses as of 03/04/2020) Immunizations Name Administration Dates Next Due DTAP [...] Sign Reading Time Taken Comments Blood Pressure 123/80 03/03/2020 4:20 PM CDT Pulse 87 03/03/2020 4:20 PM CDT Temperature 36.9 C (98.5 F) 03/03/2020 4:20 PM CDT Respiratory Rate 18 03/03/2020 4:20 PM CDT Oxygen Saturation - - Inhaled Oxygen Concentration - - Weight 68.9 kg (152 lb) 03/03/2020 4:20 PM CDT Height 162.6 cm (5' 4") 03/03/2020 4:20 PM CDT Body Mass Index 26.09 03/03/2020 4:20 PM CDT documented in this encounter Patient Instructions Patient InstructionsYomaira Carney MA - 03/03/2020 4:00 PM CDT Patient Education Dysfunctional Uterine Bleeding Dysfunctional uterine bleeding, also called abnormal uterine bleeding, is a condition in which bleeding is abnormaland occurs at unexpected times of the month. This happens because of changes in the hormones that help control a womans menstrual cycle each month. The bleeding may be heavier or tassel snipper than normal. If you have heavy bleeding often, this can lead to a problem called anemia.With anemia, your red blood cell count is too low. Red blood cells help carry oxygen throughout your body.Severe anemia may cause you to look pale and feel very weak or tired. You might also become short of breath easily. To treat dysfunctional uterine bleeding, medicines are often tried first. If these dont help, or if you have additional symptoms or have reached menopause, further testing and treatments may be needed. Discuss all of your options with your provider. Home care Medicines If youre prescribed medicines, be sure to take them as directed. Some of the more common medicines you may be prescribed include: Hormone therapy (Options include most methods of hormonal control such as pills, shots, or a hormone-releasing IUD) Nonsteroidal anti-inflammatory drugs (NSAIDs), such as ibuprofen Iron supplements, if you have anemia General care Get plenty of rest if you tire easily. Avoid heavy exertion. To help relieve pain or cramping that may occur with bleeding, try using a heating pad on the lower belly or back. A warm bath may also help. Follow-up care Follow up with your healthcare provider, or as directed. When to seek medical advice Call your healthcare provider right away if: Bleeding becomes heavy (soaking 1 pad or tampon every hour for 3 hours) Increased abdominal pain Irregular bleeding worsens or does not get better even with treatment Fever of 100.4F (38C) or higher, or as directed by your provider Signs of anemia, such as pale skin, extreme fatigue or weakness, or shortness of breath Dizziness or fainting [employer] last reviewed this educational content on 07/02/201719998440-6862 [employer]. [address] [place] [address], [place] [address]. All rights reserved. This information is not intended as a substitute for professional medical care. Always follow your healthcare professional's instructions. Patient Education Understanding Uterine Bleeding Your uterine bleeding may be heavy. Or you may have bleeding between periods. These problems may be caused by hormonal imbalance. Or they can be caused by uterine growths, an intrauterine device (IUD),bleeding disorder, or . Hormonal imbalance Your menstrual cycle is controlled by hormones. The hormones include estrogen and progesterone. Sometimes there is too much or too little ofone or both of these hormones, causing an imbalance. This can cause heavy periods. Or it can cause bleeding between periods. Causes of hormonal imbalance can include: Hormonal changes in teens and in women nearing menopause Diabetes, thyroid disease, or other medical problems Obesity Stress Strenuous exercise Anorexia, an eating disorder Uterine growths There are different kinds of uterine growths. These include: Fibroids. These are round knots of noncancer (benign) muscle tissue in the uterus. Polyps. These are soft tissue growths in the uterine lining. They often extend into the uterus. Adenomyosis. This is when the uterine lining grows into the muscle wall. Hyperplasia. This is when the uterine lining gets too thick or grows too much. Endometrial cancer. This is uncontrolled growth of part of the uterine lining. Other causes of uterine bleeding There are other causes of uterine bleeding. These include: IUD (intrauterine device). This is a method of control. Some IUDs contain hormones. Bleeding disorders. This is when the blood can't clot properly. Treatment Your healthcare provider can help diagnose the cause of your bleeding problem. He or she will work with you to plan treatment as needed. Marcandi last reviewed this educational content on 01/30/201719995041-7396 [employer]. [address] [place] [address]. All rights reserved. This information is not intended as a substitute for professional medical care. Always follow your healthcare professional's instructions. documented in this encounter Progress Notes Reena Argueta MD - 03/03/2020 4:00 PM CDT Chief complaint: Chief Complaint Patient presents with IRREGULAR CYCLE 19 year-old presents to discuss continual bothersome bleeding pattern since insertion of her Mirena IUD in Jun. She reports that post insertion she continued to bleed and was then started on continuous Nuvaring to control the bleeding in Aug, this strategy was initially effective for at least 4 months or so but unfortunately her abnormal bleeding pattern has returned worst than before. She gets periods twice a week and also spots inbetween.She has been screened on numerous occasion for infection with negative results and recent pelvic sonogram was normal showing that the IUD was located appropriately in the uterus. Blood work were also normal. She is frustrated with this bleeding and like to do something about it Histories OB History Para Term AB Living 2 1 1 0 1 1 SAB TAB Ectopic Multiple Live Births 1 0 0 1 # Outcome Date GA Lbr Mati/2nd Weight Sex Delivery Anes PTL Lv 2 SAB 2018 1 Term 2017 7 lb 1 oz (3.204 kg) M NORMAL SPONT CANELO Past Medical History: Diagnosis Date Abnormal uterine [...] 2011 PTSD (post-traumatic stress disorder) Vesicoureteral reflux Family History Problem Relation Age of Onset [...] comments Mother osteoporosis, msa, mental, spina biphida Family Status Relation Name Status Mo Alive Fa Alive Sis Alive Bro Alive Bro (Not Specified) PUnc (Not Specified) MGMo (Not Specified) MGFa (Not Specified) PGMo (Not Specified) NoFHx (Not Specified) Mo (Not Specified) History reviewed. No pertinent surgical history. Social History Socioeconomic History Marital status: Spouse [...] activity: Yes Partners: Male control/protection: IUD Comment: leo Lifestyle Physical activity: Days per week: Not on file Minutes per session: Not on file Stress: Not on file Relationships Social connections: Talks on phone: Not on file Gets together: Not on file Attends pentecostal service: Not on file Active member of [...] not working currently. She denies domestic violence. Social History Substance and Sexual Activity Sexual Activity Yes Partners: Male control/protection: IUD Comment: leo Labs No new labs. I reviewed her old lab results Radiology No new radiology. Reviewed previous pelvic sonogram Allergies Jen is allergic to cerebyx [fosphenytoin]. Medications Jen has a current medication list which includes the following prescription(s): desloratadine, nuvaring, fluticasone propionate, metronidazole, promethazine, alprazolam, escitalopram oxalate, and levonorgestrel. Review of Systems Constitutional: Negative. HENT: Negative. Eyes: Negative. Respiratory: Negative. Breasts: Negative. Cardiovascular: Negative. Gastrointestinal: Negative. Genitourinary: Positive for vaginal bleeding and menstrual problem. Negative for vaginal discharge and vaginal pain. Musculoskeletal: Negative. Skin: Negative. Neurological: Negative. Psychiatric/Behavioral: Negative. Endocrine: Endocrine negative BP 123/80 (BP Location: Left arm, Patient Position: Sitting, BP CUFF SIZE: Adult Medium) | Pulse 87 | Temp 36.9 C (98.5 F) (Oral) | Resp 18 | Ht 5' 4" (1.626 m) | Wt 152 lb (68.9 kg) | BMI 26.09 kg/m Pregravid BMI: Could not be calculated Physical Exam Vitals reviewed. Constitutional: She is oriented to person, place, and time. She appears well- developed and well-groomed. Abdominal: Abdomen is soft. No mass palpated. No tenderness present. There is no rigidity and no guarding. Neuro/Psychiatric: She has a normal mood and affect. She is oriented to person, place, and time. External genitalia: Normal external genitalia appropriate for age. Vagina:No lesion inspected. Normal estrogen effect. No abnormal vaginal discharge (scanty amout of blood) found. NuvaRing palpable Cervix: No lesion. No tenderness and no discharge present. IUD string visible Uterus: Uterus is normal size, normal contour, normal position and non-tender. Adnexa: Right adnexa without tenderness, ovary enlargement or mass. Left adnexa without tenderness, ovary enlargement or mass. IUD REMOVAL PROCEDURE NOTE Preoperative Diagnoses: Desires removal of IUD for irregular bleeding The risks, benefits and alternatives were discussed. The patient voiced her understanding. She wished to proceed and an informed consent was obtained. Patient has been identified by name and and will be undergoing IUD removal. Patient, procedure and site have been confirmed by the following clinicians: Reena Argueta MD Timeout performed by Reena Argueta MD at 1650hrs. Procedure: The patient is placed on the exam table in a lithotomy position. Vaginal speculum inserted. The cervix and IUD strings are visualized. IUD strings are grasped with the ring forceps and the IUD was removed without difficulty, showed to the patient and discarded. The patient tolerated the pro cedure well and there were no complications. Post-procedure instructions given. Patient verbalized understanding. Findings Intact IUD Assessment/Plan Irregular periods/menstrual cycles (primary encounter diagnosis) Comment: I explained that her bleeding pattern is due to her IUD- unfortunately some people have a more prolonged pattern of irregular cycles on the Mirena. 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 Another option would be to remove the IUD and continue to use just the NuvaRing for both BC and to control her PCOS symptoms since she reports that in the past NuvaRing has worked to control her recurrent ovarian cysts problems and she is compliant with it. She opted for removal- saying that she is fed up of the bleeding. The IUD removed- see above for details Follow up PRN. She has enough refills of Nuvaring Plan: POCT TEST Encounter for IUD removal See above This visit did not involve counseling and coordination that comprised more than 50% of the visit time. Reena Argueta MD documented in this encounter Plan of Treatment Date Type Specialty Care Team Description 08/18/2020 Office Visit Obstetrics & Gynecology Mikala Argueta MD [address] [place] [address] Dr. Delcid [place], [place] [phone] Health Maintenance Due Date Last Done [...] Name Priority Date/Time Associated Diagnosis Comme nts POCT TEST Routine 03/03/2020 4:51 PM Irregular R esults for this CDT periods/menstrual procedure are in cycles the results section. documented in this encounter Results POCT TEST (03/03/2020 4:51 PM CDT) Pathologist Sig nature POCT PREG Negative On board controls acceptable Yes with C Line POCT PREG LOT # POCT PREG TEST DATE Specimen Urine - URINE, CLEAN CATCH documented in this encounter Visit Diagnoses Diagnosis Irregular periods/menstrual cycles - Raquel draper Irregular menstrual cycle Encounter for IUD removal Encounter for removal of intrauterine co ntraceptive device documented in this encounter Insurance Payer Benefit Plan Subscriber ID Effective Dates Phone Address Type / Group BCBS OF [facility] [id number] 2018-Magda [phone] [address] PPO/POS [place] t 7 [id number] [place] [address] documented as of this encounter
--- OUTSIDE RECORDS SUMMARY | 2020-04-02 13:14 | XMS REPORT | Summary of Care ---
:1998 Author Organization [facility] Address [address] [place] [address] Care Team Providers Name Role Phone Frank Banks MD Primary Care Provider Gloria Anaya MD Unavailable Unavailable Reason for Visit Reason Comments Assessment Encounter Details Date Type Department Care Team Description 02/22/2020 Telephone [facility] Women's Carlota Powell MD Assessment Healthcare- [address] [address] [address] [place] [address] [phone] Allergies Active Allergy Reactions Severity Noted Date Comments Fosphenytoin Hives 12/04/2018 documented as of this encounter (statuses as of 02/22/2020) Medications Medication Sig Dispensed Refills Start Date [...] as of this encounter (statuses as of 02/22/2020) Active Problems Problem Noted Date Seizures 12/04/2018 [...] as of this encounter (statuses as of 02/22/2020) Resolved Problems Problem Noted Date Resolved Date Epilepsy 11/27/2018 07/18/2019 documented as of this encounter (statuses as of 02/22/2020) Immunizations Name Administration Dates Next Due DTAP [...] Telemedicine Visit Obstetrics Lisa Roper MD Gynecology [address] [place] [phone] 08/18/2020 Office Visit Obstetrics Carlota Roper MD Gynecology [address] [place] [phone] Health Maintenance Due Date Last Done Comments [...] Phone Address Type / Group BCBS OF [facility] [id number] 2018-Magda [phone] [address] PPO/POS [place] t 7 [id number] [place] [address] documented as of this encounter
--- OUTSIDE RECORDS SUMMARY | 2020-04-02 13:14 | XMS REPORT | Summary of Care ---
:1998 Author Organization [facility] Address [address] [place] [address] Care Team Providers Name Role Phone Frank Banks MD Primary Care Provider Gloria Anaya MD Unavailable Unavailable Reason for Visit Reason Comments IRREGULAR CYCLE Encounter Details Date Type Department Care Team Description 03/03/2020 Office Visit [facility] Women's AdumReena MD Irregular periods/menstrual cycles (Prim bandar Dx); Healthcare- [address] Encounter for IUD removal [address] [place] [address], [address] [place] [phone] Allergies Active Allergy Reactions Severity Noted [...] month. 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 If you have heavy bleeding [...] or shortness of breath Dizziness or fainting [employer] last reviewed this educational content on 07/02/201719994433-5655 [employer]. [address] [place] [address], [place] [address]. All rights reserved. This information is not [...] with you to plan treatment as needed. [employer] last reviewed this educational content on 01/30/201719991185-7373 [employer]. [address] [place] [address]. All rights reserved. 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 Another option [...] Visit Obstetrics & Gynecology Mikala Argueta MD [address] [place] [address] Dr. Delcid [place], [place] [phone] Health Maintenance Due Date Last [...] Phone Address Type / Group BCBS OF [facility] [id number] 2018-Magda [phone] [address] PPO/POS [place] t 7 [id number] [place] [address] documented as of this encounter
--- OUTSIDE RECORDS SUMMARY | 2020-04-02 13:15 | XMS REPORT | Summary of Care ---
:2000 Author Organization [facility] Address [address] [place] [address] Care Team Providers Name Role Phone Frank Banks MD Primary Care Provider Gloria Anaya MD Unavailable Unavailable Reason for Referral (EBONIE) Status Reason Specialty Diagnoses / Referred By Referred To Procedures Contact Contact New Request VALERIY-OTOLARYNGOLOG Diagnoses Tonsillitis Ibikunle, Y Procedures Discharge Follow-Up: Specialty Service VALERIY-OTOLARYNGOLOGY; 3-5 Days Folusho F, PATIENT ACCOUNTS MANAGER [address] [place] [phone] MRI/CAT Scan (STAT) Status Reason Specialty Diagnoses / Referred By Referred To Procedures Contact Contact New Request Diagnostic Diagnoses Sore throat Ibikunle, Radiology Procedures CT SOFT TISSUE NECK W CONTRAST Folusho F, PATIENT ACCOUNTS MANAGER [address] [facility] [address] [place] [phone] Reason for Visit Reason Comments Sore Throat Cough Auth/Cert Status Reason Specialty Diagnoses / Referred By Referred To Procedures Contact Contact Emergency Medicine Diagnoses SORE THROAT,SWOLLEN,FEVER [facility] Emergency Dept [address] [place] [address] Fax: Encounter Details Date Type Department Care Team Description 03/09/2020 Emergency ADC-Emergency Ibikunle, Folusho Sore thro at (Primary Dx); Department F, PATIENT ACCOUNTS MANAGER Tonsillitis 132 [facility] [address] [place], [place] [address] [place], [place] [phone] Allergies Active Allergy Reactions Severity Noted Date [...] been in contact with No / Unsure 03/09/2020 1:14 PM CDT someone who was confirmed or suspected to have Coronavirus / COVID-19? documented as of this encounter Last Filed Vital Signs Vital Sign [place] Time Taken Comments Blood Pressure 120/80 03/09/2020 2:25 PM CDT Pulse 83 03/09/2020 2:25 PM CDT Temperature 37.4 C (99.4 F) 03/09/2020 11:35 AM CDT Respiratory Rate 16 03/09/2020 2:25 PM CDT Oxygen Saturation 100% 03/09/2020 2:25 PM CDT Inhaled Oxygen Concentration - - Weight 68 kg (150 lb) 03/09/2020 11:35 AM CDT Height 162.6 cm (5' 4") 03/09/2020 11:35 AM CDT Body Mass Index 25.75 03/09/2020 11:35 AM CDT documented in this encounter Discharge Instructions Catia Trejo FNP - 03/09/2020 You were seen today for Chief Complaint Patient presents with Sore Throat Cough Your ER diagnosis was ICD-10-CM ICD-9-CM 1. Sore throat J02.9 462 2. Tonsillitis J03.90 463 NO LIFE-THREATENING FINDINGS ON TODAY'S EXAM. YOUR PRESCRIPTIONS : Medication List ASK your doctor about these medications ALPRAZolam 0.5 mg tablet Commonly known as: XANAX desloratadine 5 mg disintegrating tablet Commonly known as: CLARINEX REDITAB Take 1 tablet by mouth daily. fluticasone propionate 50 mcg/actuation nasal spray Use 2 Sprays in each nostril daily. LEXAPRO ORAL metroNIDAZOLE 500 mg tablet Commonly known as: FLAGYL Take 1 tablet by mouth 2 (two) times daily with meals. MIRENA INTRAUTERINE NUVARING 0.12-0.015 mg/24 hr vaginal insert Commonly known as: NUVARING Insert 1 Each into vagina once every month. Insert vaginally and leave in place for 3 consecutive weeks, then remove for 1 week. proMETHazine 12.5 mg tablet Commonly known as: PHENERGAN Take 1 tablet by mouth every 6 (six) hours as needed for Nausea and Vomiting (N/V). ER precautions and follow up : 1. Return to ER if your symptoms should worsen or fail to improve within 72 hours. 2. The care provided in the emergency room was for acute problems only. 3. You should follow up with ENT provider within 72 hours. 4. Fill and take all your medications as prescribed. 5. Make sure you are staying adequately hydrated. Busque attencion immediatamente si usted tiene los sitomas sigue, vuelve peor o si hay sitomas nuevas o para cualquiera preoccupacion incluyendo dolor del pecho, falta aire, se siente debile, mas fievre, mas dolor, nausea, vomitando, sangrando que no es normal, confusion, baja or pierdas conciencia. FOLLOW-UP RECOMMENDATIONS: RECOMMEND FOLLOW-UP WITH A PRIMARY CARE PROVIDER OR SPECIALIST IN 2-5 DAYS, ESPECIALLY IF NO IMPROVEMENT IN SYMPTOMS. MAY FOLLOW-UP WITH A PROVIDER OF YOUR CHOICE, SUCH : 1. A PHYSICIAN OF YOUR CHOICE 2. [facility], . LOCATIONS IN [facility] 3. [facility], [address] [place] [address]; [phone] OR, IF YOU WISH TO FOLLOW-UP WITHIN THE [facility], MAY TRY THESE OPTIONS (CLINIC APPOINTMENTS AVAILABLE ON [id number] BASIS): 1. SCHEDULE AN APPOINTMENT ONLINE AT [facility] 2. OR CALL THE [facility] AT OR 3. OR CALL YOUR [facility] PHYSICIAN'S OFFICE DIRECTLY IF YOU ARE ALREADY AN ESTABLISHED [facility] PATIENT. documented in this encounter Plan of Treatment Date Type Specialty Care Team Description 08/18/2020 Office Visit Obstetrics & Gynecology Mikala Argueta MD [address] [place] [address] Dr. Gambino [address] [place] [address] 15-1500 Name Type Priority Associated Diagnoses Date/Ti me CORONAVIRUS COVID-19 LAB STAT Sore throat 020 12:09 PM CDT TESTING THROAT CULTURE LAB STAT Sore throat 03/09/2020 12 :09 PM CDT Name Type Priority Associated Diagnoses Order S chedule CORONAVIRUS COVID-19 LAB Routine Sore throat ONCE fo r 1 Occurrences TESTING starting 2019 until 03/09/2020 CREATININE LAB Routine Sore throat ONCE for 1 Occu rrences starting 2019 until 03/09/2020 THROAT CULTURE LAB Routine Sore throat ONCE for 1 Oc currences starting 2019 until 03/09/2020 Health Maintenance Due Date Last Done Comments [...] encounter Procedures Procedure Name Priority Date/Time Associated Comments Diagnosis CT SOFT TISSUE NECK STAT 03/09/2020 1:45 PM Sore throat R esults for this W CONTRAST CDT procedure are i n the results section. HB CREATININE BLOOD Routine 03/09/2020 1:31 PM R esults for this CDT procedure are i n the results section. RAPID STREP SCREEN STAT 03/09/2020 12:09 PM Sore throat Re sults for this FOR GROUP A CDT procedure are i n the results section. documented in this encounter Results CT SOFT TISSUE NECK W CONTRAST (03/09/2020 1:45 PM CDT) Specimen Impressions Performed At PACS/VR/DOSE Enlargement of the palatine tonsils and nasopharyngeal soft tissues is consistent with reactive lymphoid hyperp lasia/tonsillitis. No abscess is seen. Apposition of the epiglottis with the hypopharyngeal m ucosa. Evaluation is suboptimal in this region. However, no e vidence of epiglottitis or mass. Correlation with direct visual inspection can be consi dered as clinically directed. Mild reactive, region lymphadenopathy. Narrative Performed At HISTORY: Chronic laryngitis PACS/VR/DOSE TECHNIQUE: CT of the neck was performed with IV contrast. COMPARISON: None. FINDINGS: Enhancing enlarged lymphoid tissue is seen in the naso pharynx and palatine tonsils, consistent with acute tonsillit is or reactive lymphoid hyperplasia. The epiglottis is a posteriorly mucosal surfaces in the hypopharynx. No obvious mass or abnormality seen in this region. The r emaining hypopharynx and larynx are within normal limits. No acute findings in the oral cavity. Th e thyroid, parotid and submandibular glands are within normal l imits. A few enlarged lymph nodes are seen in the upper neck, predominantly in the level 2 bilaterally. These are favored t o be reactive. Procedure Note [facility], Radiant Results Inft User - 2019 1:53 PM CDT HISTORY: Chronic laryngitis TECHNIQUE: CT of the neck was performed with IV contrast. COMPARISON: None. FINDINGS: Enhancing enlarged lymphoid tissue is se en in the nasopharynx and palatine tonsils, consistent with acute tonsillit is or reactive lymphoid hyperplasia. The epiglottis is a posteriorly mucosal surfaces in the hypopharynx. No obvious mass or abnormality seen in this region. The remaining hypopharynx and larynx are within normal limits. No acute findings in the oral cavity. Th e thyroid, parotid and submandibular glands are within normal l imits. A few enlarged lymph nodes are seen in t he upper neck, predominantly in the level 2 bilaterally. These are favored t o be reactive. IMPRESSION Enlargement of the palatine tonsils and nasopharyngeal soft tissues is consistent with reactive lymphoid hyperp lasia/tonsillitis. No abscess is seen. Apposition of the epiglottis with the hy popharyngeal mucosa. Evaluation is suboptimal in this region. However, no e vidence of epiglottitis or mass. Correlation with direct visual inspectio n can be considered as clinically directed. Mild reactive, region lymphadenopathy. Performing Organization Address City/State/Zipcode Phone Number PACS/VR/DOSE POCT CREATININE (03/09/2020 1:31 PM CDT) Pathologist Sig nature POCT Creatinine 0.6 0.5 - 1.1 mg/dL [facility] Specimen Blood - VENOUS Performing Organization Address City/[facility]/Zipcode Phone Number [facility] CLIA: [id number], [address] [place], [place] [address] RAPID STREP SCREEN FOR GROUP A (03/09/2020 12:09 PM CDT) Pathologist Sig nature Streptococcus pyogenes Negative Negative [facility] (group A) [facility] LABORATORY Specimen Swab - THROAT Performing Organization Address [facility] Phone Number [facility] CLIA: [id number], [address] [place], [place] [address] documented in this encounter Visit Diagnoses Diagnosis Sore throat - Primary Acute pharyngitis Tonsillitis Acute tonsillitis documented in this encounter Administered Medications Medication Order MAR Action Action Date Dose Rate Site dexamethasone (DECADRON PHOSPHATE) Given 03/09/2020 1:08 PM CDT 10 mg injection 10 mg 10 mg, IV Push, ONCE, 1 dose, Citlali 03/09/20 at 1400, STAT iohexol (OMNIPAQUE 350 BULK-100 mL) Given 03/09/2020 1:38 PM CD T 100 mL injection 100 mL 100 mL, Intravenous, ONCE, 1 dose, Citlali 03/09/20 at 1400, Routine ketorolac (TORADOL) injection 30 mg Given 03/09/2020 1:07 PM CDT 30 mg 30 mg, Slow IV Push, ONCE, 1 dose, Citlali 03/09/20 at 1400, Routine, restaurant hourly team member approving Restricted medication: CATIA GOLDSTEIN maalox:diphenhydrAMINE:lidocaine 2 % viscous Given 05/2020 2:23 PM CDT 15 mL 1:1:1 (FIRST-MOUTHWASH BLM) oral suspension 15 mL 15 mL, Oral, ONCE, 1 dose, Citlali 03/09/20 at 1515, Routine documented in this encounter Additional Health Concerns Infection Onset Date Last Indicated Resolved Time COVID-19 Rule Out 03/09/2020 03/09/2020 documented as of this encounter Insurance Payer Benefit Plan Subscriber ID Effective Dates Phone Address Type / Group [facility] [id number] 2018-Magda [phone] [address] PPO/POS [place] t 7 [id number] [place] [address] documented as of this encounter
--- OUTSIDE RECORDS SUMMARY | 2020-04-02 13:16 | XMS REPORT | Summary of Care ---
:1998 Author Organization [facility] Address [address] [place] [address] Care Team Providers Name Role Phone Frank Banks MD Primary Care Provider Gloria Anaya MD Unavailable Unavailable Reason for Visit Reason Comments New Patient discuss T&A (EBONIE) Status Reason Specialty Diagnoses / Referred By Referred To Procedures Contact Contact Closed VALERIY-OTOLARYNGOLOGY / Diagnoses Tonsillitis Mike Otolaryngology Procedures Discharge Follow-Up: Specialty Service VALERIY-OTOLARYNGOLOGY; 3-5 Days Folusho F, HOOK LOADER [address] [facility] [address] [place] [address] Encounter Details Date Type Department Care Team Description 03/14/2020 Office Visit [facility] [place] Robert, MD Recurrent tonsillitis (Primary Dx); Nose and Throat- [address] [place] [address]. Burning sensation of throat; [place] [address] Non-seasonal allergic rhinitis, unspecif ied trigger [id number] Sushant Lantigua [phone] [facility] [place] [address] Allergies Active Allergy Reactions Severity Noted Date Comments Fosphenytoin Hives 12/04/2018 documented as of this encounter (statuses as of 03/17/2020) Medications Medication Sig Dispensed Refills Start Date [...] as of this encounter (statuses as of 03/17/2020) Active Problems Problem Noted Date Seizures 12/04/2018 [...] as of this encounter (statuses as of 03/17/2020) Resolved Problems Problem Noted Date Resolved Date Epilepsy 11/27/2018 07/18/2019 documented as of this encounter (statuses as of 03/17/2020) Immunizations Name Administration Dates Next Due DTAP [...] been in contact with No / Unsure 03/14/2020 3:35 PM CDT someone who was confirmed or suspected to have Coronavirus / COVID-19? documented as of this encounter Last Filed Vital Signs Vital Sign [place] Time Taken Comments Blood Pressure - - Pulse - - Temperature 37 C (98.6 F) 03/14/2020 3:40 PM CDT Respiratory Rate - - Oxygen Saturation - - Inhaled Oxygen Concentration - - Weight 68.9 kg (152 lb) 03/14/2020 3:40 PM CDT Height 162.6 cm (5' 4") 03/14/2020 3:40 PM CDT Body Mass Index 26.09 03/14/2020 3:40 PM CDT documented in this encounter Progress Notes Aguilar Vasquez MD - 03/14/2020 3:45 PM CDT Otolaryngology Clinic Visit Name: Jen Tavarez Chief Complaint Recurrent tonsillitis Referring Physician: LIT Bo History of Present Illness Jen Tavarez is a 19 year old female with a hx of AR presenting for an evaluation of the above complaint. Reports for the past 2 years she has had sinusitis, tonsillitis, ear infections every other month. Today she endorses throat soreness, burning. She was referred here to discuss a tonsillectomy. She had strep throat treated with a 10 day of amoxicillin followed by 2 Zpaks but her tonsils were still enlarged causing dysphagia despite drinking hot tea. She reports in 2018 she had 7 episodes of Strep throat and since then she gets tonsillitis every 3-4 months. She reports having a hxof ear infections. She has tried Flonase in the past but did not like it. Denies fever, dysphagia, o dynophagia. Past Medical History Past Medical History: Diagnosis Date Abnormal uterine [...] 2011 PTSD (post-traumatic stress disorder) Vesicoureteral reflux Past Surgical History No H&N surgeries History reviewed. No pertinent surgical history. Past Social History Social History Socioeconomic History Marital status: Spouse [...] file Gets together: Not on file Attends alevism service: Not on file Active member of [...] not working currently. She denies domestic violence. Family History Reviewed/noncontributory Review of Systems Constitutional: Negative; Eyes: Negative; ENT: Recurrent tonsillitis, throat burning, AR; CV: negative; Resp:negative; GI: Negative; : negative; MSK: negative; Integumentary: negative; Neuro: negative; Psych: negative; Endoc: negative; Heme: negative; Allergy/Immunology: negative Physical Exam Temp 37 C (98.6 F) (Tympanic) | Ht 5' 4" (1.626 m) | Wt 152 lb (68.9 kg) | BMI 26.09 kg/m General: NAD, affect appropriate Eyes: EOMI Ears: Canals clear. TMs flat/intact Nose: No septal deviation, no inferior turbinate hypertrophy, no mass/lesions Oral cavity: no trismus, no mass/lesions, tonsils 2+, PND, posterior pharyngeal cobblestoning Neck: no masses palpated, trachea is midline; no thyroid nodules, Salivary glands symmetrical, no masses/abnormality on palpation, PND Lymph: no cervical lymphadenopathy Skin: no obvious facial lesions Neuro: face symmetrical, no obvious masses or cranial nerve palsy Lungs: Normal work of breathing, symmetrical chest expansion Procedure None Medical Data Comprehensive chart review performed Laboratory No new labs Radiology IMPRESSION CT SOFT TISSUE 03/09/2020 Enlargement of the palatine tonsils and nasopharyngeal soft tissues is consistent with reactive lymphoid hyperplasia/tonsillitis. No abscess is seen. Apposition of the epiglottis with the hypopharyngeal mucosa. Evaluation is suboptimal in this region. However, no evidence of epiglottitis or mass. Correlation with direct visual inspection can be considered as clinically directed. Mild reactive, region lymphadenopathy. Assessment/Plan Jen Tavarez is a 19 year old female with: recurrent episodes of tonsillitis for the past 2 years, she will begin Flonase daily and f/u as needed. J03.91 Recurrent tonsillitis (primary encounter diagnosis) R07.0 Burning sensation of throat J30.89 Non-seasonal allergic rhinitis, unspecified trigger Begin Flonase daily consistently for 6 weeks Drink plenty of fluids RTC: PRN Attestation Diana Peralta , am scribing for, and in the presence of, Aguilar Vasquez MD who performed and or ordered the services described here-in. Diana Anderson Scribe Robyn: [facility] Otolaryngology Clinics March 14, 2020, 3:43 PM Aguilar Peralta MD, personally performed the services described in this documentation , as scribed by, Diana Anderson in my presence and it is both accurate and complete. Aguilar Vasquez MD March 17, 2020, 12:36 PM documented in this encounter Plan of Treatment Date Type Specialty Care Team Description 08/18/2020 Office Visit Obstetrics & Gynecology Adum, Mikala Gonzalez MD [address] [place] [address] Dr. Delcid [place] [address] 15-1500 Health Maintenance Due Date Last Done [...] filedocumented in this encounter Visit Diagnoses Diagnosis Recurrent tonsillitis - Primary Acute tonsillitis Burning sensation of throat Throat pain Non-seasonal allergic rhinitis, unspecif ied trigger documented in this encounter Insurance Payer Benefit Plan Subscriber ID Effective Dates Phone Address Type / Group [id number] 2018-Magda [phone] [address] PPO/POS [place] t 7 [id number] [place] [address] documented as of this encounter
--- OUTSIDE RECORDS SUMMARY | 2020-04-02 13:16 | XMS REPORT | Summary of Care ---
:1998 Author Organization [facility] Address [address] [place] [address] Care Team Providers Name Role Phone Frank Banks MD Primary Care Provider Gloria Anaya MD Unavailable Unavailable Reason for Visit Reason Comments New Patient discuss T&A (EBONIE) Status Reason Specialty Diagnoses / Referred By Referred To Procedures Contact Contact Closed VALERIY-OTOLARYNGOLOGY / Diagnoses Tonsillitis Mike Otolaryngology Procedures Discharge Follow-Up: Specialty Service VALERIY-OTOLARYNGOLOGY; 3-5 Days Folusho F, JORDAN MAN [address] [facility] [address] [place] [address] Encounter Details Date Type Department Care Team Description 03/14/2020 Office Visit [facility] [place] Robert, MD Recurrent tonsillitis (Primary Dx); Nose and Throat- [address] [place] [address]. Burning sensation of throat; [place] [address] Non-seasonal allergic rhinitis, unspecif ied trigger [address] Sushant Lantigua [phone] [facility] [place] [address] Allergies Active Allergy Reactions Severity [...] file Gets together: Not on file Attends episcopal service: Not on file Active member of [...] services described here-in. Diana Anderson Scribe Robyn: [facility] Otolaryngology Clinics March 14, 2020, 3:43 PM [...] Obstetrics & Gynecology Adum, Mikala Gonzalez MD [address] [place] [address] Dr. Delcid [place] [address] 15-1500 Health Maintenance Due Date Last Done [...] Effective Dates Phone Address Type / Group [facility] [id number] 2018-Magda [phone] [address] PPO/POS [place] t 7 [id number] [place] [address] documented as of this encounter
--- OUTSIDE RECORDS SUMMARY | 2020-04-02 13:16 | XMS REPORT | Summary of Care ---
:1998 Author Organization [facility] Address [address] [place] [address] Care Team Providers Name Role Phone Frank Banks MD Primary Care Provider Gloria Anaya MD Unavailable Unavailable Encounter Details Date Type Department Care Team Description 03/03/2020 Orders Only [facility] Doctor Unassigned, No [address] [facility] [place] [address] [address] [place] [id number] Allergies Active Allergy Reactions Severity Noted Date Comments Fosphenytoin Hives 12/04/2018 documented as of this encounter (statuses as of 03/27/2020) Medications Medication Sig Dispensed Refills Start Date [...] as of this encounter (statuses as of 03/27/2020) Active Problems Problem Noted Date Seizures 12/04/2018 [...] as of this encounter (statuses as of 03/27/2020) Resolved Problems Problem Noted Date Resolved Date Epilepsy 11/27/2018 07/18/2019 documented as of this encounter (statuses as of 03/27/2020) Immunizations Name Administration Dates Next Due DTAP [...] Obstetrics & Gynecology Adum, Mikala Gonzalez MD [address] [place] [address] Dr. Gambino [address] [place] [address] 15-1500 Health Maintenance Due Date Last Done [...] Name Priority Date/Time Associated Diagnosis Comme nts DISCLOSURE AND CONSENT, Routine 03/03/2020 12:01 AM MEDICAL AND SURGICAL CDT PROCEDURES documented in this encounter Results Not on filedocumented in this encounter Additional Health Concerns Infection Onset Date Last Indicated Resolved Time COVID-19 Rule Out 03/09/2020 03/09/2020 03/10/2020 12: 46 PM CDT documented as of this encounter Insurance Payer Benefit Plan Subscriber ID Effective Dates Phone Address Type / Group [facility] [id number] 2018-Magda [phone] [address] PPO/POS [place] t 7 [id number] [place] [address] documented as of this encounter
[2020-04-02] MEDS ORDERED: LIDOCAINE 1% MPF 5 ML VIAL ONE (13:49)
--- NOTE | 2020-04-02 14:03 | EDPHYS ---
Physician Documentation [facility] Name: Jen Tavarez Age: 19 yrs Sex: Female : 2000 Arrival Date: 04/02/2020 Time: 13:12 Bed 23 Private MD: ED Physician Jeremias Castillo HPI: 04/02 13:59 This 19 yrs old Female presents to ER via Ambulatory with complaints of HOOK pm1 IN LEG. 13:59 The patient presents with a puncture wound, fish hook. The complaints affect the pm1 posterior aspect of left knee. Context: The problem was sustained outdoors, resulted from accidental , the patient can fully bear weight, the patient is able to ambulate, Problem is a result from a previous injury: No. Onset: The symptoms/episode began/occurred just prior to arrival. Modifying factors: The symptoms are alleviated by remaining still, the symptoms are aggravated by bending knee. Associated signs and symptoms: The patient has no apparent associated signs or symptoms, Pertinent negatives numbness, swelling, tingling. Treatment prior to arrival includes: no previous treatment. Severity of symptoms: in the emergency department the symptoms are unchanged. Patient's family member was pulling hard his fishing because it was stuck on a rock. When it got loose it got stuck on the back of the patient's left knee. Historical: - Allergies: 13:34 Fosphenytoin; ss - Home Meds: 13:34 Vyvanse 10 mg oral cap daily [Active]; Xanax Oral [Active]; ss - PMHx: 13:34 Seizures; Anxiety; ss - Immunization history:: Adult Immunizations up to date, Last tetanus immunization: up to date. - Social history:: Smoking status: Patient denies any tobacco usage or history of. ROS: 13:59 Constitutional: Negative for fever, chills, and weight loss. pm1 13:59 MS/extremity: Positive for pain, of the posterior aspect of left knee, Negative for decreased range of motion, deformity, laceration. 13:59 Skin: Positive for puncture, of the posterior aspect of left knee. 13:59 All other systems are negative. Exam: 13:59 Constitutional: This is a well developed, well nourished patient who is awake, alert, pm1 and in no acute distress. Head/Face: Normocephalic, atraumatic. 13:59 Cardiovascular: Exam negative for acute changes, Rate: normal, Rhythm: regular, Pulses: no pulse deficits are appreciated, Edema: is not appreciated. 13:59 Respiratory: Exam negative for acute changes, respiratory distress, shortness of breath. 13:59 Musculoskeletal/extremity: Extremities: grossly normal except: noted in the posterior aspect of left knee: puncture, There is no evidence of decreased ROM, deformity. 13:59 Skin: Appearance: normal except for affected area, injury, puncture(s), that are superficial, of the posterior aspect of left knee. 13:59 Neuro: Exam negative for acute changes, Orientation: is normal, Mentation: is normal, Motor: is normal, moves all fours. Vital Signs: 13:31 BP 123 / 91; Pulse 94; Resp 15; Temp 98.2(TE); Pulse Ox 99% on R/A; Weight 68.04 kg; ss Height 5 ft. 4 in. (162.56 cm); Pain 2/10; 13:31 Body Mass Index 25.75 (68.04 kg, 162.56 cm) ss Procedures: 13:59 Foreign Body Removal: a fishhook, from the posterior aspect of left knee, by tip of pm1 fish hook and casimiro superficial. Pushed casimiro through and cut it. Irrigated inside of the wound with betadine and NS. The patient tolerated the removal well, lidocaine 2 ml infused to area. MDM: 13:35 Patient medically screened. pm1 14:01 Data reviewed: vital signs. Data interpreted: Pulse oximetry: on room air is 99 %. pm1 Interpretation: normal. Counseling: I had a detailed discussion with the patient and/or guardian regarding: the historical points, exam findings, and any diagnostic results supporting the discharge/admit diagnosis, the need for outpatient follow up, to return to the emergency department if symptoms worsen or persist or if there are any questions or concerns that arise at home. Administered Medications: 13:47 Drug: Lidocaine (1 %) 5 ml {Note: administered to affected area by MADHURI Alston.} ss Volume: 5 ml; Route: Infiltration; 14:22 Drug: Doxycycline 100 mg Route: PO; ss Disposition: 17:52 Co-signature as Attending Physician, Jeremias Castillo MD. ma2 Disposition: 04/02/20 14:03 Discharged to Home. Impression: Puncture wound with foreign body, left lower leg - fish hook removed. - Condition is Stable. - Discharge Instructions: Puncture Wound, Foreign Body. - Prescriptions for Doxycycline Hyclate 100 mg Oral Tablet - take 1 tablet by ORAL route every 12 hours; 20 tablet. - Medication Reconciliation Form, Thank You Letter, Antibiotic Education, Prescription Opioid Use form. - Follow up: Emergency Department; When: As needed; Reason: Worsening of condition. Follow up: Private Physician; When: 2 - 3 days; Reason: Recheck today's complaints, Continuance of care, Re-evaluation by your physician. - Problem is new. - Symptoms have improved. Signatures: Farhana Donahue RN RN ss Gamaliel Guerrero NP MARKETING OPERATIONS INTERN pm1 Jeremias Castillo MD MD ma2 Corrections: (The following items were deleted from the chart) 14:25 14:03 04/02/2020 14:03 Discharged to Home. Impression: Puncture wound with foreign ss body, left lower leg - fish hook removed. Condition is Stable. Forms are Medication Reconciliation Form, Thank You Letter, Antibiotic Education, Prescription Opioid Use. Follow up: Emergency Department; When: As needed; Reason: Worsening of condition. Follow up: Private Physician; When: 2 - 3 days; Reason: Recheck today's complaints, Continuance of care, Re-evaluation by your physician. Problem is new. Symptoms have improved. pm1
--- NOTE | 2020-04-02 14:03 | ER ---
Nurse's Notes [facility] Name: Jen Tavarez Age: 19 yrs Sex: Female : 2000 Arrival Date: 04/02/2020 Time: 13:12 Bed 23 Private MD: Diagnosis: Puncture wound with foreign body, left lower leg-fish hook removed Presentation: 04/02 13:31 Chief complaint: Patient states: single hook fishing lure to behind L knee. Injury ss occurred 1 hour ago. Coronavirus screen: Client denies travel out of the [place] in the last 14 days. At this time, the client does not indicate any symptoms associated with coronavirus-19. Ebola Screen: Patient denies exposure to infectious person. Patient denies travel to an Ebola-affected area in the 21 days before illness onset. Initial Sepsis Screen: Does the patient meet any 2 criteria? No. Patient's initial sepsis screen is negative. Does the patient have a suspected source of infection? No. Patient's initial sepsis screen is negative. Risk Assessment: Do you want to hurt yourself or someone else? Patient reports no desire to harm self or others. Onset of symptoms was April 02, 2020. 13:31 Method Of Arrival: Ambulatory ss 13:31 Acuity: HALLEY 4 ss Historical: - Allergies: 13:34 Fosphenytoin; ss - Home Meds: 13:34 Vyvanse 10 mg oral cap daily [Active]; Xanax Oral [Active]; ss - PMHx: 13:34 Seizures; Anxiety; ss - Immunization history:: Adult Immunizations up to date, Last tetanus immunization: up to date. - Social history:: Smoking status: Patient denies any tobacco usage or history of. Screenin:31 Abuse screen: Denies threats or abuse. Denies injuries from another. Nutritional ss screening: No deficits noted. Tuberculosis screening: Never had TB. Fall Risk None identified. Assessment: 13:31 General: Appears in no apparent distress. comfortable, Behavior is calm, cooperative. ss Pain: Complains of pain in posterior aspect of left knee Pain currently is 3 out of 10 on a pain scale. Quality of pain is described as tender, Pain began 1 hour ago. Is continuous. Neuro: Level of Consciousness is awake, alert, obeys commands, Oriented to person, place, time, situation. Cardiovascular: Capillary refill < 3 seconds is brisk in bilateral fingers Patient's skin is warm and dry. Respiratory: Airway is patent Respiratory effort is even, unlabored, Respiratory pattern is regular, symmetrical. GI: No signs and/or symptoms were reported involving the gastrointestinal system. Derm: Skin is intact, is healthy with good turgor, Skin is dry. Vital Signs: 13:31 BP 123 / 91; Pulse 94; Resp 15; Temp 98.2(TE); Pulse Ox 99% on R/A; Weight 68.04 kg; ss Height 5 ft. 4 in. (162.56 cm); Pain 2/10; 13:31 Body Mass Index 25.75 (68.04 kg, 162.56 cm) ED Course: 13:12 Patient arrived in ED. bp1 13:31 Patient has correct armband on for positive identification. Bed in low position. Call ss light in reach. 13:33 Triage completed. 13:34 Arm band placed on right wrist. 13:35 Gamaliel Guerrero NP is [facility]. pm1 13:35 Jeremias Castillo MD is Attending Physician. pm1 14:23 Assist provider with foreign body removal of a fish hook from left back of knee using wire cutters and pliers Set up for procedure. Performed by Gamaliel Guerrero MRI SUPERVISOR Dressed with triple antibiotic ointment and band aid Patient tolerated well. Patient did not have IV access during this emergency room visit. Administered Medications: 13:47 Drug: Lidocaine (1 %) 5 ml {Note: administered to affected area by MADHURI Alston.} Volume: 5 ml; Route: Infiltration; 14:22 Drug: Doxycycline 100 mg Route: PO; Outcome: 14:03 Discharge ordered by . pm1 14:23 Discharged to home ambulatory. 14:23 Condition: good 14:23 Discharge instructions given to patient, Instructed on discharge instructions, follow up and referral plans. medication usage, wound care, Demonstrated understanding of instructions, follow-up care, medications, wound care. 14:25 Patient left the ED. Signatures: Farhana Donahue RN RN Gamaliel Guerrero, MADHURI MRI SUPERVISOR pm1 Yumiko Galindo bp1
[2020-04-02] MEDS ORDERED: DOXYCYCLINE 100 MG CAP PO ONE (14:28)
[2020-04-02 14:30] VITALS: BP 123/91; TEMP 98.2; O2SAT 99
== END 2020-04-02 14:25 | disposition home or self-care (01) ==
LOC: ER 13:10
DX: S81.842A Puncture wound with foreign body, left lower leg, initial encounter (principal); F41.9 Anxiety disorder, unspecified; G40.909 Epilepsy, unspecified, not intractable, without status epilepticus; Z88.8 Allergy status to other drugs, medicaments and biological substances
CPT/HCPCS: 99283

== ENCOUNTER 2021-07-02 15:29 | Emergency (ER) | payer OTHER, BC ==
[2021-07-02 16:50] LABS: Urine Blood 1+ (Negative); Urine Glucose Negative (Negative); Urine Protein Trace (Negative); Urine Specific Gravity >=1.030 (1.005-1.030); Urine pH 5.5 (5.0-7.0)
[2021-07-02 16:59] LABS: Absolute Lymphocytes (CBC) 2.6 K/uL (0.7-4.9); Basophils % 0.5 % (0-1.3); Hematocrit 38.1 % (36.0-45.0); MPV 6.7 fL (7.6-11.3)
[2021-07-02 17:02] LABS: Protime INR 0.97
[2021-07-02 17:09] LABS: Barbiturates NEGATIVE (NEGATIVE); Benzodiazepines NEGATIVE (NEGATIVE); Cocaine NEGATIVE (NEGATIVE); METHAMPHETAM NEGATIVE (NEGATIVE); Methadone NEGATIVE (NEGATIVE); Opiates NEGATIVE (NEGATIVE); Phencyclidine NEGATIVE (NEGATIVE); THC Cannibis NEGATIVE (NEGATIVE)
[2021-07-02 17:21] LABS: ALT/SGPT 16 U/L (12-78); AST/SGOT 9 U/L (15-37); Albumin 3.1 g/dL (3.4-5.0); Alkaline Phosphatase 81 U/L (45-117); BUN Blood Urea Nitrogen 8 mg/dL (7-18); Bicarbonate 27 mmol/L (21-32); Bilirubin Direct < 0.1 mg/dL (0-0.2); Bilirubin Total 0.1 mg/dL (0.2-1.0); Glucose Level 99 mg/dL (74-106); Potassium 3.9 mmol/L (3.5-5.1); Protein, Total 7.8 g/dL (6.4-8.2); Sodium Level 141 mmol/L (136-145)
[2021-07-02 20:14] LABS: Urine Specific Gravity/Preg >1.030 (1.005-1.030)
--- NOTE | 2021-07-02 21:21 | ER ---
Nurse's Notes [facility] Name: Jen Tavarez Age: 20 yrs Sex: Female : 2000 Arrival Date: 07/02/2021 Time: 15:33 Bed 26 Private MD: Diagnosis: Suicidal ideations Presentation: 07/02 15:51 Chief complaint: Patient states: Pt took 20 mg Ambien and 600 mg of trazodone yesterday vg1 around 1800. Pt states 'feels like a zombie right now' Denies NVD. Pt states is SI, denies HI. Pt states OD is part of SI plan. States 'took the pills bc just wanted to sleep'. Pt states headache, denies ABD pain. Coronavirus screen: Vaccine status: Patient reports receiving the 1st dose of the Covid vaccine. Client denies travel out of the [place] in the last 14 days. Pt states only took first dose of Moderna due to brain swelling. Ebola Screen: Patient negative for fever greater than or equal to 101.5 degrees Fahrenheit, and additional compatible Ebola Virus Disease symptoms. Initial Sepsis Screen: Does the patient meet any 2 criteria? No. Patient's initial sepsis screen is negative. Does the patient have a suspected source of infection? No. Patient's initial sepsis screen is negative. Risk Assessment: Do you want to hurt yourself or someone else? Patient reports desire/thoughts of hurting themselves or someone else. Provider notified. Onset of symptoms was July 01, 2021. 15:51 Method Of Arrival: Ambulatory vg1 15:51 Acuity: HALLEY 2 vg1 Triage Assessment: 15:56 General: Appears in no apparent distress. uncomfortable, Behavior is cooperative, vg1 quiet. Pain: Complains of pain in head. 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 - Social history:: Smoking status: Patient denies any tobacco usage or history of. Screenin:19 Abuse screen: Denies threats or abuse. Denies injuries from another. Nutritional ld1 screening: No deficits noted. Tuberculosis screening: No symptoms or risk factors identified. Fall Risk None identified. Assessment: 16:19 General: Appears in no apparent distress. comfortable, Behavior is calm, cooperative, ld1 appropriate for age. Pain: Denies pain. Neuro: Level of Consciousness is awake, alert, obeys commands, Oriented to person, place, time, situation. Cardiovascular: Capillary refill < 3 seconds Patient's skin is warm and dry. Respiratory: Airway is patent Respiratory effort is even, unlabored, Respiratory pattern is regular, symmetrical. GI: Abdomen is round non-distended. : No signs and/or symptoms were reported regarding the genitourinary system. EENT: No signs and/or symptoms were reported regarding the EENT system. Derm: No signs and/or symptoms reported regarding the dermatologic system. Musculoskeletal: No signs and/or symptoms reported regarding the musculoskeletal system. 16:22 Reassessment: Called [place]. Case # [id number]. child and family services worker Magdalena suggested ld1 EKG/Cardiac monitoring, Seizure precautions, VS monitoring. Will continue to monitor. 17:01 Reassessment: Patient appears in no apparent distress at this time. No changes from ld1 previously documented assessment. Patient denies pain at this time. 18:11 Reassessment: Patient appears in no apparent distress at this time. No changes from ld1 previously documented assessment. Patient and/or family updated on plan of care and expected duration. Pain level reassessed. Pt resting in bed. Denies concerns at this time. 19:41 Reassessment: Patient appears in no apparent distress at this time. No changes from ld1 previously documented assessment. 20:28 Reassessment: Spoke with Jacqueline at poison control, stated pt was cleared and that they ld1 would not be calling back again. Overdose: 22:24 [place] Suicide Severity Screening: "In the past month, have you wished you were ld1 or wished you could go to sleep and not wake up?" Patient responds "yes." Based off client's responses, additional C-SSRS screening questions required. "In the past month, have you actually had any thoughts of killing yourself?" Patient responds "yes." "In your lifetime, have you ever done anything, started to do anything, or prepared to do anything to end your life?" Patient responds "yes.". 22:24 [place] Suicide Severity Screening: "In the past month, have you actually had any ld1 thoughts of killing yourself?" Patient responds "yes." Based off client's responses, additional C-SSRS screening questions required. Vital Signs: 15:51 BP 123 / 83; Pulse 16; Resp 95; Temp 98.4; Pulse Ox 99% ; Weight 77.11 kg; Height 5 ft. vg1 4 in. (162.56 cm); Pain 5/10; 16:19 BP 140 / 88; Pulse 94; Resp 18; Pulse Ox 100% on R/A; Pain 0/10; ld1 17:01 BP 136 / 82; Pulse 86; Resp 17; Pulse Ox 100% ; ld1 18:11 BP 138 / 90; Pulse 72; Resp 18; Pulse Ox 97% on R/A; ld1 19:41 BP 96 / 53; Pulse 88; Resp 15; Temp 97.9(O); Pulse Ox 98% on R/A; ld1 22:24 BP 98 / 60; Pulse 85; Resp 20; Temp 98.7(O); Pulse Ox 98% on R/A; ld1 15:51 Body Mass Index 29.18 (77.11 kg, 162.56 cm) vg1 ED Course: 15:33 Patient arrived in ED. ds1 15:56 Triage completed. vg1 15:56 Arm band placed on. vg1 16:00 Maranda Muse RN is Primary Nurse. ld1 16:00 Nancy Pacheco FNP-C is [facility]. kb 16:00 Justin Carranza MD is Attending Physician. kb 16:19 Patient has correct armband on for positive identification. Bed in low position. Call ld1 light in reach. Side rails up X2. reconstructive dentist on. Pulse ox on. NIBP on. Door closed. Noise minimized. Warm blanket given. 16:19 No provider procedures requiring assistance completed. ld1 20:15 faxed patient clincals to all available psych facility. mw2 20:52 Kandis from [facility] called to do nurse to nurse. mw2 21:02 nurse to nurse with from [facility]. mw2 21:11 connected Nancy Pacheco POWER GENERATION EQUIPMENT REPAIRER with Dr. More from [facility]. mw2 21:19 administrative approval given by Ahmet Rojas/ patient has been accepted to [place] [id number] [facility]/ Dr. More accepted the patient in transfer. 22:25 IV discontinued, intact, bleeding controlled, No redness/swelling at site. ld1 Administered Medications: No medications were administered Outcome: 21:21 ER care complete, transfer ordered by MD. jacinto 22:24 Transferred by ground EMS ld1 22:24 Condition: stable 22:24 Instructed on the need for transfer. 22:25 Patient left the ED. ld1 Signatures: Nancy Pacheco, ELEVATOR SERVICE TECHNICIAN-C ELEVATOR SERVICE TECHNICIAN-Morelia Sheth ds1 CaryDarshana mw2 Ro French, RN RN vg1 Maranda Muse, MARCELO RN ld1 Corrections: (The following items were deleted from the chart) 15:58 15:56 Home Meds: Vyvanse 10 mg Oral cap daily; vg1 vg1 21:05 21:02 nurse to nurse with Ely from [facility] mw2
--- NOTE | 2021-07-02 21:21 | EDPHYS ---
Physician Documentation [facility] Name: Jen Tavarez Age: 20 yrs Sex: Female : 2000 Arrival Date: 07/02/2021 Time: 15:33 Bed 26 Private MD: ED Physician Justin Carranza HPI: 07/02 16:27 This 20 yrs old Female presents to ER via Ambulatory with complaints of kb Overdose. 16:27 The patient presents to the emergency department after a known overdose, that was kb intentional. Context: Method: the patient has a confirmed or suspected ingestion, Time: yesterday, at 16:00, Extent: the OD/poisoning occurred at at home. Associated signs and symptoms: Pertinent positives: depression. Severity of symptoms: At their worst the symptoms were moderate in the emergency department the symptoms are unchanged. The patient has not experienced similar symptoms in the past. The patient has not recently seen a physician. Pt states she took Ambien 20mg and Trazadone 600mg yesterday because she wanted to go to sleep and never wake up. States she has felt suicidal for a week because she sabotaged her fiance and ruined her wedding. . ASSISTANT CURATOR: 15:56 LMP 06/06/2021 vg1 Historical: - Allergies: 15:56 Fosphenytoin; vg1 - Home Meds: 15:56 Prozac Oral [Active]; Ambien Oral [Active]; vg1 - PMHx: 15:56 Anxiety; Seizures; Migraine; vg1 - Immunization history:: Adult Immunizations up to date, Client reports receiving the 1st dose of the Covid vaccine. - Social history:: Smoking status: Patient denies any tobacco usage or history of. ROS: 16:24 Constitutional: Negative for fever, chills, and weight loss. kb 16:24 Psych: Positive for depression, suicide gesture, suicidal ideation. 16:24 All other systems are negative. Exam: 16:24 Constitutional: This is a well developed, well nourished patient who is awake, alert, kb and in no acute distress. Head/Face: Normocephalic, atraumatic. ENT: Moist Mucous membranes Cardiovascular: Regular rate and rhythm with a normal S1 and S2. No gallops, murmurs, or rubs. No pulse deficits. Respiratory: Respirations even and unlabored. No increased work of breathing, no retractions or nasal flaring. Skin: Warm, dry with normal turgor. Normal color. MS/ Extremity: Pulses equal, no cyanosis. Neurovascular intact. Full, normal range of motion. Neuro: Awake and alert, GCS 15, oriented to person, place, time, and situation. Moves all extremities. Normal gait. 16:24 Psych: Behavior/mood is suicidal, Affect is flat, Oriented to person, place, time, Patient having thoughts of suicide. Plan for suicide is overdose Judgement / Insight is normal. Memory is normal. Delusions/hallucinations are not present. 16:58 ECG was reviewed by the Attending Physician. kb Vital Signs: 15:51 BP 123 / 83; Pulse 16; Resp 95; Temp 98.4; Pulse Ox 99% ; Weight 77.11 kg; Height 5 ft. vg1 4 in. (162.56 cm); Pain 5/10; 16:19 BP 140 / 88; Pulse 94; Resp 18; Pulse Ox 100% on R/A; Pain 0/10; ld1 17:01 BP 136 / 82; Pulse 86; Resp 17; Pulse Ox 100% ; ld1 18:11 BP 138 / 90; Pulse 72; Resp 18; Pulse Ox 97% on R/A; ld1 19:41 BP 96 / 53; Pulse 88; Resp 15; Temp 97.9(O); Pulse Ox 98% on R/A; ld1 22:24 BP 98 / 60; Pulse 85; Resp 20; Temp 98.7(O); Pulse Ox 98% on R/A; ld1 15:51 Body Mass Index 29.18 (77.11 kg, 162.56 cm) vg1 MDM: 16:00 Patient medically screened. kb 16:24 Data reviewed: vital signs, nurses notes. Data interpreted: Pulse oximetry: on room air kb is 100 %. Interpretation: normal. 16:24 Counseling: I had a detailed discussion with the patient and/or guardian regarding: the kb historical points, exam findings, and any diagnostic results supporting the discharge/admit diagnosis, lab results, the need to transfer to another facility, [facility] does not immediately have the required specialist. 20:33 ED course: Transfer initiated. Pt will be going to a psych facility on a voluntary kb basis. 20:56 ED course: Nurse to nurse done with Kandis at [facility]. kb 21:04 ED course: Nurse to nurse done with Janeth at [facility]. kb 21:12 ED course: Discussed case with Dr More at [facility]. He accepts pt for transfer.kb 11 16:01 Order name: Acetaminophen kb 07/02 16:01 Order name: Basic Metabolic Panel kb 07/02 16:01 Order name: CBC with Diff kb 07/02 16:01 Order name: ETOH Level; Complete Time: 17:27 kb 07/02 16:01 Order name: Hepatic Function; Complete Time: 17:27 kb 07/02 16:01 Order name: PT-INR; Complete Time: 17:27 kb 07/02 16:01 Order name: Ptt, Activated; Complete Time: 17:27 kb 07/02 16:01 Order name: Salicylate; Complete Time: 17:40 kb 07/02 16:01 Order name: Urine Drug Screen; Complete Time: 17:27 kb 07/02 16:01 Order name: Acetaminophen Level; Complete Time: 17:27 EDMS 07/02 16:01 Order name: Basic Metabolic Panel; Complete Time: 17:27 EDMS 07/02 16:01 Order name: CBC with Automated Diff; Complete Time: 17:08 EDMS 07/02 16:08 Order name: SARS-COV-2 RT PCR; Complete Time: 19:38 EDMS 07/02 16:01 Order name: EKG; Complete Time: 16:01 kb 07/02 16:01 Order name: EKG - Nurse/Tech; Complete Time: 17:01 kb 07/02 16:01 Order name: IV Saline Lock; Complete Time: 17:01 kb 07/02 16:01 Order name: Labs collected and sent; Complete Time: 17:01 kb 07/02 16:01 Order name: Suicide Screening ([place]); Complete Time: 17:00 kb 07/02 16:01 Order name: Urine Dipstick-Ancillary (obtain specimen); Complete Time: 17:01 kb 07/02 16:01 Order name: Misc. Order: Call poison control for recommendations; Complete Time: 16:26 kb 07/02 16:50 Order name: Urine Dipstick-Ancillary; Complete Time: 16:51 EDMS 07/02 16:51 Order name: Urine --Ancillary (enter results); Complete Time: 20:17 bd EC:58 Rate is 69 beats/min. Rhythm is regular. QRS [place] is Normal. OR interval is normal at kb 124 msec. QRS interval is normal at 90 msec. QT interval is normal at 400 msec. Administered Medications: No medications were administered Disposition: 07/03 11:41 Co-signature as Attending Physician, Justin Carranza MD I agree with the assessment and mac plan of care. Disposition Summary: 07/02/21 21:21 Transfer Ordered Transfer Location: Psych Facility kb Reason: Higher level of care kb Condition: Stable kb Problem: new kb Symptoms: are unchanged kb Accepting Physician: Dr More(07/02/21 22:25) ld1 Diagnosis - Suicidal ideations kb Forms: - Medication Reconciliation Form kb - SBAR form kb Signatures: Dispatcher [employer] EDDC Nancy Pacheco, LIT-C LIT-Justin Blanco MD MD cha Garcia, Victoria, RN RN vg1 Maranda Muse, RN RN ld1 Corrections: (The following items were deleted from the chart) 07/02 15:58 15:56 Home Meds: Vyvanse 10 mg Oral cap daily; vg1 vg1 16:10 16:08 SARS-COV-2 RT PCR+[id number] ordered. EDDC EDMS 22:25 21:21 Dr More kb ld1
[2021-07-02 23:46] VITALS: O2SAT 98
[2021-07-02 23:47] VITALS: BP 98/60; TEMP 98.7
--- NOTE | 2021-07-03 11:48 | EKG ---
Test Date: 2021-07-02 Test Time: 16:56:19 Juvenile Justice Officer: [place] MEASUREMENT RESULTS: Intervals: Rate: 69 VA: 124 QRSD: 90 QT: 400 QTc: 428 [place]: P: 28 VA: 124 QRS: 72 T: 40 INTERPRETIVE STATEMENTS: Normal sinus rhythm Normal ECG Compared to ECG 07/06/2019 10:30:38 No significant changes Electronically Signed On 07-03-21 11:46:11 CDT by Wesley Nguyen
== END 2021-07-02 22:25 ==
LOC: ER 15:29
DX: T43.212A Poisoning by selective serotonin and norepinephrine reuptake inhibitors, intentional self-harm, initial encounter (principal); F32.A Depression, unspecified; F41.9 Anxiety disorder, unspecified; Z20.822 Contact with and (suspected) exposure to COVID-19; Z88.8 Allergy status to other drugs, medicaments and biological substances
CPT/HCPCS: 93005; 85025; 80048; 36415; 80320; 80329 ×2; 81025; 85610; 80076; 85730; 81003; 80307; 99285; U0003

== ENCOUNTER 2021-08-08 12:36 | Emergency (ER) | payer OTHER, BC ==
--- NOTE | 2021-08-08 13:34 | RAD REPORT ---
EXAM DESCRIPTION: CT - Ct Stroke Brain Wo Cont - 08/08/2021 1:20 pm CLINICAL HISTORY: Syncope COMPARISON: 2019 TECHNIQUE: Computed axial tomography of the head was obtained. All CT scans are performed using dose optimization technique as appropriate and may include automated exposure control or mA/KV adjustment according to patient size. FINDINGS: An intracranial bleed is not seen . The ventricles are normal in caliber. No extra-axial fluid collection is noted. Mild cerebellar tonsillar ectopia Fluid within the sinuses/ mastoids is not seen. IMPRESSION: No acute intracranial abnormality is seen. If patient's symptoms persist MRI of the bra in would be recommended. Nancy Pacheco emergency notified 1:29 p.m. August 08, 2021
[2021-08-08 14:32] LABS: Urine Blood Trace-lysed (Negative); Urine Glucose Negative (Negative); Urine Protein Negative (Negative); Urine Specific Gravity 1.025 (1.005-1.030)
[2021-08-08 14:48] LABS: Absolute Lymphocytes (CBC) 2.5 K/uL (0.7-4.9); Basophils % 0.4 % (0-1.3); Hematocrit 36.8 % (36.0-45.0); Lymphocytes % 29.2 % (15.3-44.8); MPV 6.8 fL (7.6-11.3); RBC Red Blood Cell Count 4.36 M/uL (3.86-4.86)
[2021-08-08 14:52] LABS: BUN Blood Urea Nitrogen 8 mg/dL (7-18); Bicarbonate 27 mmol/L (21-32); Glucose Level 80 mg/dL (74-106); Potassium 3.8 mmol/L (3.5-5.1); Sodium Level 142 mmol/L (136-145)
--- NOTE | 2021-08-08 16:00 | EDPHYS ---
Physician Documentation [facility] Name: Jen Tavarez Age: 21 yrs Sex: Female : 2000 Arrival Date: 08/08/2021 Time: 12:44 Bed 16 Private MD: ED Physician Antonieta Lacey HPI: 08/08 13:14 This 21 yrs old Female presents to ER via Ambulatory with complaints of Syncope, sp3 Nausea/Vomiting. 13:14 21-year-old female with history of seizures, migraine, psych/anxiety presents with near sp3 syncope for 24 hours was told by her PCP to come in for evaluation. Patient states that she has had decreased p.o. intake and feels like she is going to pass out when she stands up too quickly or moves her head too quickly. There is no complaints of vertigo and/or room spinning. She also denies any heavy bleeding and only has menses once every 3 months in between NuvaRing's. She also denies headache, neck pain, chest pain, back pain, shortness of breath, URI symptoms, fever, known sick contacts, abdominal pain, vomiting or diarrhea (but does state that she has mild nausea), full syncope, injuries, rash, any other ROS at this time.. Historical: - Allergies: 12:51 Fosphenytoin; [facility] - Home Meds: 12:51 Xanax Oral [Active]; Ambien Oral [Active]; [facility] - PMHx: 12:51 Seizures; Migraine; Anxiety; [facility] - Immunization history:: Adult Immunizations up to date, . - Social history:: Smoking status: Patient denies any tobacco usage or history of. ROS: 13:15 Constitutional: Negative for fever, chills, and weight loss, Eyes: Negative for injury, sp3 pain, redness, and discharge, ENT: Negative for injury, pain, and discharge, Neck: Negative for injury, pain, and swelling, Cardiovascular: Negative for chest pain, palpitations, and edema, Respiratory: Negative for shortness of breath, cough, wheezing, and pleuritic chest pain, Abdomen/GI: Negative for abdominal pain, nausea, vomiting, diarrhea, and constipation, Back: Negative for injury and pain, MS/Extremity: Negative for injury and deformity, Skin: Negative for injury, rash, and discoloration, Psych: Negative for depression, anxiety, suicide ideation, homicidal ideation, and hallucinations, Allergy/Immunology: Negative for hives, rash, and allergies, Endocrine: Negative for neck swelling, polydipsia, polyuria, polyphagia, and marked weight changes, Hematologic/Lymphatic: Negative for swollen nodes, abnormal bleeding, and unusual bruising. 13:15 Neuro: Positive for near syncope. Exam: 13:16 Constitutional: This is a well developed, well nourished patient who is awake, alert, sp3 and in no acute distress. Head/Face: Normocephalic, atraumatic. Eyes: Pupils equal round and reactive to light, extra-ocular motions intact. Lids and lashes normal. Conjunctiva and sclera are non-icteric and not injected. Cornea within normal limits. Periorbital areas with no swelling, redness, or edema. ENT: Nares patent. No nasal discharge, no septal abnormalities noted. External auditory canals are clear. Oropharynx with no redness, swelling, or masses, exudates, or evidence of obstruction, uvula midline. Mucous membranes moist. Neck: Trachea midline, no thyromegaly or masses palpated, and no cervical lymphadenopathy. Supple, full range of motion without nuchal rigidity, or vertebral point tenderness. No Meningismus. Chest/axilla: Normal chest wall appearance and motion. Nontender with no deformity. No lesions are appreciated. Cardiovascular: Regular rate and rhythm with a normal S1 and S2. No gallops, murmurs, or rubs. Normal PMI, no JVD. No pulse deficits. Respiratory: Lungs have equal breath sounds bilaterally, clear to auscultation and percussion. No rales, rhonchi or wheezes noted. No increased work of breathing, no retractions or nasal flaring. Abdomen/GI: Soft, non-tender, with normal bowel sounds. No distension or tympany. No guarding or rebound. No evidence of tenderness throughout. Back: No spinal tenderness. No costovertebral tenderness. Full range of motion. Skin: Warm, dry with normal turgor. Normal color with no rashes, no lesions, and no evidence of cellulitis. MS/ Extremity: Pulses equal, no cyanosis. Neurovascular intact. Full, normal range of motion. Neuro: Awake and alert, GCS 15, oriented to person, place, time, and situation. Cranial nerves II-XII grossly intact. Motor strength 5/5 in all extremities. Sensory grossly intact. Cerebellar exam normal. Normal gait. Psych: Awake, alert, with orientation to person, place and time. Behavior, mood, and affect are within normal limits. Vital Signs: 12:45 BP 135 / 77; Pulse 85; Resp 16; Temp 98.0; Pulse Ox 100% ; Weight 77.11 kg; Height 5 5 ft. 4 in. (162.56 cm); 14:14 BP 117 / 75; Pulse 89; Resp 16 S; Pulse Ox 100% on R/A; jd3 15:22 Pulse 88; Resp 16 S; Pulse Ox 100% on R/A; jd3 16:23 BP 118 / 87; Pulse 86; Resp 16 S; Pulse Ox 100% on R/A; jd3 12:45 Body Mass Index 29.18 (77.11 kg, 162.56 cm) 5 MDM: 13:02 Patient medically screened. sp3 13:16 Data reviewed: vital signs, nurses notes. ED course: 21-year-old female with near sp3 syncope. Will obtain CT scan of the head and routine labs as well as EKG. If work-up is negative will discharge patient home with PCP follow-up regarding her new psychiatric medications that she has recently been switched to. I do not believe patient is having a CVA, ACS, TAD, other vascular abnormality, metabolic syndrome, any other critical findings at this time.. 15:59 ED course: CT scan of the head and laboratory values are all negative. Will discharge sp3 patient home at this time with primary follow-up.. 08/08 13:10 Order name: Basic Metabolic Panel; Complete Time: 15:58 sp3 08/08 13:10 Order name: CBC with Diff; Complete Time: 15:58 sp3 08/08 13:10 Order name: CT Stroke Brain w/o Contrast; Complete Time: 15:58 sp3 08/08 13:10 Order name: EKG; Complete Time: 13:11 sp3 08/08 14:32 Order name: Urine Dipstick-Ancillary; Complete Time: 15:58 EDMS 08/08 14:49 Order name: Urine --Ancillary (enter results) bd 08/08 13:10 Order name: Cardiac monitoring; Complete Time: 13:51 sp3 08/08 13:10 Order name: EKG - Nurse/Tech; Complete Time: 13:51 sp3 08/08 13:10 Order name: IV Saline Lock; Complete Time: 14:25 sp3 08/08 13:10 Order name: NPO; Complete Time: 13:14 sp3 08/08 13:10 Order name: Urine Test (obtain specimen); Complete Time: 14:34 sp3 Administered Medications: No medications were administered Disposition Summary: 08/08/21 16:00 Discharge Ordered Location: Home sp3 Condition: Stable sp3 Diagnosis - Near syncope sp3 Followup: sp3 - With: Private Physician - When: Upon discharge from the Emergency Department - Reason: Re-evaluation by your physician Discharge Instructions: - Discharge Summary Sheet jd3 Forms: - Work release form jd3 - Medication Reconciliation Form sp3 - Thank You Letter sp3 - Antibiotic Education sp3 - Prescription Opioid Use sp3 Signatures: Dispatcher [employer] Antonieta Sidhu MD MD sp3 Radha Trujillo RN RN jh5
--- NOTE | 2021-08-08 16:00 | ER ---
Nurse's Notes [facility] Name: Jen Tavarez Age: 21 yrs Sex: Female : 2000 Arrival Date: 08/08/2021 Time: 12:44 Bed 16 Private MD: Diagnosis: Near syncope Presentation: 08/08 12:45 Chief complaint: Patient states: dizzy for a few days now and then today I passed out [facility] at work. Last year when I got the COVID vaccine my brain became swollen and I stayed at [facility] for a week and all my meds were changed recently about 3 weeks ago. My doctor, Jocelyn with [facility] told me to come here. Coronavirus screen: Vaccine status: Patient reports receiving the 1st dose of the Covid vaccine. not allowed to have second one due to swelling on brain from first dose Client denies travel out of the [place] in the last 14 days. Ebola Screen: Patient negative for fever greater than or equal to 101.5 degrees Fahrenheit, and additional compatible Ebola Virus Disease symptoms Patient denies exposure to infectious person. Patient denies travel to an Ebola-affected area in the 21 days before illness onset. No symptoms or risks identified at this time. Initial Sepsis Screen: Does the patient meet any 2 criteria? No. Patient's initial sepsis screen is negative. Does the patient have a suspected source of infection? No. Patient's initial sepsis screen is negative. Risk Assessment: Do you want to hurt yourself or someone else? Patient reports no desire to harm self or others. Onset of symptoms was July 2021. 12:45 Method Of Arrival: Ambulatory [facility] 12:45 Acuity: HALLEY 3 [facility] Triage Assessment: 12:52 General: Appears in no apparent distress. well groomed, well developed, well nourished, [facility] Behavior is calm, cooperative, appropriate for age. Pain: Denies pain. Neuro: Denies weakness blurred vision difficulty swallowing, paresthesias numbness headache photophobia diplopia. Neuro: Reports dizziness, since on and off, thought she is dehydrated. Cardiovascular: No deficits noted. Capillary refill < 3 seconds Patient's skin is warm and dry. Historical: - Allergies: 12:51 Fosphenytoin; 5 - Home Meds: 12:51 Xanax Oral [Active]; Ambien Oral [Active]; [facility] - PMHx: 12:51 Seizures; Migraine; Anxiety; [facility] - Immunization history:: Adult Immunizations up to date, . - Social history:: Smoking status: Patient denies any tobacco usage or history of. Screenin:33 Abuse screen: Denies threats or abuse. Nutritional screening: No deficits noted. jd3 Tuberculosis screening: No symptoms or risk factors identified. Fall Risk Ambulatory Aid- None/Bed Rest/Nurse Assist (0 pts). Gait- Normal/Bed Rest/Wheelchair (0 pts) Mental Status- Oriented to own ability (0 pts). Total Reynaga Fall Scale indicates No Risk (0-24 pts). Assessment: 13:31 General: Appears in no apparent distress. comfortable, Behavior is calm, cooperative, jd3 appropriate for age. Pain: Denies pain. Neuro: Level of Consciousness is awake, alert, obeys commands, Oriented to person, place, time, situation, Reports dizziness. Cardiovascular: Heart tones S1 S2 present Capillary refill < 3 seconds Patient's skin is warm and dry. Rhythm is regular. Respiratory: Airway is patent Respiratory effort is even, unlabored, Respiratory pattern is regular, symmetrical, Breath sounds are clear bilaterally. GI: Abdomen is flat, non-distended, Abd is soft and non tender X 4 quads. Reports nausea, Patient currently denies vomiting. : No signs and/or symptoms were reported regarding the genitourinary system. EENT: No signs and/or symptoms were reported regarding the EENT system. Derm: Skin is intact, Skin is dry, Skin is normal, Skin temperature is warm. Musculoskeletal: Circulation, motion, and sensation intact. Range of motion: intact in all extremities. 14:14 Reassessment: Patient appears in no apparent distress at this time. No changes from jd3 previously documented assessment. Patient and/or family updated on plan of care and expected duration. Pain level reassessed. Patient is alert, oriented x 3, equal unlabored respirations, skin warm/dry/pink. 15:22 Reassessment: Patient appears in no apparent distress at this time. No changes from jd3 previously documented assessment. Patient and/or family updated on plan of care and expected duration. Pain level reassessed. Patient is alert, oriented x 3, equal unlabored respirations, skin warm/dry/pink. 16:23 Reassessment: Patient appears in no apparent distress at this time. Patient and/or jd3 family updated on plan of care and expected duration. Pain level reassessed. Patient is alert, oriented x 3, equal unlabored respirations, skin warm/dry/pink. Vital Signs: 12:45 BP 135 / 77; Pulse 85; Resp 16; Temp 98.0; Pulse Ox 100% ; Weight 77.11 kg; Height 5 [facility] ft. 4 in. (162.56 cm); 14:14 BP 117 / 75; Pulse 89; Resp 16 S; Pulse Ox 100% on R/A; jd3 15:22 Pulse 88; Resp 16 S; Pulse Ox 100% on R/A; jd3 16:23 BP 118 / 87; Pulse 86; Resp 16 S; Pulse Ox 100% on R/A; jd3 12:45 Body Mass Index 29.18 (77.11 kg, 162.56 cm) [facility] ED Course: 12:44 Patient arrived in ED. [facility] 12:51 Triage completed. [facility] 12:56 Antonieta Lacey MD is Attending Physician. sp3 13:14 Kamar Price RN is Primary Nurse. jd3 13:20 CT Stroke Brain w/o Contrast In Process Unspecified. EDMS 13:31 Arm band placed on. jd3 13:33 Patient has correct armband on for positive identification. Bed in low position. Call jd3 light in reach. Side rails up X 1. Adult w/ patient. teletypesetter monitor on. Pulse ox on. NIBP on. 14:00 Missed attempt(s): 22 gauge in right antecubital area. Bleeding controlled, band aid jd3 applied, catheter tip intact. 16:24 No provider procedures requiring assistance completed. IV discontinued, intact, jd3 bleeding controlled, No redness/swelling at site. Pressure dressing applied. Administered Medications: No medications were administered Outcome: 16:00 Discharge ordered by . sp3 16:24 Discharged to home ambulatory, with family. jd3 16:24 Condition: stable 16:24 Discharge instructions given to patient, Instructed on discharge instructions, follow up and referral plans. Demonstrated understanding of instructions, follow-up care. 16:25 Patient left the ED. jd3 Signatures: Dispatcher [employer] EDMS Kamar Price RN RN jd3 Antonieta Lacey MD MD sp3 Radha Trujillo RN RN jh5 Lluvia Carmichael 5
[2021-08-08 16:24] LABS: Urine Specific Gravity/Preg 1.025 (1.005-1.030)
[2021-08-08 16:31] VITALS: TEMP 98; O2SAT 100
[2021-08-08 16:39] VITALS: BP 118/87
== END 2021-08-08 16:25 | disposition home or self-care (01) ==
LOC: ER 12:36
DX: R55 Syncope and collapse (principal); Z88.8 Allergy status to other drugs, medicaments and biological substances
CPT/HCPCS: 36415; 70450; 80048; 81003; 81025; 85025; 93005; 99284